=== PATIENT | female | born 1980 | race Caucasian/White ===

== ENCOUNTER 2016-12-12 18:27 | Emergency (ER) | payer OTHER ==
[~2016-12-12] VITALS: Ht 170.2 cm; Wt 88.5 kg
[2016-12-12] MEDS ORDERED: BUSP5TA PO (18:43)
[2016-12-12] MEDS ORDERED: SERT25TA PO (18:43)
[2016-12-12] MEDS ORDERED: CLEO300C2 PO (18:43)
[2016-12-12] MEDS ORDERED: CYPR4TA PO (18:43)
[2016-12-12] MEDS ORDERED: MAGIC MOUTHWASH SUSPENSION BTL SS ONE ×2 (22:45→23:00)
[2016-12-12] MEDS ORDERED: KETOROLAC 30 MG/ML VIAL (J1885) IV ONE (22:45)
[2016-12-12] MEDS ORDERED: diphenhydrAMINE INJ 50MG/ML VIAL (J1200) IV STA (22:49)
[2016-12-12] MEDS ORDERED: FAMOTIDINE INJ 20MG/2ML VIAL (S0028) IVP ONE (23:00)
[2016-12-12] MEDS ORDERED: methylPREDNISolone INJ 125 MG/2 ML VIAL (J2930) IV ONE (23:00)
[2016-12-12 23:08] LABS: BASO # 0.1 K/mm3 (0.0-0.2); BASO % 0.3 % (0.0-1.0); EOS # 0.4 K/mm3 (0.0-0.50); EOS % 1.7 % (0.0-3.0); LARGE UNSTAINED CELL # 0.3 K/mm3 (0.0-0.4); LARGE UNSTAINED CELL % 1.1 % (0.0-4.0); LYMPH # 5.4 K/mm3 (1.5-4.5); LYMPH % 21.3 % (24.0-44.0); MEAN CORPUSCULAR HEMOGLOBIN 31.2 pg (27.0-33.0); MEAN CORPUSCULAR HGB CONC 34.3 g/dl (32.0-36.5); MEAN CORPUSCULAR VOLUME 90.9 fl (80.0-96.0); MONO # 1.2 K/mm3 (0.0-0.8); NEUTROPHILS % 70.6 % (36.0-66.0); PLATELET COUNT, AUTOMATED 395 k/mm3 (150-450); RED CELL DISTRIBUTION WIDTH 12.6 % (11.5-14.5)
[2016-12-12 23:09] LABS: WHITE BLOOD COUNT 24.1 K/mm3 (4.0-10.0)
[2016-12-12 23:29] LABS: ANION GAP 8 MEQ/L (8-16); BLOOD UREA NITROGEN 12 MG/DL (7-18); CALCIUM LEVEL 9.2 MG/DL (8.5-10.1); CARBON DIOXIDE LEVEL 26 MEQ/L (21-32); CHLORIDE LEVEL 103 MEQ/L (98-107); CREATININE FOR GFR 1.06 MG/DL (0.55-1.02); GLOMERULAR FILTRATION RATE > 60.0 (>60); GLUCOSE, FASTING 102 MG/DL (70-105); POTASSIUM SERUM 3.4 MEQ/L (3.5-5.1); SODIUM LEVEL 137 MEQ/L (136-145)
[2016-12-12 23:44] LABS: ERYTHROCYTE SEDIMENTATION RATE 14 mm/hr (0-20)
[2016-12-13] MEDS ORDERED: PIPERACILLIN/TAZOBACTAM SOD 3.375 GM in D5W MINI-BAG PLUS 50 ML IV ONE (00:45)
[2016-12-13] MEDS ORDERED: ISOVUE-370 76% 100ML VIAL (Q9967) As Ordered ONE (00:53)
--- NOTE | 2016-12-13 01:50 | REPUSA ---
CLINICAL HISTORY: Swollen lips. TECHNIQUE: Multiple axial CT images were obtained through the neck with IV contrast material. MPR cor onal and sagittal sequences were obtained. COMMENTS: Diffuse edema and swelling of the lips. Mild tonsillar enlargement. The oropharyngeal soft tissues are otherwise normal and bilaterally symmetric. The piriform sinuses a re normal. There is no supra or infraglottic laryngeal mass. The proximal trachea is normal. There is no paravertebral soft tissue mass. The salivary glands are normal. The paravertebral soft tissue space is normal. Limited images through the posterior fossa demonstrate no evidence for tonsilar herniation. Evaluation of the visualized lung apices reveals no evidence for abnormality. There is no evidence for abnormal enhancement. 1.2 cm nodule in the left upper lobe. Mildly prominent cervical lymph nodes. IMPRESSION: Swollen lips. Mild tonsillar enlargement. Probably an inflammatory pathology. No critical airway narrowing. Mildly prominent cervical lymph nodes. Thank you for your kind referral of this patient.
[2016-12-13] MEDS ORDERED: PRED20TA PO (02:43)
[2016-12-13] MEDS ORDERED: AUGM875T27 PO (02:43)
[2016-12-13 03:05] VITALS: BP 154/96
== END 2016-12-13 03:06 | disposition home or self-care (01) ==
LOC: M ED 20:36
DX: L03.211 Cellulitis of face (principal); F41.9 Anxiety disorder, unspecified; F33.9 Major depressive disorder, recurrent, unspecified; Z79.899 Other long term (current) drug therapy; Z88.3 Allergy status to other anti-infective agents; Z88.8 Allergy status to other drugs, medicaments and biological substances; F17.210 Nicotine dependence, cigarettes, uncomplicated

== ENCOUNTER 2016-12-14 07:54 | Emergency (ER) | payer OTHER ==
[~2016-12-14] VITALS: Ht 170.2 cm; Wt 90.7 kg
[~2016-12-14 07:54] MED LIST: AUGM875T27 PO; BUSP5TA PO; CLEO300C2 PO; CYPR4TA PO; PRED20TA PO; SERT25TA PO
[2016-12-14] MEDS ORDERED: IPRATROPIUM 0.5MG/ALBUTEROL 2.5MG INH SOL UD 3ML (DUONEB)(J7620) NEB ONE (10:30)
[2016-12-14] MEDS ORDERED: LIDOCAINE VISCOUS 2% SOLN 15ML UDC SSP ONE (11:30)
[2016-12-14 15:11] VITALS: BP 105/65
== END 2016-12-14 15:12 | disposition home or self-care (01) ==
LOC: M ED 09:32
DX: R06.02 Shortness of breath (principal); F41.9 Anxiety disorder, unspecified; F32.9 Major depressive disorder, single episode, unspecified; G43.909 Migraine, unspecified, not intractable, without status migrainosus; F17.200 Nicotine dependence, unspecified, uncomplicated; Z88.8 Allergy status to other drugs, medicaments and biological substances

== ENCOUNTER 2018-09-18 17:27 | Emergency (ER) | payer MEDICAID, OTHER, SELFPAY ==
[~2018-09-18] VITALS: Ht 167.6 cm; Wt 88.6 kg
[~2018-09-18 17:27] MED LIST changes: -AUGM875T27 PO; +AUGM875T28 PO; -SERT25TA PO; +SERT25TA85 PO
[2018-09-18] MEDS ORDERED: TIZA2CAP PO (18:53)
[2018-09-18] MEDS ORDERED: MOTR200T44 PO (18:53)
[2018-09-18] MEDS ORDERED: VENL75TA2 PO (18:53)
[2018-09-18 20:33] VITALS: BP 162/100
[2018-09-18] MEDS ORDERED: NS 1,000 ML IV ONE (20:45)
[2018-09-18] MEDS ORDERED: MORPHINE 4 MG/ML 1ML VIAL/SYRINGE (J2270) IV ONE (20:45)
[2018-09-18] MEDS ORDERED: METOCLOPRAMIDE INJ 10MG/2ML VIAL (J2765) IV ONE (20:45)
[2018-09-18 20:57] LABS: BASO # 0.1 10^3/uL (0.0-0.2); BASO % 0.3 % (0.0-1.0); EOS # 0.3 10^3/uL (0.0-0.50); EOS % 1.4 % (0.0-3.0); LYMPH # 3.6 10^3/uL (1.5-4.5); LYMPH % 18.4 % (24.0-44.0); MEAN CORPUSCULAR HEMOGLOBIN 31.5 pg (27.0-33.0); MEAN CORPUSCULAR HGB CONC 33.3 g/dl (32.0-36.5); MEAN CORPUSCULAR VOLUME 94.4 fl (80.0-96.0); MONO # 1.3 10^3/uL (0.0-0.8); MONO % 6.6 % (0.0-5.0); NEUTROPHILS # 14.2 10^3/uL (1.8-7.7); NEUTROPHILS % 72.7 % (36.0-66.0); PLATELET COUNT, AUTOMATED 340 10^3/uL (150-450); RED BLOOD COUNT 4.13 10^6/uL (4.00-5.40); WHITE BLOOD COUNT 19.5 10^3/uL (4.0-10.0)
[2018-09-18 21:14] LABS: BLOOD UREA NITROGEN 6 MG/DL (7-18); C REACTIVE PROTEIN QUANTITATIV 7.55 MG/DL (0.00-0.30); CALCIUM LEVEL 8.4 MG/DL (8.5-10.1); CARBON DIOXIDE LEVEL 21 MEQ/L (21-32); CHLORIDE LEVEL 111 MEQ/L (98-107); CREATININE FOR GFR 0.85 MG/DL (0.55-1.30); GLOMERULAR FILTRATION RATE > 60.0 (>60); GLUCOSE, FASTING 86 MG/DL (70-100); POTASSIUM SERUM 3.8 MEQ/L (3.5-5.1); SODIUM LEVEL 139 MEQ/L (136-145)
[2018-09-18] MEDS ORDERED: CLINDAMYCIN 900 MG in APPROPRIATE DILUENT 1 EA IV ONE (21:15)
[2018-09-18] MEDS ORDERED: ISOVUE-370 76% 100ML VIAL (Q9967) As Ordered ONE (21:28)
[2018-09-18 21:52] LABS: ERYTHROCYTE SEDIMENTATION RATE 38 mm/hr (0-20)
--- NOTE | 2018-09-18 22:22 | REPVR ---
EXAM: CT Neck With Contrast EXAM DATE/TIME: 09/18/2018 9:51 PM CLINICAL HISTORY: 37 years old, female; Pain; Neck pain; Additional info: Left lower jaw pain/swelling, dental injury TECHNIQUE: Axial computed tomography images of the neck with intravenous contrast. All CT scans at this facility use at least one of these dose optimization techniques: automated exposure control; mA and/or kV adjustment per patient size (includes targeted exams where dose is matched to clinical indication); or iterative reconstruction. Coronal and sagittal reformatted images were created and reviewed. Technologist notes: Facility exam id and description: [facility]. [facility] CT neck with contrast COMPARISON: CT Neck with contrast 12/13/2016 12:56 AM FINDINGS: Asymmetric left pre-mandibular facial soft tissue swelling and skin thickening is present. Bony resorption is present at the base of the mandibular left central and lateral incisors and second premolar and also the right mandibular lateral incisor and canine. Nonorganized edema or fluid is present superficial to the left mandibular body. No drainable organized abscess. Parapharyngeal and posterior nasopharynx soft tissue planes are symmetric. No asymmetric enlargement or inflammation of the pharyngeal tonsils. Vascular structures of the neck enhance normally. Prominent bilateral cervical chain and jugulodigastric lymph nodes. Muscles of mastication and strap muscles of the neck appear normal. Parotid and minor salivary glands are unremarkable. Floor of the mouth and tongue base soft tissues appear normal. Laryngeal structures appear normal. Thyroid gland shows no abnormality. Stable calcified granuloma, left lung apex. Bony structures are unremarkable for age. IMPRESSION: Perimandibular left facial cellulitis and phlegmon, apparently secondary to periodontal dental disease. No drainable abscess. No deep soft tissue infection or airway compromise Electronically signed by: Francois Sage On 09/18/2018 22:21:38 PM
[2018-09-18] MEDS ORDERED: CLEO300C2 PO (23:02)
[2018-09-18] MEDS ORDERED: HYDR-3715 PO (23:02)
[2018-09-18] MEDS ORDERED: NORCO 5/325MG TABLET (BULK FOR ED) PO ONE (23:15)
--- NOTE | 2018-09-24 20:50 | ED PDOC ---
Post-Departure Follow-Up jackie peter attisha faxed formal report of ct neck for fu Chantal Loomis MD Sep 24, 2018 20:50
== END 2018-09-18 23:21 | disposition home or self-care (01) ==
LOC: M ED 17:27
DX: L03.211 Cellulitis of face (principal); K05.30 Chronic periodontitis, unspecified; R11.0 Nausea; F41.9 Anxiety disorder, unspecified; F32.9 Major depressive disorder, single episode, unspecified; Z88.1 Allergy status to other antibiotic agents; Z88.8 Allergy status to other drugs, medicaments and biological substances; Z79.899 Other long term (current) drug therapy
CPT/HCPCS: 36415; 70491; 80048; 85025; 85652; 86140; 96374; 96375; 99284; J2270; J2765; Q9967

== ENCOUNTER 2018-12-05 16:13 | Emergency (ER) | payer MEDICAID ==
[~2018-12-05] VITALS: Ht 170.2 cm; Wt 99.1 kg
[~2018-12-05 16:13] MED LIST changes: +HYDR-3715 PO; +MOTR200T44 PO; +TIZA2CAP PO; +VENL75TA2 PO
[2018-12-05 16:57] LABS: HEMATOCRIT 40.8 % (36.0-47.0); HEMOGLOBIN 13.8 g/dl (12.0-15.5); MEAN CORPUSCULAR HEMOGLOBIN 31.7 pg (27.0-33.0); MEAN CORPUSCULAR HGB CONC 33.8 g/dl (32.0-36.5); MEAN CORPUSCULAR VOLUME 93.8 fl (80.0-96.0); PLATELET COUNT, AUTOMATED 372 10^3/uL (150-450); RED BLOOD COUNT 4.35 10^6/uL (4.00-5.40)
[2018-12-05 17:19] LABS: ALBUMIN 3.7 GM/DL (3.2-5.2); ALT/SGPT 44 U/L (12-78); BILIRUBIN,DIRECT < 0.1 MG/DL (0.0-0.2); BILIRUBIN,TOTAL 0.2 MG/DL (0.2-1.0); BLOOD UREA NITROGEN 12 MG/DL (7-18); CALCIUM LEVEL 8.8 MG/DL (8.5-10.1); CARBON DIOXIDE LEVEL 24 MEQ/L (21-32); CHLORIDE LEVEL 113 MEQ/L (98-107); CREATININE FOR GFR 1.22 MG/DL (0.55-1.30); GLOMERULAR FILTRATION RATE 52.5 (>60); GLUCOSE, FASTING 172 MG/DL (70-100); POTASSIUM SERUM 4.3 MEQ/L (3.5-5.1); SODIUM LEVEL 140 MEQ/L (136-145); TOTAL PROTEIN 6.7 GM/DL (6.4-8.2)
[2018-12-05 17:22] LABS: BASOPHILS 1 % (0-4); EOSINOPHILS 2 % (0-5); LYMPHOCYTES 44 % (16-52); MONOCYTES 5 % (0-8); NEUTROPHILS 48 % (35-75); PLATELET ESTIMATE NORMAL (NORMAL)
[2018-12-05] MEDS ORDERED: CLAR10CA3 PO (17:42)
[2018-12-05 17:52] VITALS: BP 134/82
== END 2018-12-05 18:02 | disposition home or self-care (01) ==
LOC: M ED 16:13
DX: R30.0 Dysuria (principal); R79.89 Other specified abnormal findings of blood chemistry; L29.9 Pruritus, unspecified; N18.3 Chronic kidney disease, stage 3 (moderate); Z79.899 Other long term (current) drug therapy; Z88.1 Allergy status to other antibiotic agents; Z88.8 Allergy status to other drugs, medicaments and biological substances

== ENCOUNTER 2018-12-17 15:41 | Emergency (ER) | payer MEDICAID ==
[~2018-12-17] VITALS: Ht 167.6 cm; Wt 100.0 kg
[~2018-12-17 15:41] MED LIST changes: +CLAR10CA3 PO
[2018-12-17] MEDS ORDERED: PRED20TA PO (18:47)
[2018-12-17] MEDS ORDERED: CYCL10TA PO (18:47)
[2018-12-17 18:53] LABS: HEMATOCRIT 41.9 % (36.0-47.0); HEMOGLOBIN 14.1 g/dl (12.0-15.5); MEAN CORPUSCULAR HEMOGLOBIN 31.4 pg (27.0-33.0); MEAN CORPUSCULAR HGB CONC 33.7 g/dl (32.0-36.5); MEAN CORPUSCULAR VOLUME 93.3 fl (80.0-96.0); PLATELET COUNT, AUTOMATED 358 10^3/uL (150-450); RED BLOOD COUNT 4.49 10^6/uL (4.00-5.40); WHITE BLOOD COUNT 26.1 10^3/uL (4.0-10.0)
[2018-12-17 19:08] LABS: HCG, SERUM QUALITATIVE NEGATIVE (NEGATIVE)
[2018-12-17 19:18] LABS: EOSINOPHILS 3 % (0-5); LYMPHOCYTES 37 % (16-52); MONOCYTES 5 % (0-8); NEUTROPHILS 55 % (35-75); PLATELET ESTIMATE NORMAL (NORMAL)
[2018-12-17 19:30] LABS: ALBUMIN 3.5 GM/DL (3.2-5.2); ALT/SGPT 35 U/L (12-78); BILIRUBIN,DIRECT < 0.1 MG/DL (0.0-0.2); BILIRUBIN,TOTAL 0.2 MG/DL (0.2-1.0); BLOOD UREA NITROGEN 15 MG/DL (7-18); CALCIUM LEVEL 9.3 MG/DL (8.5-10.1); CARBON DIOXIDE LEVEL 24 MEQ/L (21-32); CHLORIDE LEVEL 109 MEQ/L (98-107); CK-MB VALUE MASS < 1.0 NG/ML (<3.6); CPK CREATINE PHOSPHOKINASE 35 U/L (26-192); CREATININE FOR GFR 0.97 MG/DL (0.55-1.30); GLOMERULAR FILTRATION RATE > 60.0 (>60); GLUCOSE, FASTING 109 MG/DL (70-100); MB/CK RELATIVE INDEX 2.86 (< OR =4); NT-PRO BNP 69 PG/ML (<125); POTASSIUM SERUM 4.1 MEQ/L (3.5-5.1); SODIUM LEVEL 140 MEQ/L (136-145); TOTAL PROTEIN 6.7 GM/DL (6.4-8.2); TROPONIN I < 0.02 NG/ML (< 0.10)
[2018-12-17] MEDS ORDERED: IPRATROPIUM 0.5MG/ALBUTEROL 2.5MG INH SOL UD 3ML (DUONEB)(J7620) NEB ONE (20:00)
[2018-12-17] MEDS ORDERED: ISOVUE-370 76% 100ML VIAL (Q9967) As Ordered ONE (20:13)
[2018-12-17 23:00] VITALS: BP 128/89
[2018-12-17] MEDS ORDERED: PROAAER10 INH (23:05)
[2018-12-17] MEDS ORDERED: ACETAMINOPHEN TAB 650MG DOSE (2X325MG) PO ONE (23:15)
--- NOTE | 2018-12-18 00:12 | ECGEPIP ---
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
--- NOTE | 2018-12-18 07:09 | REP ---
CHEST, SINGLE VIEW: Single view of the chest performed. There is no acute infiltrate. The heart is not enlarged. The mediastinal silhouette is unremarkable. An old granuloma is seen in the left apex minimally larger than the prior chest radiograph of 06/21/2016. IMPRESSION: No acute pulmonary disease. Electronically Signed by Manny Castillo MD 12/19/2018 09:00 A
--- NOTE | 2018-12-18 13:44 | REP ---
REASON: Dyspnea and tachycardia. COMPARISON EXAMINATION: None. CONTRAST: 100 mL Isovue 370. There is excellent visualization of the pulmonary arterial vasculature. There are no focal filling defects present that would be considered consistent with pulmonary emboli. The thoracic aorta is normal. There are no pleural or pericardial effusions. There is no mediastinal or hilar adenopathy. The imaged upper abdomen shows diffuse low density throughout the hepatic parenchymal. The imaged osseous structures are within normal limits. Evaluation of the lung barlow shows a large calcified nodule in the apical posterior segment of the left upper lobe representing either a large calcified granuloma of benign hamartoma. There is a 3 mm sized nodule in the left lower lobe. There are no significant abnormal nodules, masses, or opacities. IMPRESSION: 1. There is no evidence of a pulmonary embolism. 2. Benign calcified nodule in the left upper lobe as described above. 3. 3 mm sized nodule in the left lower lobe. According to the revised Fleischner's Society criteria, this represents a category 2 lesion for which a 1-year followup is recommended. 4. There is diffuse fatty infiltration of the liver. Electronically Signed by Marito Herron DO 12/18/2018 02:07 P
--- NOTE | 2018-12-18 15:04 | ED PDOC ---
Post-Departure Follow-Up [facility] faxed formal report of cta chest for fu Chantal Loomis MD December 18, 2018 15:04
== END 2018-12-17 23:30 | disposition home or self-care (01) ==
LOC: M ED 15:41
DX: R06.00 Dyspnea, unspecified (principal); N18.9 Chronic kidney disease, unspecified; M54.5 Low back pain; Z72.0 Tobacco use; R91.1 Solitary pulmonary nodule; K76.0 Fatty (change of) liver, not elsewhere classified; Z79.899 Other long term (current) drug therapy; Z88.8 Allergy status to other drugs, medicaments and biological substances
CPT/HCPCS: 71045; 71275; 80048; 80076; 82550; 82553; 83880; 84703; 85025; 93005; 93041; 94640; 94760; 99285; Q9967

== ENCOUNTER 2018-12-31 17:51 | Inpatient (IN) | payer MEDICAID, OTHER ==
[~2018-12-31] VITALS: Ht 170.2 cm; Wt 100.1 kg
[~2018-12-31 17:51] MED LIST changes: +CYCL10TA PO; +PROAAER10 INH
[2018-12-31] MEDS ORDERED: HYDR-4517 PO (18:06)
[2018-12-31 18:16] LABS: BASO % 0.3 % (0.0-1.0); EOS # 0.2 10^3/uL (0.0-0.50); EOS % 1.7 % (0.0-3.0); HEMATOCRIT 40.2 % (36.0-47.0); HEMOGLOBIN 13.8 g/dl (12.0-15.5); LYMPH # 2.6 10^3/uL (1.5-4.5); LYMPH % 21.9 % (24.0-44.0); MEAN CORPUSCULAR HEMOGLOBIN 32.4 pg (27.0-33.0); MEAN CORPUSCULAR HGB CONC 34.3 g/dl (32.0-36.5); MEAN CORPUSCULAR VOLUME 94.4 fl (80.0-96.0); MONO # 0.7 10^3/uL (0.0-0.8); MONO % 5.9 % (0.0-5.0); NEUTROPHILS # 8.4 10^3/uL (1.8-7.7); PLATELET COUNT, AUTOMATED 360 10^3/uL (150-450); RED BLOOD COUNT 4.26 10^6/uL (4.00-5.40); WHITE BLOOD COUNT 12.1 10^3/uL (4.0-10.0)
[2018-12-31] MEDS ORDERED: NS 1,000 ML IV ONE (18:45)
[2018-12-31 18:53] LABS: ACETAMINOPHEN LEVEL 17.8 UG/ML (10.0-30.0); ALBUMIN 3.3 GM/DL (3.2-5.2); ALT/SGPT 37 U/L (12-78); BILIRUBIN,DIRECT 0.1 MG/DL (0.0-0.2); BILIRUBIN,TOTAL 0.5 MG/DL (0.2-1.0); BLOOD UREA NITROGEN 11 MG/DL (7-18); CALCIUM LEVEL 8.2 MG/DL (8.5-10.1); CARBON DIOXIDE LEVEL 23 MEQ/L (21-32); CHLORIDE LEVEL 110 MEQ/L (98-107); CPK CREATINE PHOSPHOKINASE 79 U/L (26-192); CREATININE FOR GFR 0.88 MG/DL (0.55-1.30); ETHYL ALCOHOL (ETHANOL) < 0.003 % (0.000-0.010); GLOMERULAR FILTRATION RATE > 60.0 (>60); GLUCOSE, FASTING 136 MG/DL (70-100); SALICYLATE LEVEL 5.7 MG/DL (5.0-30.0); SODIUM LEVEL 140 MEQ/L (136-145)
[2018-12-31 19:05] LABS: HCG, SERUM QUALITATIVE NEGATIVE (NEGATIVE)
[2018-12-31] MEDS ORDERED: HYDROCORTISONE 1% CREAM 30 GM TOP ONE (20:00)
[2018-12-31 22:21] LABS: AMPHETAMINES LEVEL URINE NEGATIVE (NEGATIVE); BARBITURATES URINE NEGATIVE (NEGATIVE); BENZODIAZEPINES URINE NEGATIVE (NEGATIVE); CANNABINOIDS URINE NEGATIVE (NEGATIVE); COCAINE METABOLITE URINE NEGATIVE (NEGATIVE); METHADONE URINE NEGATIVE (NEGATIVE); OPIATES URINE POSITIVE (NEGATIVE); PHENCYCLIDINE URINE NEGATIVE (NEGATIVE)
[2019-01-01] MEDS ORDERED: LORazepam 2 MG TAB PO ONE (03:30)
[2019-01-01] MEDS ORDERED: VENLAFAXINE **XR** 75MG CAPSULE PO ONE (03:30)
[2019-01-01] MEDS ORDERED: VENLAFAXINE 37.5 MG TAB PO ONE (03:30)
[2019-01-01] MEDS ORDERED: PROAAER10 INH (07:18)
[2019-01-01] MEDS ORDERED: VENL150C43 PO (07:18)
[2019-01-01] MEDS ORDERED: LORA-674 PO (07:18)
--- NOTE | 2019-01-01 08:15 | ECGEPIP ---
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
[2019-01-01 14:15] VITALS: BP 150/95
[2019-01-01] MEDS ORDERED: traZODone 50 MG TAB PO PRN (14:15)
[2019-01-01] MEDS ORDERED: MOM 30ML SUSPENSION UDC PO PRN (14:15)
[2019-01-01] MEDS ORDERED: hydrOXYzine 25 MG TAB PO PRN (14:15)
[2019-01-01] MEDS ORDERED: ALBUTEROL 90 MCG/ACT 8GM HFA INHALER INH PRN (14:15)
[2019-01-01] MEDS ORDERED: MAALOX 30 ML SUSP *UDC PO PRN (14:15)
[2019-01-01] MEDS ORDERED: CYCLOBENZAPRINE 10 MG TAB PO PRN (14:15)
[2019-01-01] MEDS: ACETAMINOPHEN TAB 650MG DOSE (2X325MG) PO PRN (15:57)
[2019-01-01] MEDS: VENLAFAXINE **XR** 75MG CAPSULE PO SCH (21:41)
[2019-01-02 06:50] VITALS: BP 124/71
[2019-01-02] MEDS: LORATADINE 10 MG TAB PO SCH (09:00)
[2019-01-02] MEDS: ACETAMINOPHEN TAB 650MG DOSE (2X325MG) PO PRN (10:35)
--- NOTE | 2019-01-02 12:40 | HPEPDOC ---
General Date of Admission Jan 01, 2019 at 15:40 Date of Service: Jan 02, 2019 Chief Complaint The patient is a 38-year-old female who presented to [facility] after she had consumed 10 pills of hydrocodone History of Present Illness Patient is a 38-year-old female with a past medical history of depression, anxiety, and CKD3 who presented to the emergency room after she had consumed 10 pills of hydrocodone. Patient had reported that she did not try to kill herself and took instead for back pain and body aches. Patient denies any current suicidal or homicidal ideation and she has not attempted this in the past. Currently, this is being managed by psychiatry. Hospitalist service was consulted for medical management. Patient denies any headache, nausea, vomiting, chest pain, shortness of breath, palpitations, cough, abdominal pain, constipation, diarrhea or urinary discomfort. Patient also reports that she has not experienced any fevers or chills in the last 2 weeks. Home Medications Scheduled Loratadine (Loratadine) 10 Mg Tablet, 10 MG PO DAILY, (Reported) Venlafaxine HCl (Venlafaxine HCl ER) 150 Mg Cap.er.24h, 150 MG PO QHS, (Reported) Scheduled PRN Albuterol Sulfate (Proair Hfa) 8.5 Gm Hfa.aer.ad, 2 PUFF INH Q4H PRN for SHORTNESS OF BREATH, (Reported) Cyclobenzaprine HCl (Cyclobenzaprine HCl) 10 Mg Tablet, 10 MG PO TID PRN for MUSCLE SPASMS, (Reported) Allergies Coded Allergies: bacitracin (Verified Allergy, Unknown, rash, 12/05/18) etodolac (Verified Allergy, Unknown, difficulty breathing, 12/05/18) Past Medical History Medical History Depression, anxiety, and CKD3 Surgical History Hysterectomy after failed Laparoscopic resection of an IUD Abscess incision and drainage Appendectomy Family History - Mother and Father with a history of high cholesterol and hypertension Social History - Denies the use of illicit drugs; reports social alcohol use; smoker of 18 years at less than one PPD - Denies recent travel or sick contacts - Lives with family - 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; 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 Review of Systems Other systems 10 point review of systems complete, all negative otherwise stated in HPI Vital Signs - Vitals: BP 124/71, HR 96, RR 18, Sat 97%RA, Temp 97.4F - General: Lying in bed, No acute distress, Speaking in full sentences, AAOx3 - HEENT: NC, AT, PERRLA, EOMI - CVS: +S1S2, no appreciable murmurs - Lungs: Fair air entry bilaterally, Clear to auscultation, No wheezing / rales / rhonchi - Abdomen: Soft, Non-distended, Non-tender - Extremities: No lower extremity edema, No calf tenderness - Neuro: No focal motor or sensory deficit - Skin: No visible rashes Plan / VTE VTE Prophylaxis Ordered?: Yes Plan Plan Possible drug overdose; suspected to be suicidal ideation - Currently patient denies any suicidal, or homicidal ideation - History of depression and anxiety - Patient has reported consumption of 10 pills of hydrocodone - Does not have a history of suicidal or homicidal ideation - Currently being managed by psychiatry Mild leukocytosis - possibly 2/2 reactive etiology; less likely 2/2 infectious etiology - Review of systems is negative - Patient remains afebrile and hemodynamically stable - Will continue to hold off on antibiotics Reported CKD3 - Creatinine is at 0.88 - Reports that she follows with nephrology as an outpatient No significant past medical history DVT prophylaxis - c/w early ambulation Thank you for allowing us to participate in the care of this patient, please re- consult as needed Dairy Tester was present throughout the duration of this history and physical SABRINA OCHOA MD Jan 02, 2019 12:40
--- NOTE | 2019-01-02 13:01 | MHHPEPDOC ---
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 Pt in the ED denied that the overdose was a suicide attempt and stated "I had a rough week and just wanted to go to sleep" and was having a lot of physical pain due to Stage 3 renal disease. Pt did endorsing increasing depression and anxiety in the ED triggered by her chronic pain, of grandmother last week that she was really close with, adult children moving out of her home last week, stage 3 renal disease, breaking dental bridge last week, and close of her current employment causing lose of job at [employer] in 1 month. In the ED per reporte dly tearful, but denied SI and very adamant on being able to go home, minimizing symptoms to be d/c. 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), depression Previous Psychiatric Admissions: denies Suicide Attempts: denies Psychiatric Follow-up: PCP prescribes effexor to her Psychiatric medications: effexor 150mg qhs Past Medical History Medical Problems Stage 3 CKD, chronic pain Head Injury: No Seizures: No Hospitalizations: Yes Surgeries: Yes (appendectomy, hysterectomy, failed IUD removal, laproscopy, drained neck abscess, dental surgery) Family Medical/Psychiatric HX Medical Problems noncontributory Psychiatric Disorders: No Addiction: No Suicide Attemps/Completions: No Addiction History nicotine, opioids (utox postive opiates, prescribed for chronic pain), methamphetamines (sober 2yrs) Social History Childhood: . Abuse/Trauma:. Current Living Situation: Lives alone in [place], adult children moved out l week Education: . 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 Social Support: . Legal: . Marital: , has adult children Mental Status Examination General Appearance: well groomed, appears stated age, hospital scubs/clothing Build: overweight Demeanor: average, other (cried when brought up grandmother's passing as very close with her) Eye Contact: average Activity: average Behavior: cooperative Speech: clear, normal volume, reg/rate,rhythm,volume Mood: depressed, anxious Mood "fine" Affect: full, appropriate, congruent Thought Process: logical/linear, depressed, intact, other (grief) Thought Content (Delusions): none reported, denies SI, HI, AVH Thought Content (Other): none reported, appropriate, other (grief) Thought Content (Aggressive): none reported Perception (Hallucinations): none reported Perception (Other): none reported Cognition (Impairment of): none reported Cognition(Intelligence Est.): average Oriented: Awake, Alert, Oriented times three Insight: fair Judgment: Fair Psychosis: Denies Diagnoses Adjustment d/o with depressed mood Bereavement A-FIB/CHADSVASC A-FIB History Current/History of A-Fib/PAF?: No Current PO Anticoag Therapy: No Age/Risk Factor Scoring CHADSVASC: CHADSVASC Response (Comments) Value Hx of Vascular Disease Yes 1 Total 1 Treatment Treatment ordered: NONE Reason Anticoagulant not given: Not indicated/[id number] Assessment Pt seen and states she here b/c Monday she was in a lot of physical pain from her back and emotional pain so she took "a lot of hydrocodones." States roughly 10. States it wasn't a SA but just wanted to be able to take care of things around the house and eventual get some rest but still wanted to wake up. States she feels "fine" and just wants to go home to stay with her daughter for a few days and see her children and "grandbabies", "get back to life and go back to work." States she does have future plans to move to [place] in with friends there and get a job. States she has no more hydrocodone at home and only has effexor xr. States is effexor xr is beneficial at current dose, denies insomnia, and is tolerating it well. Denies SI/HI, hallucinations, delusions. Initial Treatment Plan 1. Patient was admitted on a 9.39 status. 2. Complete history was obtained. 3. With patients permission, family will be contacted and database will be expanded. 4. Patients medication regimen will be reviewed and changed accordingly. 5. Patient will be provided with protected environment. 6. Patient will be treated with individual, group, and milieu therapies. 7. Patient will receive supportive psych-education. 8. Discharge planning will commence immediately. 9. Outpatient follow-up treatment will be strongly recommended. 10. The initial treatment plan will focus initially on: * Depression. * Risk for suicide. * Substance abuse. 11. effexor xr 150mg qhs ESTIMATED LENGTH OF STAY: 3-5 DAYS. TIME SPENT COUNSELING AND COORDINATING INITIAL CARE: 60 minutes. Vital Signs Vital Signs Date Time Temp Pulse Resp B/P (MAP) Pulse Ox O2 Delivery O2 Flow Rate FiO2 01/02/19 06:50 97.4 96 14 124/71 (88) 01/01/19 15:12 97 01/01/19 11:56 Room Air Medications Scheduled Loratadine (Loratadine) 10 Mg Tablet, 10 MG PO DAILY, (Reported) Venlafaxine HCl (Venlafaxine HCl ER) 150 Mg Cap.er.24h, 150 MG PO QHS, (Reported) Scheduled PRN Albuterol Sulfate (Proair Hfa) 8.5 Gm Hfa.aer.ad, 2 PUFF INH Q4H PRN for SHORTNESS OF BREATH, (Reported) Cyclobenzaprine HCl (Cyclobenzaprine HCl) 10 Mg Tablet, 10 MG PO TID PRN for MUSCLE SPASMS, (Reported) Allergies Coded Allergies: bacitracin (Verified Allergy, Unknown, rash, 12/05/18) etodolac (Verified Allergy, Unknown, difficulty breathing, 12/05/18) AICHA NICOLE DO Jan 02, 2019 13:01
[2019-01-02] MEDS: hydrOXYzine 25 MG TAB PO PRN (17:52)
[2019-01-02 18:00] VITALS: BP 128/61
[2019-01-02] MEDS: VENLAFAXINE **XR** 75MG CAPSULE PO SCH (20:03)
[2019-01-03 06:54] VITALS: BP 130/77
[2019-01-03] MEDS: LORATADINE 10 MG TAB PO SCH (09:24)
[2019-01-03] MEDS: hydrOXYzine 25 MG TAB PO PRN (09:24)
[2019-01-03] MEDS ORDERED: HYDR-3363 PO (09:34)
[2019-01-03] MEDS ORDERED: VENL150C43 PO (09:34)
[2019-01-03] MEDS ORDERED: TRAZ1TAB10 PO (09:35)
--- NOTE | 2019-01-03 09:35 | MHDSPDOC ---
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 Pt in the ED denied that the overdose was a suicide attempt and stated "I had a rough week and just wanted to go to sleep" and was having a lot of physical pain due to Stage 3 renal disease. Pt did endorsing increasing depression and anxiety in the ED triggered by her chronic pain, of grandmother last week that she was really close with, adult children moving out of her home last week, stage 3 renal disease, breaking dental bridge last week, and close of her current employment causing lose of job at [employer] in 1 month. In the ED per reportedly tearful, but denied SI and very adamant on being able to go home, minimizing symptoms to be d/c. She currently takes effexor xr prescribed by her PCP and has no psychiatric follow- up. CONSULTANTS INVOLVED: none TREATMENT AND PROGRESS ON THE UNIT : Pt was admitted to [facility], seen for psychiatric assessment and she was restarted on her outpatient effexor xr 150mg qhs. She was provided vistaril 25mg q6hr prn anxiety and trazodone 50mg qhs prn insomnia. Pt found her medications beneficial and tolerated them well. She attended groups daily during her stay. Her symptoms improved with treatment. On day of discharge she denied depression, anxiety, insomnia, SI/HI, hallucinations, delusions. She was discharged home with follow-up at [facility]. She felt safe for discharge. DISCHARGE ASSESSMENT: Pt seen and states that her mood is good and she looking forward to going home today and seeing children and grandchildren that she misses. States she's being social on the milieu which is beneficial. States she slept well last night. Feels she is tolerating her medications and it's beneficial. She is attending groups and finding them helpful. She denies depression, anxiety, insomnia, SI/HI, hallucinations, delusions. Pt feels safe to be discharged home. MENTAL STATUS EXAMINATION ON DISCHARGE: General Appearance: well groomed, appears stated age, hospital scrubs/clothing Build: overweight Demeanor: average Eye Contact: average Activity: average Behavior: cooperative Speech: clear, normal volume, reg/rate,rhythm,volume Mood: euthymic, full Mood "good" Affect: full, appropriate, congruent Thought Process: logical/linear, intact Thought Content (Delusions): none reported, denies SI, HI, AVH Thought Content (Other): none reported, appropriate Thought Content (Aggressive): none reported Perception (Hallucinations): none reported Perception (Other): none reported Cognition (Impairment of): none reported Cognition(Intelligence Est.): average Oriented: Awake, Alert, Oriented times three Insight: good Judgment: good Psychosis: Denies MEDICATIONS ON DISCHARGE: effexor xr 150mg qhs vistaril 25mg q6hr prn anxiety trazodone 50mg qhs prn insomnia PLAN/FOLLOWUP ARRANGEMENTS: D/c home [facility] follow-up at [facility]. The amount of time spent in the coordination of care for this patient was approximately 30 minutes. Vital Signs/I&Os Vital Signs Date Time Temp Pulse Resp B/P (MAP) Pulse Ox O2 Delivery O2 Flow Rate FiO2 01/03/19 06:54 98.2 87 16 130/77 (94) 01/01/19 15:12 97 01/01/19 11:56 Room Air Medications Scheduled Loratadine (Loratadine) 10 Mg Tablet, 10 MG PO DAILY, (Reported) Venlafaxine HCl (Venlafaxine HCl ER) 150 Mg Cap.er.24h, 150 MG PO QHS, (Reported) Scheduled PRN Albuterol Sulfate (Proair Hfa) 8.5 Gm Hfa.aer.ad, 2 PUFF INH Q4H PRN for SHORTNESS OF BREATH, (Reported) Cyclobenzaprine HCl (Cyclobenzaprine HCl) 10 Mg Tablet, 10 MG PO TID PRN for MUSCLE SPASMS, (Reported) Allergies Coded Allergies: bacitracin (Verified Allergy, Unknown, rash, 12/05/18) etodolac (Verified Allergy, Unknown, difficulty breathing, 12/05/18) AICHA NICOLE DO Jan 03, 2019 9:34 am
== END 2019-01-03 10:00 | disposition home or self-care (01) | DRG 754 ==
LOC: M ED 17:51 → M ED INP 01-01 14:04 → UNDOADMIN 01-01 14:04 → M ED 01-01 15:20 → M PSY 01-01 15:40
PROVIDERS: ADMIT Psychiatry & Neurology Psychiatry; ATTEND Psychiatry & Neurology Psychiatry
DX: F43.21 Adjustment disorder with depressed mood (principal); T40.2X1A Poisoning by other opioids, accidental (unintentional), initial encounter; N18.3 Chronic kidney disease, stage 3 (moderate); F17.200 Nicotine dependence, unspecified, uncomplicated; F15.11 Other stimulant abuse, in remission; Z79.899 Other long term (current) drug therapy; Z88.8 Allergy status to other drugs, medicaments and biological substances; Z88.1 Allergy status to other antibiotic agents

== ENCOUNTER 2019-01-28 03:24 | Emergency (ER) | payer MEDICAID, OTHER ==
[~2019-01-28] VITALS: Ht 167.6 cm; Wt 96.4 kg
[~2019-01-28 03:24] MED LIST changes: +HYDR-3363 PO; +HYDR-4517 PO; +LORA-674 PO; +TRAZ1TAB10 PO; +VENL150C43 PO
[2019-01-28] MEDS ORDERED: chlorproMAZINE 25 MG TAB (Q0161) PO ONE (04:30)
[2019-01-28 04:44] VITALS: BP 125/69
== END 2019-01-28 04:46 | disposition home or self-care (01) ==
LOC: M ED 03:24
DX: F51.02 Adjustment insomnia (principal); F19.10 Other psychoactive substance abuse, uncomplicated; F41.1 Generalized anxiety disorder; F32.9 Major depressive disorder, single episode, unspecified; Z79.51 Long term (current) use of inhaled steroids; Z79.899 Other long term (current) drug therapy; Z88.1 Allergy status to other antibiotic agents; Z88.8 Allergy status to other drugs, medicaments and biological substances
CPT/HCPCS: 99284; Q0161

== ENCOUNTER 2019-02-21 18:59 | Emergency (ER) | payer OTHER ==
[~2019-02-21] VITALS: Ht 167.6 cm; Wt 96.1 kg
[2019-02-21 23:28] VITALS: BP 148/88
--- NOTE | 2019-02-22 07:18 | REP ---
LEFT WRIST, FOUR VIEWS: Four views of the left wrist performed. I see no acute fracture or dislocation. Rounded calcific density adjacent to the ulnar styloid probably represents an old avulsion fracture. IMPRESSION: No acute fracture or dislocation. There appears to be an old avulsion fracture of the ulnar styloid. Electronically Signed by Manny Castillo MD 02/22/2019 08:53 A
== END 2019-02-22 00:07 | disposition home or self-care (01) ==
LOC: M ED 18:59
DX: S63.502A Unspecified sprain of left wrist, initial encounter (principal); Y35.893A Legal intervention involving other specified means, suspect injured, initial encounter; Y92.098 Other place in other non-institutional residence as the place of occurrence of the external cause; N18.3 Chronic kidney disease, stage 3 (moderate); F17.200 Nicotine dependence, unspecified, uncomplicated; Z87.81 Personal history of (healed) traumatic fracture; Z88.3 Allergy status to other anti-infective agents; Z88.6 Allergy status to analgesic agent; Z79.899 Other long term (current) drug therapy

== ENCOUNTER 2019-04-28 12:16 | Emergency (ER) | payer OTHER ==
[~2019-04-28] VITALS: Ht 170.2 cm; Wt 91.6 kg
[2019-04-28] MEDS ORDERED: IBUP-1022 (12:51)
[2019-04-28] MEDS ORDERED: PROP20TA72 PO (12:51)
[2019-04-28] MEDS ORDERED: AMOX875T (12:51)
[2019-04-28 13:13] LABS: HEMATOCRIT 45.5 % (36.0-47.0); HEMOGLOBIN 15.1 g/dl (12.0-15.5); MEAN CORPUSCULAR HEMOGLOBIN 31.4 pg (27.0-33.0); MEAN CORPUSCULAR HGB CONC 33.2 g/dl (32.0-36.5); MEAN CORPUSCULAR VOLUME 94.6 fl (80.0-96.0); PLATELET COUNT, AUTOMATED 301 10^3/uL (150-450); RED BLOOD COUNT 4.81 10^6/uL (4.00-5.40); WHITE BLOOD COUNT 20.5 10^3/uL (4.0-10.0)
[2019-04-28] MEDS ORDERED: NS 1,000 ML IV ONE (13:30)
[2019-04-28] MEDS ORDERED: ACETAMINOPHEN 500 MG TAB PO ONE (13:30)
[2019-04-28 13:31] LABS: BLOOD UREA NITROGEN 12 MG/DL (7-18); C REACTIVE PROTEIN QUANTITATIV 6.43 MG/DL (0.00-0.30); CALCIUM LEVEL 9.3 MG/DL (8.5-10.1); CARBON DIOXIDE LEVEL 24 MEQ/L (21-32); CHLORIDE LEVEL 110 MEQ/L (98-107); CREATININE FOR GFR 1.01 MG/DL (0.55-1.30); GLOMERULAR FILTRATION RATE > 60.0 (>60); GLUCOSE, FASTING 78 MG/DL (70-100); POTASSIUM SERUM 4.5 MEQ/L (3.5-5.1); SODIUM LEVEL 140 MEQ/L (136-145)
[2019-04-28] MEDS ORDERED: ISOVUE-370 76% 100ML VIAL (Q9967) As Ordered ONE (13:35)
[2019-04-28 13:40] LABS: ERYTHROCYTE SEDIMENTATION RATE 43 mm/hr (0-20)
[2019-04-28 13:45] LABS: HCG, SERUM QUALITATIVE NEGATIVE (NEGATIVE)
[2019-04-28] MEDS ORDERED: methylPREDNISolone INJ 125 MG/2 ML VIAL (J2930) IV ONE (13:45)
[2019-04-28] MEDS ORDERED: CLINDAMYCIN 900 MG in IV 1 EA IV ONE (13:45)
[2019-04-28] MEDS ORDERED: AUGM875T28 PO (15:22)
[2019-04-28] MEDS ORDERED: NORC1TAB7 PO (15:24)
[2019-04-28] MEDS ORDERED: MAGICMW SSP (15:25)
[2019-04-28 15:31] VITALS: BP 164/93
--- NOTE | 2019-04-29 07:36 | REP ---
CT MAXILLOFACIAL WITH CONTRAST: 04/28/2019. Clinical history: Maxillary swelling, dental disease. Comparison: CT 09/18/2018. Technique: Bolus 100 mL Isovue 370 scanning through the maxillofacial region with soft tissue and bone window settings for each slice level. Coronal and sagittal reconstructions provided. Findings: Prominent soft tissue swelling of the upper lip and adjacent to the central alveolar ridge of the maxilla. There is erosion of the cortex about the prior location of the lateral central incisor of the left maxilla hypodense fluid centers around the nasal spine of the maxilla for transverse diameter of up to 2 cm and AP thickness of 6 mm. Vertical length up to 11 mm. Dental caries noted with absent left and right central incisors and with both sides showing resection of multiple maxillary teeth more on the right than left. There is prominent soft tissue swelling around the mandibular soft tissues without visible drainable collection and much less swelling inflammatory change than on the previous CT in August. The maxillary alveolar ridge shows multiple erosions or destructive lesions right and left side. Minor mucosal thickening in the floor the maxillary sinuses. Frontal sinuses, ethmoids and sphenoids grossly intact. Zygomatic arches, orbital floors, orbital struts and medial guo all intact. No other findings of the bony skull base. Submandibular and parotid glands symmetric and normal enlarged submandibular node medially adjacent to that submandibular gland 12.6 mm in short axis on the left compared to two nodes on the right there were about 7 and 9 mm in short axis. Nodes in the carotid space anterior cervical chain and posterior cervical chain also noted. Impression: 1. Soft tissue abscess adjacent to the midline maxillary alveolar ridge in subcutaneous tissues of the upper lip with low-density fluid 2 x 0.65 x 1.1 cm with adjacent edema and erosive changes in the alveolar ridge of the maxilla anteriorly. Particularly along the left side at the former site of left lateral incisor. Both lateral incisors are absent and multiple teeth removed from the maxilla more than mandible. 2. There is soft tissue swelling more diffusely about the mandible with less swelling than on the previous study and no abscess. 3. Cervical reactive adenopathy as described. Electronically Signed by Selwyn Krause MD 04/29/2019 08:50 A
== END 2019-04-28 15:37 | disposition home or self-care (01) ==
LOC: M ED 12:16
DX: S02.5XXA Fracture of tooth (traumatic), initial encounter for closed fracture (principal); K02.9 Dental caries, unspecified; K21.9 Gastro-esophageal reflux disease without esophagitis; F17.200 Nicotine dependence, unspecified, uncomplicated; F32.9 Major depressive disorder, single episode, unspecified; F41.9 Anxiety disorder, unspecified; G47.00 Insomnia, unspecified; Z79.2 Long term (current) use of antibiotics; Z79.51 Long term (current) use of inhaled steroids; Z79.891 Long term (current) use of opiate analgesic; Z79.899 Other long term (current) drug therapy; Z88.8 Allergy status to other drugs, medicaments and biological substances
CPT/HCPCS: 70487; 80048; 84703; 85027; 85652; 86140; 87040; 96365; 96366; 96375; 99284; J2930; Q9967

== ENCOUNTER 2019-05-22 10:35 | Day surgery (SDC) | payer OTHER ==
[~2019-05-22] VITALS: Ht 170.2 cm; Wt 90.7 kg
[~2019-05-22 10:35] MED LIST changes: +AMOX875T; +AMPICILLIN SOD/SULBACTAM SOD 3 GM in D5W MINI-BAG PLUS 100 ML IV ONE; +IBUP-1022; +LR 1,000 ML IV ONE; +MAGICMW SSP; +NORC1TAB7 PO; +PROP20TA72 PO; +SUGAMMADEX SODIUM 500 MG/5 ML VIAL (BRIDION) As Ordered ONE; +dexameTHASONE 4 MG/ML 1ML VIAL (J1100) IV ONE
[2019-05-22] MEDS ORDERED: LIDOCAINE 2% INJ 100 MG/5 ML SDV (FOR ANES.) As Ordered ONE (11:40)
[2019-05-22] MEDS ORDERED: ONDANSETRON 4MG/2ML VIAL (J2405) As Ordered ONE (11:40)
[2019-05-22] MEDS ORDERED: ROCURONIUM BROMIDE 50 MG/5 ML VIAL As Ordered ONE (11:40)
[2019-05-22] MEDS ORDERED: PROPOFOL 200 MG/20 ML VIAL As Ordered ONE (11:40)
[2019-05-22] MEDS ORDERED: dexameTHASONE 4 MG/ML 1ML VIAL (J1100) As Ordered ONE (11:40)
[2019-05-22] MEDS ORDERED: MIDAZOLAM INJ 2 MG/2 ML VIAL (J2250) As Ordered ONE ×2 (11:42→12:06)
[2019-05-22] MEDS ORDERED: fentaNYL 100 MCG/2 ML INJECTION (J3010) As Ordered ONE (11:42)
[2019-05-22] MEDS ORDERED: CHLORHEXIDINE GLUCONATE 0.12 % 15ML UDC (PERIDEX ORAL RINSE) As Ordered ONE (11:56)
[2019-05-22] MEDS ORDERED: LIDOCAINE 2% W/ EPINEPHRINE 1.7 ML DENTAL INJ As Ordered ONE ×2 (11:57→12:24)
[2019-05-22] MEDS ORDERED: KETAMINE HCL 200 MG/20 ML VIAL As Ordered ONE (12:19)
[2019-05-22] MEDS: fentaNYL 100 MCG/2 ML INJECTION (J3010) IV PRN ×2 (13:47→13:55)
[2019-05-22] MEDS ORDERED: ONDANSETRON 4MG/2ML VIAL (J2405) IV PRN (14:00)
[2019-05-22] MEDS ORDERED: ALBUTEROL SULFATE 2.5 MG/0.5 ML INH NEB SOLN INH ONE (14:00)
[2019-05-22] MEDS ORDERED: LR 1,000 ML IV SCH (14:00)
[2019-05-22] MEDS ORDERED: METOCLOPRAMIDE INJ 10MG/2ML VIAL (J2765) IV PRN (14:00)
[2019-05-22 14:30] VITALS: BP 143/74
[2019-05-22] MEDS: PERCOCET 5MG/325MG TAB PO PRN ×2 (14:43→15:13)
--- NOTE | 2019-05-22 18:47 | RO ---
DATE OF PROCEDURE: 05/22/2019 PREOPERATIVE DIAGNOSIS: Growth and decay in symptomatic teeth number 5, 6, 8, 9, 11, 12, 13, 14, 20, 21, 22, 23, 24, 25, 26, 27, and 29. POSTOPERATIVE DIAGNOSIS: Status post the above. PROCEDURE PERFORMED: Extraction of all the aforementioned teeth four quadrants of alveoloplasty as well as maxillary labial frenectomy. SURGEON: Dajuan Miller DMD ANESTHESIA: General endotracheal anesthesia via nasal ray. SPECIMEN: Teeth for gross only. INDICATIONS FOR PROCEDURE: Margarita is a pleasant 38-year-old female who was referred my office by the emergency room for evaluation of grossly decayed teeth and gingival swelling. Upon evaluation the patient did not have any facial swelling that she does have failing and terminal dentition with gross caries and inflamed gingiva and every single tooth area. She also has a high frenum and maxillary labial area. She does plan to have complete dentures made in the near future. Therefore we discussed remove all the teeth performing alveoloplasty and frenectomy in preparation for her upper and lower ridges to receive dentures in the near future. She does have a difficult airway therefore I propose local anesthesia and nitrous oxide in the office versus general anesthesia in an operating room setting. She does have severe dental anxiety and elected to have the latter done. A complete history and physical was performed and is in the patient's chart as well as an informed consent which was run over with the patient and is signed. DESCRIPTION OF PROCEDURE: The patient was taken back to the operating room. She was laid supine on the operating room table. Ulnar nerve protectors were placed. Noninvasive cardiac monitors were applied. At that point the patient underwent general anesthesia and was intubated with a nasal ray. She then prepped and draped in the usual sterile fashion. A time-out procedure was performed to identify the patient procedure and any other precautions. Preoperative antibiotics and steroids were administered in the IV. At this point a moist throat pack was inserted in the patient's oropharynx followed by the administration of 2% lidocaine with 1:100,000 epinephrine as local infiltration blocks full-thickness circular flap was released at sites 5, 6, 8, 9, 10, 11, 12, 13, 14 with an anterior and posterior release incisions. The facial cortices of the teeth were exposed. Small amount of buccal bone was removed with a surgiatome areas 5, 6, 8, 9, 11, 12, 13, 14. At this point the teeth were luxated and delivered with ease. All the sockets were copiously irrigated and curetted an abundant amount of necrotic and granulation tissue was removed. Rongeur's were then used to remove any sharp bony. A bone file was used to smooth everything down to a smooth finish. Copious irrigation and the flaps were then closed with 3-0 Chromic sutures. At this point the frenum was given attention where a 15 blade was used to make an to make an elliptical incision around the frenum down to the muscle layer. The frenum was removed in its entirety and cautery was used to establish hemostasis and the wound edges were then closed with 3-0 chromic sutures. Attention was then given to the lower arch where circular incision was made in teeth number 20, 21, 22, 23, 24, 25, 26, 27, and 29. Flap was fully reflected. A small amount of buccal bone was removed from areas number 20, 21, 22, 27, and 29. Teeth were then luxated and delivered teeth number 20, 21, 22, 23, 24, 25, 26, 27, 29 were luxated and delivered with forceps. Alveoloplasty was then performed with rongeurs to remove any sharp bony undercuts and into radicular areas. Copious irrigation and curettage and the flap was then closed 3-0 chromic sutures. At this point, once all the teeth were removed and gauze hemostasis was easily achieved and observed the throat pack was removed and the patient was awakened from general anesthesia and taken back to the PACU. Estimated blood loss 25 mL. Drains were no drains placed. COMPLICATIONS Were no complications mentioned time of surgery.
== END 2019-05-22 15:34 | disposition home or self-care (01) ==
LOC: M SDC 10:35
PROVIDERS: ATTEND Dentist
DX: K02.9 Dental caries, unspecified (principal); N18.3 Chronic kidney disease, stage 3 (moderate); F41.9 Anxiety disorder, unspecified; F32.9 Major depressive disorder, single episode, unspecified; Z79.899 Other long term (current) drug therapy; Z88.8 Allergy status to other drugs, medicaments and biological substances; F17.218 Nicotine dependence, cigarettes, with other nicotine-induced disorders
CPT/HCPCS: 88300; D7140; D7210; D7310; D7960; D9223; J1100; J2250; J2405; J3010

== ENCOUNTER 2019-07-06 14:10 | Emergency (ER) | payer OTHER ==
[~2019-07-06] VITALS: Ht 167.6 cm; Wt 86.4 kg
[~2019-07-06 14:10] MED LIST changes: -AMPICILLIN SOD/SULBACTAM SOD 3 GM in D5W MINI-BAG PLUS 100 ML IV ONE; -LR 1,000 ML IV ONE; -SUGAMMADEX SODIUM 500 MG/5 ML VIAL (BRIDION) As Ordered ONE; -dexameTHASONE 4 MG/ML 1ML VIAL (J1100) IV ONE
[2019-07-06 14:11] VITALS: BP 130/94
[2019-07-06] MEDS ORDERED: DOXY100C37 PO (14:35)
[2019-07-06] MEDS ORDERED: PRED20TA PO (14:35)
[2019-07-06] MEDS ORDERED: BENA25CA4 PO (14:37)
== END 2019-07-06 14:47 | disposition home or self-care (01) ==
LOC: M ED 14:10
DX: L03.90 Cellulitis, unspecified (principal); G43.909 Migraine, unspecified, not intractable, without status migrainosus; Z79.899 Other long term (current) drug therapy; Z88.8 Allergy status to other drugs, medicaments and biological substances

== ENCOUNTER 2019-08-01 19:56 | Emergency (ER) | payer OTHER ==
[~2019-08-01] VITALS: Ht 170.2 cm; Wt 86.4 kg
[~2019-08-01 19:56] MED LIST changes: +BENA25CA4 PO; +DOXY100C37 PO
[2019-08-01 19:57] VITALS: BP 144/96
[2019-08-01] MEDS ORDERED: IBUP200C25 PO (22:12)
--- NOTE | 2019-08-02 06:42 | REP ---
Clinical: Trauma. Pain. Technique: AP, lateral, bilateral oblique views right wrist . Findings: The carpal bones, surrounding osseous structures, soft tissues, and joint spaces are normal. There is no evidence for acute fracture or dislocation. No subcutaneous emphysema or radiodense foreign body. Impression: Normal right wrist series. No acute fracture or dislocation Electronically Signed by Shyam Baptiste MD 08/02/2019 06:33 A
== END 2019-08-01 23:20 | disposition home or self-care (01) ==
LOC: M ED 19:56
DX: S60.221A Contusion of right hand, initial encounter (principal); W22.8XXA Striking against or struck by other objects, initial encounter; Y92.89 Other specified places as the place of occurrence of the external cause; N18.3 Chronic kidney disease, stage 3 (moderate); K21.9 Gastro-esophageal reflux disease without esophagitis; F33.9 Major depressive disorder, recurrent, unspecified; F41.9 Anxiety disorder, unspecified; Z79.899 Other long term (current) drug therapy; Z88.1 Allergy status to other antibiotic agents; F17.210 Nicotine dependence, cigarettes, uncomplicated

== ENCOUNTER → 2019-08-21 | Outpatient (REF) | payer OTHER ==
[~2019-08-21] MED LIST changes: +IBUP200C25 PO
[2019-08-21 17:50] LABS: BLOOD UREA NITROGEN 11 MG/DL (7-18); CREATININE FOR GFR 0.84 MG/DL (0.55-1.30); GLOMERULAR FILTRATION RATE > 60.0 (>60)
== END ==
LOC: M LABDRAW1 16:59
PROVIDERS: ATTEND Physician Assistant
DX: M47.817 Spondylosis without myelopathy or radiculopathy, lumbosacral region (principal)

== ENCOUNTER 2019-09-30 21:37 | Emergency (ER) | payer OTHER ==
[~2019-09-30] VITALS: Ht 170.2 cm; Wt 93.7 kg
[2019-09-30] MEDS ORDERED: GABA-843 (23:02)
[2019-09-30] MEDS ORDERED: methylPREDNISolone INJ 125 MG/2 ML VIAL (J2930) IM ONE (23:30)
[2019-09-30] MEDS ORDERED: LIDOCAINE 5% (LIDODERM) PATCH TD ONE (23:30)
[2019-09-30] MEDS ORDERED: CYCLOBENZAPRINE 10 MG TAB PO ONE (23:30)
[2019-10-01] MEDS ORDERED: LIDO5DIS41 TOP (00:07)
[2019-10-01] MEDS ORDERED: CYCL10TA PO (00:07)
--- NOTE | 2019-10-01 00:08 | REPVR ---
PROCEDURE INFORMATION: Exam: CT Lumbar Spine Without Contrast Exam date and time: 09/30/2019 11:24 PM Age: 38 years old Clinical indication: Injury or trauma; Fall; Initial encounter; Blunt trauma (contusions or hematomas); Additional info: Fall with pain to lower back TECHNIQUE: Imaging protocol: Computed tomography images of the lumbar spine without contrast. Radiation optimization: All CT scans at this facility use at least one of these dose optimization techniques: automated exposure control; mA and/or kV adjustment per patient size (includes targeted exams where dose is matched to clinical indication); or iterative reconstruction. COMPARISON: No relevant prior studies available. FINDINGS: Vertebrae: There are no anterior wedging deformities. No acute lucent fracture lines are visualized. Discs/Spinal canal/Neural foramina: There is loss of disc height at the L2-L3 level, with associated degenerative endplate hypertrophy. No severe central canal or neural foraminal stenosis is demonstrated by CT. Central canal stenosis is moderate at the L4-L5 level. IMPRESSION: No acute lumbar spinal injury demonstrated by CT. Electronically signed by: Ariella Richard On 10/01/2019 00:08:31 AM
[2019-10-01 00:12] VITALS: BP 138/79
[2019-10-01] MEDS ORDERED: **NOTE PATIENT COMMENT** MISC XX SCH (21:00)
== END 2019-10-01 00:15 | disposition home or self-care (01) ==
LOC: M ED 21:37
DX: M54.5 Low back pain (principal); N18.3 Chronic kidney disease, stage 3 (moderate); Z79.899 Other long term (current) drug therapy; Z88.1 Allergy status to other antibiotic agents; Z88.8 Allergy status to other drugs, medicaments and biological substances; F17.210 Nicotine dependence, cigarettes, uncomplicated
CPT/HCPCS: 72131; 96372; 99283; J2930

== ENCOUNTER 2020-01-01 16:09 | Emergency (ER) | payer OTHER ==
[~2020-01-01] VITALS: Ht 170.2 cm; Wt 81.8 kg
[~2020-01-01 16:09] MED LIST changes: +CYCL-707 PO; -CYCL10TA PO; +GABA-843 PO; +LIDO5DIS41 TOP
[2020-01-01] MEDS ORDERED: NS 1,000 ML IV ONE (16:30)
[2020-01-01] MEDS ORDERED: ONDANSETRON 4MG/2ML VIAL IV ONE (16:30)
[2020-01-01 17:12] LABS: HEMATOCRIT 40.3 % (36.0-47.0); HEMOGLOBIN 13.4 g/dl (12.0-15.5); MEAN CORPUSCULAR HEMOGLOBIN 30.5 pg (27.0-33.0); MEAN CORPUSCULAR HGB CONC 33.3 g/dl (32.0-36.5); MEAN CORPUSCULAR VOLUME 91.6 fl (80.0-96.0); PLATELET COUNT, AUTOMATED 337 10^3/uL (150-450); WHITE BLOOD COUNT 15.1 10^3/uL (4.0-10.0)
[2020-01-01 17:31] LABS: AMPHETAMINES LEVEL URINE NEGATIVE (NEGATIVE); BARBITURATES URINE NEGATIVE (NEGATIVE); BENZODIAZEPINES URINE NEGATIVE (NEGATIVE); CANNABINOIDS URINE POSITIVE (NEGATIVE); COCAINE METABOLITE URINE NEGATIVE (NEGATIVE); METHADONE URINE NEGATIVE (NEGATIVE); OPIATES URINE NEGATIVE (NEGATIVE); PHENCYCLIDINE URINE NEGATIVE (NEGATIVE)
[2020-01-01 17:45] LABS: BLOOD UREA NITROGEN 10 MG/DL (7-18); CALCIUM LEVEL 8.5 MG/DL (8.5-10.1); CARBON DIOXIDE LEVEL 26 MEQ/L (21-32); CHLORIDE LEVEL 105 MEQ/L (98-107); CREATININE FOR GFR 0.91 MG/DL (0.55-1.30); GLOMERULAR FILTRATION RATE > 60.0 (>60); GLUCOSE, FASTING 134 MG/DL (70-100); SODIUM LEVEL 140 MEQ/L (136-145)
[2020-01-01 18:30] VITALS: BP 127/80
== END 2020-01-01 18:39 | disposition home or self-care (01) ==
LOC: M ED 16:09 → EDBD 16:09 → M ED 18:39
DX: T40.7X1A Poisoning by cannabis (derivatives), accidental (unintentional), initial encounter (principal); X58.XXXA Exposure to other specified factors, initial encounter; Y92.89 Other specified places as the place of occurrence of the external cause; J45.909 Unspecified asthma, uncomplicated; G89.29 Other chronic pain; Z79.899 Other long term (current) drug therapy; Z88.1 Allergy status to other antibiotic agents; Z88.8 Allergy status to other drugs, medicaments and biological substances; F17.210 Nicotine dependence, cigarettes, uncomplicated
CPT/HCPCS: 36415; 80048; 80307; 85027; 96361; 96374; 99284; J2405

== ENCOUNTER → 2020-06-11 | Outpatient (CLI) | payer OTHER ==
[2020-06-11 17:21] LABS: BLOOD UREA NITROGEN 10 MG/DL (7-18); CREATININE FOR GFR 0.95 MG/DL (0.55-1.30); GLOMERULAR FILTRATION RATE > 60.0 (>60)
== END ==
LOC: M PLALAB 14:26
PROVIDERS: ATTEND Physician Assistant
DX: M47.817 Spondylosis without myelopathy or radiculopathy, lumbosacral region (principal)

== ENCOUNTER → 2020-07-02 | Outpatient (CLI) | payer OTHER ==
[2020-07-02 17:53] LABS: HEMATOCRIT 43.4 % (36.0-47.0); HEMOGLOBIN 14.4 g/dl (12.0-15.5); MEAN CORPUSCULAR HEMOGLOBIN 31.2 pg (27.0-33.0); MEAN CORPUSCULAR HGB CONC 33.2 g/dl (32.0-36.5); MEAN CORPUSCULAR VOLUME 93.9 fl (80.0-96.0); PLATELET COUNT, AUTOMATED 319 10^3/uL (150-450); RED BLOOD COUNT 4.62 10^6/uL (4.00-5.40); WHITE BLOOD COUNT 11.1 10^3/uL (4.0-10.0)
[2020-07-02 18:44] LABS: ATYPICAL LYMPH 1 % (0-5); EOSINOPHILS 2 % (0-3); LYMPHOCYTES 32 % (16-44); MONOCYTES 9 % (0-5); NEUTROPHILS 56 % (28-66)
[2020-07-02 18:46] LABS: PLATELET ESTIMATE NORMAL (NORMAL)
[2020-07-02 20:13] LABS: ERYTHROCYTE SEDIMENTATION RATE 11 mm/hr (0-20)
== END ==
LOC: M PLALAB 15:43
PROVIDERS: ATTEND Physician Assistant
DX: M47.817 Spondylosis without myelopathy or radiculopathy, lumbosacral region (principal)

== ENCOUNTER 2020-07-21 01:50 | Emergency (ER) | payer OTHER ==
[~2020-07-21] VITALS: Ht 170.2 cm; Wt 90.4 kg
[2020-07-21] MEDS ORDERED: DULO1CAP4 (01:58)
[2020-07-21] MEDS ORDERED: GABA600T4 (01:58)
[2020-07-21 03:06] LABS: HEMATOCRIT 41.6 % (36.0-47.0); HEMOGLOBIN 13.4 g/dl (12.0-15.5); MEAN CORPUSCULAR HGB CONC 32.2 g/dl (32.0-36.5); MEAN CORPUSCULAR VOLUME 93.3 fl (80.0-96.0); PLATELET COUNT, AUTOMATED 362 10^3/uL (150-450); RED BLOOD COUNT 4.46 10^6/uL (4.00-5.40)
[2020-07-21 03:13] LABS: WHITE BLOOD COUNT 16.9 10^3/uL (4.0-10.0)
[2020-07-21 03:35] LABS: ATYPICAL LYMPH 13 % (0-5); EOSINOPHILS 3 % (0-3); LYMPHOCYTES 18 % (16-44); MONOCYTES 3 % (0-5); NEUTROPHILS 63 % (28-66)
[2020-07-21 03:36] LABS: PLATELET ESTIMATE INCREASED (NORMAL)
[2020-07-21 03:39] LABS: ALBUMIN 3.4 GM/DL (3.2-5.2); ALT/SGPT 26 U/L (12-78); BILIRUBIN,DIRECT < 0.1 MG/DL (0.0-0.2); BILIRUBIN,TOTAL 0.2 MG/DL (0.2-1.0); BLOOD UREA NITROGEN 11 MG/DL (7-18); CALCIUM LEVEL 8.2 MG/DL (8.5-10.1); CARBON DIOXIDE LEVEL 27 MEQ/L (21-32); CHLORIDE LEVEL 107 MEQ/L (98-107); CREATININE FOR GFR 1.02 MG/DL (0.55-1.30); GLOMERULAR FILTRATION RATE > 60.0 (>60); GLUCOSE, FASTING 111 MG/DL (70-100); LIPASE 391 U/L (73-393); POTASSIUM SERUM 4.2 MEQ/L (3.5-5.1); SODIUM LEVEL 141 MEQ/L (136-145); TOTAL PROTEIN 6.7 GM/DL (6.4-8.2)
--- NOTE | 2020-07-21 04:56 | REPVR ---
PROCEDURE INFORMATION: Exam: US Abdomen, Limited; Right Upper Quadrant Exam date and time: 07/21/2020 4:26 AM Age: 39 years old Clinical indication: Abdominal pain; Epigastric; Additional info: Ruq pain, leukocytosis TECHNIQUE: Imaging protocol: US abdomen. Real time ultrasound with image documentation. Limited exam focused on the right upper quadrant. COMPARISON: No relevant prior studies available. FINDINGS: Liver: Coarse echogenic attenuating liver parenchyma. Gallbladder: Normal. No gallstones. There is no gallbladder wall thickening. Common bile duct: Normal. No stones. No dilation. Pancreas: Visualized pancreas is unremarkable. Right kidney: Normal. No mass. No hydronephrosis. IMPRESSION: Steatosis. No acute findings. Electronically signed by: Socrates Trujillo On 07/21/2020 04:55:58 AM
[2020-07-21] MEDS ORDERED: ISOVUE-370 76% 100ML VIAL As Ordered ONE (05:12)
--- NOTE | 2020-07-21 05:43 | REPVR ---
PROCEDURE INFORMATION: Exam: CT Abdomen And Pelvis With Contrast Exam date and time: 07/21/2020 5:04 AM Age: 39 years old Clinical indication: Abdominal pain; Localized; Right; Additional info: Right abd pain, leukocytosis TECHNIQUE: Imaging protocol: Computed tomography of the abdomen and pelvis with intravenous contrast. Radiation optimization: All CT scans at this facility use at least one of these dose optimization techniques: automated exposure control; mA and/or kV adjustment per patient size (includes targeted exams where dose is matched to clinical indication); or iterative reconstruction. Contrast material: ISO; Contrast volume: 100 ml; Contrast route: INTRAVENOUS (IV); COMPARISON: GALLBLADDER US 07/21/2020 4:11 AM FINDINGS: Lungs: Several 3-4 mm left lower lobe pulmonary nodules. Linear atelectasis or scarring in the right middle lobe. Liver: Hepatomegaly and steatosis. Gallbladder and bile ducts: Normal. No calcified stones. No ductal dilation. Pancreas: Normal. No ductal dilation. Spleen: Normal. No splenomegaly. Adrenal glands: Normal. No mass. Kidneys and ureters: Normal. No hydronephrosis. Stomach and bowel: Unremarkable. No obstruction. No mucosal thickening. Appendix: Status post appendectomy. Intraperitoneal space: Unremarkable. No free air. No significant fluid collection. Vasculature: Unremarkable. No abdominal aortic aneurysm. Lymph nodes: Unremarkable. No enlarged lymph nodes. Urinary bladder: Mildly distended urinary bladder. Reproductive: Status post hysterectomy. Bones/joints: Multilevel degenerative disease of the lumbar spine most pronounced at L2-L3. Soft tissues: Unremarkable. IMPRESSION: Several 3-4 mm left lower lobe pulmonary nodules. For patients at low risk (minimal or absent history of smoking and of other known risk factors), no routine follow-up is indicated. For patients at high risk (history of smoking or of other known risk factors), consider optional CT Chest at 12 months. (Reference: Grace) References: Francehodillon H, et al. Guidelines for Management of Incidental Pulmonary Nodules Detected on CT Images: From the Fleischner Society 2017. Radiology. 2017;284(1):228-243. Hepatomegaly and steatosis. No bowel obstruction. Status post appendectomy. Electronically signed by: Socrates Trujillo On 07/21/2020 05:43:17 AM
[2020-07-21 06:18] VITALS: BP 134/91
== END 2020-07-21 06:19 | disposition home or self-care (01) ==
LOC: M ED 01:50
DX: R10.9 Unspecified abdominal pain (principal); R91.8 Other nonspecific abnormal finding of lung field; K76.0 Fatty (change of) liver, not elsewhere classified; R16.0 Hepatomegaly, not elsewhere classified; F32.9 Major depressive disorder, single episode, unspecified; F41.9 Anxiety disorder, unspecified; N18.30 Chronic kidney disease, stage 3 unspecified; Z91.5 Personal history of self-harm; Z79.899 Other long term (current) drug therapy; Z88.1 Allergy status to other antibiotic agents; Z88.8 Allergy status to other drugs, medicaments and biological substances
CPT/HCPCS: 74177; 76705; 80048; 80076; 81001; 83690; 85025; 99284; Q9967

== ENCOUNTER 2020-09-03 15:44 | Emergency (ER) | payer OTHER ==
[~2020-09-03] VITALS: Ht 167.6 cm; Wt 90.1 kg
[~2020-09-03 15:44] MED LIST changes: +DULO1CAP4; +GABA-282 PO; -GABA-843 PO; +GABA600T4
--- OUTSIDE RECORDS SUMMARY | 2020-09-03 16:42 | CCD | Continuity of Care Document ---
Author Author Allyson GUTIERREZ PA Organization Unknown Address [address] [place] [id number] Phone [phone] Care Team Providers Care Tip Tester Name Role Phone Chyna Barry MD [facility] [phone] Problems Description No Information Available Social History Type Date Description Comments Sex Unknown ETOH Use Rarely consumes alcohol Tobacco Use Start: Unknown Patient is a current smoker, smo kes every day smokes half a pack a day Smoking Status Reviewed: 08/21/19 Patient is a current smoker, smokes every day smokes half a pack a day Allergies, Adverse Reactions, Alerts Active Allergies Reaction Severity Comments Date Bacitracin 08/21/2019 Etodolac 08/21/2019 Fentanyl hypoxia 08/21/2019 Medications Active Medications SIG Qnty Indications Ordering Provide r Date Methocarbamol 500mg Tablets 1-2 by mouth three times a day as needed for spasm 180tabs Lázaro Lomeli MD 05/12/2020 Tizanidine HCL 2mg Tablets 1/2 to 1 tab by mouth three times a day as needed for spasm 90tabs Rosa Lomeli MD 11/25/2019 Gabapentin 600mg Tablets replace 300mg three times a day with 1 tab by mouth every night at bedtime x1 week, then 1 tab by mouth twice a day x1 week, then 1 tab by m 90tabs Jae Lomeli MD 10/28/2019 Hydroxyzine HCL 50mg Tablets Take 1 Tablet By Mouth Every 6 Hours as Needed For 30 Days Unk nown Loratadine 10mg Tablets Take 1 Tablet By Mouth Once Daily For 30 Days Unknown Montelukast Sodium 10mg Tablets Take 1 Tablet By Mouth Once Daily For 30 Days Unknown Trazodone HCL 50mg Tablets Take 1 Tablet By Mouth Once Daily AT Bedtime as Needed Unknown Venlafaxine HCL ER 75mg Caps ER 24 HR Take 3 Capsules By Mouth Once Daily With Food Unknown Diphenhydramine HCL 25mg Capsules Take 1 Capsule By Mouth Every 6 Hours Unknown 0 Proair HFA 108(90Base) mcg/Act Aer osol Inhale 2 Puffs By Mouth Every 4 To 6 Hours as Needed For Shortness Of Breath Unknown Immunizations Description No Information Available Vital Signs Date Vital Result Comment 08/21/2019 2:09pm Body Temperature 97.5 F Height 67 inches 5'7" Weight 202.00 lb BMI (Body Mass Index) 31.6 kg/m2 Results Test Acquired Date Facility Test Result H/L Range Note CBC With Differential 07/02/2020 [facility] [address] [place] [address] (315)- - White Blood Count 11.1 10 High 4.0-10.0 Red Blood Count 4.62 10 Normal 4.00-5.40 Hemoglobin 14.4 g/dL Normal 12.0-15.5 Hematocrit 43.4 % Normal 36.0-47.0 Mean Corpuscular Volume 93.9 fl Normal 80.0-96.0 Mean Corpuscular Hemoglobin 31.2 pg Normal 27.0-33.0 Mean Corpuscular HGB Conc 33.2 g/dL Normal 32.0-36.5 Red Cell Distribution Width 12.0 % Normal 11.5-14.5 Platelet Count, Automated 319 10 Normal 150-450 Nucleated Red Blood Cell % 0.0 % Normal 0-0 Laboratory test finding 07/02/2020 [facility] [address] [place] [address] (315)- - C Reactive Protein Quantitativ 0.88 mg/dL High 0.00- 0.30 Erythrocyte Sedimentation Rate 11 mm/hr Normal 0-20 Differential 07/02/2020 [facility] [address] [place] [address] (315)- - Neutrophils 56 % Normal 28-66 Lymphocytes 32 % Normal 16-44 Monocytes 9 % High 0-5 Eosinophils 2 % Normal 0-3 Atypical Lymph 1 % Normal 0-5 Laboratory test finding 07/02/2020 [facility] [address] [place] [address] (315)- - Platelet Estimate NORMAL Normal Normal Creatinine With GFR 06/11/2020 [facility] [address] [place] [address] (315)- - Creatinine For GFR 0.95 mg/dL Normal 0.55-1.30 Glomerular Filtration Rate > 60.0 Normal >60 1 Laboratory test finding 06[facility]11[facility] [address] [place] [address] (315)- - Blood Urea Nitrogen 10 mg/dL Normal 7-18 1 Units are mL/min/1.73 m2 Chronic Kidney Disease Staging per NKF: Stage I & II GFR >=60 Normal to Mildly Decreased Stage III GFR 30-59 Moderately Decreased Stage IV GFR 15-29 Severely Decreased Stage V GFR <15 Very Little GFR Left ESRD GFR <15 on [employer] Procedures Date Code Description Status 07/16/2020 75429 Manual Therapy Each 15 Minutes C ompleted 07/16/2020 19718 Therapeutic Procedure, Each 15 M inutes Completed 07/16/2020 57127 Hot Or Cold Packs Completed 07/14/2020 16905 Manual Therapy Each 15 Minutes C ompleted 07/14/2020 41452 Therapeutic Procedure, Each 15 M inutes Completed 07/10/2020 76406 Manual Therapy Each 15 Minutes C ompleted 07/10/2020 07428 Therapeutic Procedure, Each 15 M inutes Completed 06/19/2020 89099 Manual Therapy Each 15 Minutes C ompleted 06/19/2020 89511 Therapeutic Procedure, Each 15 M inutes Completed 06/16/2020 25377 Manual Therapy Each 15 Minutes C ompleted 06/16/2020 57720 Therapeutic Procedure, Each 15 M inutes Completed 06/12/2020 67960 Therapeutic Procedure, Each 15 M inutes Completed 06/12/2020 59128 Manual Therapy Each 15 Minutes C ompleted 06/10/2020 20654 Manual Therapy Each 15 Minutes C ompleted 06/10/2020 86165 Therapeutic Procedure, Each 15 M inutes Completed 06/05/2020 51446 Manual Therapy Each 15 Minutes C ompleted 06/05/2020 06970 Therapeutic Procedure, Each 15 M inutes Completed 06/05/2020 59231 Hot Or Cold Packs Completed 06/02/2020 92979 Manual Therapy Each 15 Minutes C ompleted 06/02/2020 65667 Therapeutic Procedure, Each 15 M inutes Completed 05/29/2020 25248 Manual Therapy Each 15 Minutes C ompleted 05/29/2020 13514 Therapeutic Procedure, Each 15 M inutes Completed 05/29/2020 72276 Hot Or Cold Packs Completed 05/27/2020 66833 Physical Therapy Eval - Mod Comp lexity Completed Medical Devices Description No Information Available Encounters Type Date Location Provider Dx Diagnosis [place] M47.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, lumbosacr region M51.27 Other intervertebral disc di splacement, lumbosacral region M51.37 Other intervertebral disc de generation, lumbosacral region M48.061 Spinal stenosis, lumbar junior on without neurogenic carol Office Visit 07/01/2020 3:30p ARABELLA Messina M47.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, lumbosacr region M51.27 Other intervertebral disc di splacement, lumbosacral region M79.18 Myalgia, other site M51.37 Other intervertebral disc de generation, lumbosacral region M48.061 Spinal stenosis, lumbar junior on without neurogenic carol Office Visit 05/12/2020 10:00a ARABELLA Messina M47.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, lumbosacr region M51.37 Other intervertebral disc de generation, lumbosacral region M51.27 Other intervertebral disc di splacement, lumbosacral region M48.061 Spinal stenosis, lumbar junior on without neurogenic carol M79.18 Myalgia, other site Assessments Date Code Description Provider 08/12/2020 M47.817 Spondylosis without myelopathy or radiculopathy, lumbosacral region ARABELLA Garza 08/12/2020 M51.27 Other intervertebral disc displa cement, lumbosacral region ARABELLA Garza 08/12/2020 M51.37 Other intervertebral disc degene ration, lumbosacral region ARABELLA Garza 08/12/2020 M48.061 Spinal stenosis, lum bar region without neurogenic claudication Calvin Gutierrez PA 07/16/2020 M47.817 Spondylosis without myelopathy or radiculopathy, lumbosacral region Nancy Simms, SLOTS MANAGER 07/16/2020 M51.27 Other intervertebral disc displa cement, lumbosacral region Nancy Simms, SLOTS MANAGER 07/16/2020 M51.37 Other intervertebral disc degene ration, lumbosacral region Nancy Simms, SLOTS MANAGER 07/16/2020 M48.061 Spinal stenosis, lum bar region without neurogenic claudication Nancy Simms, SLOTS MANAGER 07/14/2020 M47.817 Spondylosis without myelopathy or radiculopathy, lumbosacral region Nancy Simms, SLOTS MANAGER 07/14/2020 M51.27 Other intervertebral disc displa cement, lumbosacral region Nancy Simms, SLOTS MANAGER 07/14/2020 M51.37 Other intervertebral disc degene ration, lumbosacral region Nancy Simms, SLOTS MANAGER 07/14/2020 M48.061 Spinal stenosis, lum bar region without neurogenic claudication Nancy Simms, SLOTS MANAGER 07/10/2020 M47.817 Spondylosis without myelopathy or radiculopathy, lumbosacral region Danamarie Ortolano, SLOTS MANAGER 07/10/2020 M51.27 Other intervertebral disc displa cement, lumbosacral region Danamarie Ortolano, SLOTS MANAGER 07/10/2020 M51.37 Other intervertebral disc degene ration, lumbosacral region Danamarie Ortolano, SLOTS MANAGER 07/10/2020 M48.061 Spinal stenosis, lum bar region without neurogenic claudication Danamarie Ortolano, SLOTS MANAGER 07/01/2020 M47.817 Spondylosis without myelopathy or radiculopathy, lumbosacral region Calvin Gordon Brenda, PA 07/01/2020 M51.27 Other intervertebral disc displa cement, lumbosacral region Calvin M Brenda, PA 07/01/2020 M79.18 Myalgia, other site Calvin M Tommie mccarty, PA 07/01/2020 M51.37 Other intervertebral disc degene ration, lumbosacral region Calvin M Brenda, PA 07/01/2020 M48.061 Spinal stenosis, lum bar region without neurogenic claudication CalvinARABELLA New 06/19/2020 M48.061 Spinal stenosis, lum bar region without neurogenic claudication Laura Cohen, MSPT 06/19/2020 M51.37 Other intervertebral disc degene ration, lumbosacral region Laura Cohen, MSPT 06/16/2020 M48.061 Spinal stenosis, lum bar region without neurogenic claudication Danamarie Ortolano, SLOTS MANAGER 06/16/2020 M51.37 Other intervertebral disc degene ration, lumbosacral region Danamarie Ortolano, SLOTS MANAGER 06/12/2020 M48.061 Spinal stenosis, lum bar region without neurogenic claudication Danamarie Ortolano, SLOTS MANAGER 06/12/2020 M51.37 Other intervertebral disc degene ration, lumbosacral region Danamarie Ortolano, SLOTS MANAGER 06/10/2020 M48.061 Spinal stenosis, lum bar region without neurogenic claudication Danamarie Ortolano, SLOTS MANAGER 06/10/2020 M51.37 Other intervertebral disc degene ration, lumbosacral region Danamarie Ortolano, SLOTS MANAGER 06/05/2020 M48.061 Spinal stenosis, lum bar region without neurogenic claudication Orquidea Scee P[employer] 06/05/2020 M51.37 Other intervertebral disc degene ration, lumbosacral region Orquidea Scee P[employer]A[facility] 06/02/2020 M48.061 Spinal stenosis, lum bar region without neurogenic claudication Danamarie Ortolano, SLOTS MANAGER 06/02/2020 M51.37 Other intervertebral disc degene ration, lumbosacral region Danamarie Ortolano, SLOTS MANAGER 05/29/2020 M48.061 Spinal stenosis, lum bar region without neurogenic claudication Danamarie Ortolano, SLOTS MANAGER 05/29/2020 M51.37 Other intervertebral disc degene ration, lumbosacral region Danamarie Ortolano, SLOTS MANAGER 05/27/2020 M48.061 Spinal stenosis, lum bar region without neurogenic claudication Laura Cohen, MSPT 05/27/2020 M51.37 Other intervertebral disc degene ration, lumbosacral region Laura Cohen, MSPT 05/12/2020 M47.817 Spondylosis without myelopathy or radiculopathy, lumbosacral region ARABELLA Garza 05/12/2020 M51.37 Other intervertebral disc degene ration, lumbosacral region ARABELLA Garza 05/12/2020 M51.27 Other intervertebral disc displa cement, lumbosacral region ARABELLA Garza 05/12/2020 M48.061 Spinal stenosis, lum bar region without neurogenic claudication ARABELLA Garza 05/12/2020 M79.18 Myalgia, other site ARABELLA Madden Plan of Treatment Future Appointment(s):* 09/16/2020 1:45 pm - AR[place] Garza at [place] 08/12/2020 - ARABELLA Garza* M47.817 Spondylosis without myelopathy or radiculopathy, lumbosacral region* Follow up:* 6 weeks back recheck w/[facility] * M51.27 Other intervertebral disc displacement, lumbosacral region * M51.37 Other intervertebral disc degeneration, lumbosacral region * M48.061 Spinal stenosis, lumbar region without neurogenic claudication Functional Status Description No Information Available Mental Status Description No Information Available Referrals Refer to Dr Reason for Referral Status Appt Date Calvin Gutierrez PA authorization for physical t herapy evaluation [phone] [id number] Lumbar, patient coming here. Passed to PT Dept. AC Created [facility] [place] [address] [phone] Calvin Gutierrez PA authorization for physical t herapy Lumbar Spine. Patient coming here. AC Created [facility] [place] [address] [phone]
--- OUTSIDE RECORDS SUMMARY | 2020-09-03 16:42 | CCD | Continuity of Care Document ---
Author Author Allyson SIMMS [facility] Organization Unknown Address [address] [place] [address] Phone [phone] Care Team Providers Care Advisory Application Developer Name Role Phone Chyna Barry MD AUT [phone] Problems Description No Information Available Social History [...] H/L Range Note CBC With Differential 07/02/2020 [facility] [address] [place] [address] (315)- - White Blood Count 11.1 10 [...] % Normal 0-0 Laboratory test finding 07/02/2020 [facility] [address] [place] [address] (315)- - C Reactive Protein Quantitativ 0.88 mg/dL High 0.00- 0.30 Erythrocyte Sedimentation Rate 11 mm/hr Normal 0-20 Differential 07/02/2020 [facility] [address] [place] [address] (315)- - Neutrophils 56 % Normal 28-66 Lymphocytes 32 % Normal 16-44 Monocytes 9 % High 0-5 Eosinophils 2 % Normal 0-3 Atypical Lymph 1 % Normal 0-5 Laboratory test finding 07/02/2020 [facility] [address] [place] [address] (315)- - Platelet Estimate NORMAL Normal Normal Creatinine With GFR 06/11/2020 [facility] [address] [place] [address] (315)- - Creatinine For GFR 0.95 mg/dL Normal 0.55-1.30 Glomerular Filtration Rate > 60.0 Normal >60 1 Laboratory test finding 06/11/2020 [facility] [address] [place] [address] (315)- - Blood Urea Nitrogen 10 mg/dL Normal 7-18 1 Units are mL/min/1.73 m2 Chronic Kidney Disease Staging per NKF: Stage I & II GFR >=60 Normal to Mildly Decreased Stage III GFR 30-59 Moderately Decreased Stage IV GFR 15-29 Severely Decreased Stage V GFR <15 Very Little GFR Left ESRD GFR <15 on PRINTER REPAIR TECHNICIAN Procedures Date Code Description Status 07/16/2020 39767 Manual Therapy Each 15 Minutes C ompleted 07/16/2020 57098 Therapeutic Procedure, Each 15 M inutes Completed 07/16/2020 91573 Hot Or Cold Packs Completed 07/14/2020 01453 Manual Therapy Each 15 Minutes C ompleted 07/14/2020 53322 Therapeutic Procedure, Each 15 M inutes Completed 07/10/2020 10587 Manual Therapy Each 15 Minutes C ompleted 07/10/2020 97675 Therapeutic Procedure, Each 15 M inutes Completed 06/19/2020 04083 Manual Therapy Each 15 Minutes C ompleted 06/19/2020 00106 Therapeutic Procedure, Each 15 M inutes Completed 06/16/2020 72992 Manual Therapy Each 15 Minutes C ompleted 06/16/2020 63472 Therapeutic Procedure, Each 15 M inutes Completed 06/12/2020 47624 Therapeutic Procedure, Each 15 M inutes Completed 06/12/2020 33436 Manual Therapy Each 15 Minutes C ompleted 06/10/2020 38111 Manual Therapy Each 15 Minutes C ompleted 06/10/2020 17108 Therapeutic Procedure, Each 15 M inutes Completed 06/05/2020 65879 Manual Therapy Each 15 Minutes C ompleted 06/05/2020 51384 Therapeutic Procedure, Each 15 M inutes Completed 06/05/2020 04389 Hot Or Cold Packs Completed 06/02/2020 18300 Manual Therapy Each 15 Minutes C ompleted 06/02/2020 19950 Therapeutic Procedure, Each 15 M inutes Completed 05/29/2020 78471 Manual Therapy Each 15 Minutes C ompleted 05/29/2020 76788 Therapeutic Procedure, Each 15 M inutes Completed 05/29/2020 47784 Hot Or Cold Packs Completed 05/27/2020 38776 Physical Therapy Eval - Mod Comp lexity Completed Medical Devices Description No Information Available Encounters Type Date Location Provider Dx Diagnosis Office Visit 07[place] M47.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, lumbosacr region M51.27 Other intervertebral disc di splacement, lumbosacral region M79.18 Myalgia, other site M51.37 Other intervertebral disc de generation, lumbosacral region M48.061 Spinal stenosis, lumbar junior on without neurogenic carol Office Visit 05/12/2020 10[place] M47.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, lumbosacr region M51.37 Other intervertebral disc de generation, lumbosacral region M51.27 Other intervertebral disc di splacement, lumbosacral region M48.061 Spinal stenosis, lumbar junior on without neurogenic carol M79.18 Myalgia, other site Assessments Date Code Description Provider 07/16/2020 M47.817 Spondylosis without myelopathy or radiculopathy, lumbosacral region Nancy Simms, INSURANCE UNDERWRITING ASSISTANT 07/16/2020 M51.27 Other intervertebral disc displa cement, lumbosacral region Nancy Simms, INSURANCE UNDERWRITING ASSISTANT 07/16/2020 M51.37 Other intervertebral disc degene ration, lumbosacral region Nancy Simms, INSURANCE UNDERWRITING ASSISTANT 07/16/2020 M48.061 Spinal stenosis, lum bar region without neurogenic claudication Nancy Simms, INSURANCE UNDERWRITING ASSISTANT 07/14/2020 M47.817 Spondylosis without myelopathy or radiculopathy, lumbosacral region Nancy Simms, INSURANCE UNDERWRITING ASSISTANT 07/14/2020 M51.27 Other intervertebral disc displa cement, lumbosacral region Nancy Simms, INSURANCE UNDERWRITING ASSISTANT 07/14/2020 M51.37 Other intervertebral disc degene ration, lumbosacral region Nancy Simms, INSURANCE UNDERWRITING ASSISTANT 07/14/2020 M48.061 Spinal stenosis, lum bar region without neurogenic claudication Nancy Simms, INSURANCE UNDERWRITING ASSISTANT 07/10/2020 M47.817 Spondylosis without myelopathy or radiculopathy, lumbosacral region Danamarie Ortolano, INSURANCE UNDERWRITING ASSISTANT 07/10/2020 M51.27 Other intervertebral disc displa cement, lumbosacral region Danamarie Ortolano, INSURANCE UNDERWRITING ASSISTANT 07/10/2020 M51.37 Other intervertebral disc degene ration, lumbosacral region Danamarie Ortolano, INSURANCE UNDERWRITING ASSISTANT 07/10/2020 M48.061 Spinal stenosis, lum bar region without neurogenic claudication Danamarie Ortolano, INSURANCE UNDERWRITING ASSISTANT 07/01/2020 M47.817 Spondylosis without myelopathy or radiculopathy, lumbosacral region Calvin M Brenda, PA 07/01/2020 M51.27 Other intervertebral disc displa cement, lumbosacral region Calvin M Brenda, PA 07/01/2020 M79.18 Myalgia, other site Calvin M Tommie mccarty, PA 07/01/2020 M51.37 Other intervertebral disc degene ration, lumbosacral region Calvin M Brenda, PA 07/01/2020 M48.061 Spinal stenosis, lum bar region without neurogenic claudication Calvin M Brenda, PA 06/19/2020 M48.061 Spinal stenosis, lum bar region without neurogenic claudication Laura EvanIvy Cohen, MSPT 06/19/2020 M51.37 Other intervertebral disc degene ration, lumbosacral region Laura EvanIvy Cohen, MSPT 06/16/2020 M48.061 Spinal stenosis, lum bar region without neurogenic claudication Danamarie Ortolano, INSURANCE UNDERWRITING ASSISTANT 06/16/2020 M51.37 Other intervertebral disc degene ration, lumbosacral region Danamarie Ortolano, INSURANCE UNDERWRITING ASSISTANT 06/12/2020 M48.061 Spinal stenosis, lum bar region without neurogenic claudication Danamarie Ortolano, INSURANCE UNDERWRITING ASSISTANT 06/12/2020 M51.37 Other intervertebral disc degene ration, lumbosacral region Danamarie Ortolano, INSURANCE UNDERWRITING ASSISTANT 06/10/2020 M48.061 Spinal stenosis, lum bar region without neurogenic claudication Danamarie Ortolano, INSURANCE UNDERWRITING ASSISTANT 06/10/2020 M51.37 Other intervertebral disc degene ration, lumbosacral region Danamarie Ortolano, INSURANCE UNDERWRITING ASSISTANT 06/05/2020 M48.061 Spinal stenosis, lum bar region without neurogenic claudication [facility] 06/05/2020 M51.37 Other intervertebral disc degene ration, lumbosacral region [facility] 06/02/2020 M48.061 Spinal stenosis, lum bar region without neurogenic claudication Danamarie Ortolano, INSURANCE UNDERWRITING ASSISTANT 06/02/2020 M51.37 Other intervertebral disc degene ration, lumbosacral region Danamarie Ortolano, INSURANCE UNDERWRITING ASSISTANT 05/29/2020 M48.061 Spinal stenosis, lum bar region without neurogenic claudication Danamarie Ortolano, INSURANCE UNDERWRITING ASSISTANT 05/29/2020 M51.37 Other intervertebral disc degene ration, lumbosacral region Danamarie Ortolano, INSURANCE UNDERWRITING ASSISTANT 05/27/2020 M48.061 Spinal stenosis, lum bar region [...] ARABELLA Madden Plan of Treatment Future Appointment(s):* 07/21/2020 1:00 pm - [facility] at Physical Therapy * 08/12/2020 1:30 pm - ARABELLA Garza at [place] Functional Status Description No Information Available Mental Status Description No Information Available Referrals Refer to Reason for Referral Status Appt Date Calvin Gutierrez PA authorization for physical t herapy evaluation [phone] [phone] [id number] Lumbar, patient coming here. Passed to PT Dept. Created [facility] [place] [phone] Calvin Gutierrez PA authorization for physical t herapy Lumbar Spine. Patient coming here. Created [address] [place] [address] [phone]
--- OUTSIDE RECORDS SUMMARY | 2020-09-03 16:42 | CCD | Continuity of Care Document ---
Author Author Allyson SIMMS [facility] Organization Unknown Address [address] [place] [id number] Phone [phone] Care Team Providers Care Director Of Search Engine Optimization Name Role Phone Chyna Barry MD AUT [phone] Problems Description No Information Available Social History [...] H/L Range Note CBC With Differential 07/02/2020 [facility] [address] [place] [address] (315)- - White Blood Count 11.1 10 [...] % Normal 0-0 Laboratory test finding 07/02/2020 [facility] [address] [place] [address] (315)- - C Reactive Protein Quantitativ 0.88 mg/dL High 0.00- 0.30 Erythrocyte Sedimentation Rate 11 mm/hr Normal 0-20 Differential 07/02/2020 [facility] [address] [place] [address] (315)- - Neutrophils 56 % Normal 28-66 Lymphocytes 32 % Normal 16-44 Monocytes 9 % High 0-5 Eosinophils 2 % Normal 0-3 Atypical Lymph 1 % Normal 0-5 Laboratory test finding 07/02/2020 [facility] [address] [place] [address] (315)- - Platelet Estimate NORMAL Normal Normal Creatinine With GFR 06/11/2020 [facility] [address] [place] [address] (315)- - Creatinine For GFR 0.95 mg/dL Normal 0.55-1.30 Glomerular Filtration Rate > 60.0 Normal >60 1 Laboratory test finding 06/11/2020 [facility] [address] [place] [address] (315)- - Blood Urea Nitrogen 10 mg/dL Normal 7-18 1 Units are mL/min/1.73 m2 Chronic Kidney Disease Staging per NKF: Stage I & II GFR >=60 Normal to Mildly Decreased Stage III GFR 30-59 Moderately Decreased Stage IV GFR 15-29 Severely Decreased Stage V GFR <15 Very Little GFR Left ESRD GFR <15 on FAMILY RESOURCE COORDINATOR Procedures Date Code Description Status 07/16/2020 17582 Manual Therapy Each 15 Minutes C ompleted 07/16/2020 76601 Therapeutic Procedure, Each 15 M inutes Completed 07/16/2020 84392 Hot Or Cold Packs Completed 07/14/2020 84564 Manual Therapy Each 15 Minutes C ompleted 07/14/2020 81469 Therapeutic Procedure, Each 15 M inutes Completed 07/10/2020 98879 Manual Therapy Each 15 Minutes C ompleted 07/10/2020 13023 Therapeutic Procedure, Each 15 M inutes Completed 06/19/2020 43051 Manual Therapy Each 15 Minutes C ompleted 06/19/2020 34627 Therapeutic Procedure, Each 15 M inutes Completed 06/16/2020 66203 Manual Therapy Each 15 Minutes C ompleted 06/16/2020 92447 Therapeutic Procedure, Each 15 M inutes Completed 06/12/2020 27093 Therapeutic Procedure, Each 15 M inutes Completed 06/12/2020 36065 Manual Therapy Each 15 Minutes C ompleted 06/10/2020 59864 Manual Therapy Each 15 Minutes C ompleted 06/10/2020 05618 Therapeutic Procedure, Each 15 M inutes Completed 06/05/2020 23409 Manual Therapy Each 15 Minutes C ompleted 06/05/2020 80827 Therapeutic Procedure, Each 15 M inutes Completed 06/05/2020 55329 Hot Or Cold Packs Completed 06/02/2020 38486 Manual Therapy Each 15 Minutes C ompleted 06/02/2020 57301 Therapeutic Procedure, Each 15 M inutes Completed 05/29/2020 59451 Manual Therapy Each 15 Minutes C ompleted 05/29/2020 90041 Therapeutic Procedure, Each 15 M inutes Completed 05/29/2020 33231 Hot Or Cold Packs Completed 05/27/2020 22456 Physical Therapy Eval - Mod Comp lexity Completed Medical Devices Description No Information Available Encounters Type Date Location Provider Dx Diagnosis Office Visit 07/01/2020 3:[place] M47.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, lumbosacr region M51.27 Other intervertebral disc di splacement, lumbosacral region M79.18 Myalgia, other site M51.37 Other intervertebral disc de generation, lumbosacral region M48.061 Spinal stenosis, lumbar junior on without neurogenic carol Office Visit 05/12/2020 10:00a [place] M47.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, lumbosacr region M51.37 Other intervertebral disc de generation, lumbosacral region M51.27 Other intervertebral disc di splacement, lumbosacral region M48.061 Spinal stenosis, lumbar junior on without neurogenic carol M79.18 Myalgia, other site Assessments Date Code Description Provider 07/16/2020 M47.817 Spondylosis without myelopathy or radiculopathy, lumbosacral region Nancy Simms, BENEFITS ADVISOR 07/16/2020 M51.27 Other intervertebral disc displa cement, lumbosacral region Nancy Simms, BENEFITS ADVISOR 07/16/2020 M51.37 Other intervertebral disc degene ration, lumbosacral region Nancy Simms, BENEFITS ADVISOR 07/16/2020 M48.061 Spinal stenosis, lum bar region without neurogenic claudication Nancy Simms, BENEFITS ADVISOR 07/14/2020 M47.817 Spondylosis without myelopathy or radiculopathy, lumbosacral region Nancy Simms, BENEFITS ADVISOR 07/14/2020 M51.27 Other intervertebral disc displa cement, lumbosacral region Nancy Simms, BENEFITS ADVISOR 07/14/2020 M51.37 Other intervertebral disc degene ration, lumbosacral region Nancy Simms, BENEFITS ADVISOR 07/14/2020 M48.061 Spinal stenosis, lum bar region without neurogenic claudication Nancy Simms, BENEFITS ADVISOR 07/10/2020 M47.817 Spondylosis without myelopathy or radiculopathy, lumbosacral region Danamarie Ortolano, BENEFITS ADVISOR 07/10/2020 M51.27 Other intervertebral disc displa cement, lumbosacral region Danamarie Ortolano, BENEFITS ADVISOR 07/10/2020 M51.37 Other intervertebral disc degene ration, lumbosacral region Danamarie Ortolano, BENEFITS ADVISOR 07/10/2020 M48.061 Spinal stenosis, lum bar region without neurogenic claudication Danamarie Ortolano, BENEFITS ADVISOR 07/01/2020 M47.817 Spondylosis without myelopathy or radiculopathy, [...] bar region without neurogenic claudication Danamarie Ortolano, BENEFITS ADVISOR 06/16/2020 M51.37 Other intervertebral disc degene ration, lumbosacral region Danamarie Ortolano, BENEFITS ADVISOR 06/12/2020 M48.061 Spinal stenosis, lum bar region without neurogenic claudication Danamarie Ortolano, BENEFITS ADVISOR 06/12/2020 M51.37 Other intervertebral disc degene ration, lumbosacral region Danamarie Ortolano, BENEFITS ADVISOR 06/10/2020 M48.061 Spinal stenosis, lum bar region without neurogenic claudication Danamarie Ortolano, BENEFITS ADVISOR 06/10/2020 M51.37 Other intervertebral disc degene ration, lumbosacral region Danamarie Ortolano, BENEFITS ADVISOR 06/05/2020 M48.061 Spinal stenosis, lum bar region without neurogenic claudication [facility] 06/05/2020 M51.37 Other intervertebral disc degene ration, lumbosacral region [facility] 06/02/2020 M48.061 Spinal stenosis, lum bar region without neurogenic claudication Danamarie Ortolano, BENEFITS ADVISOR 06/02/2020 M51.37 Other intervertebral disc degene ration, lumbosacral region Danamarie Ortolano, BENEFITS ADVISOR 05/29/2020 M48.061 Spinal stenosis, lum bar region without neurogenic claudication Danamarie Ortolano, BENEFITS ADVISOR 05/29/2020 M51.37 Other intervertebral disc degene ration, lumbosacral region Danamarie Ortolano, BENEFITS ADVISOR 05/27/2020 M48.061 Spinal stenosis, lum bar region [...] 08/12/2020 1:30 pm - ARABELLA Garza at [place] Functional Status Description No Information Available Mental Status Description No Information Available Referrals Refer to Reason for Referral Status Appt Date Calvin Gutierrez PA authorization for physical t herapy evaluation [phone] [id number] [id number] Lumbar, patient coming here. Passed to PT Dept. Created [facility] [place] [phone] Calvin Gutierrez PA authorization for physical t herapy Lumbar Spine. Patient coming here. Created [address] [place] [address] [phone]
--- OUTSIDE RECORDS SUMMARY | 2020-09-03 16:42 | CCD | Continuity of Care Document ---
Author Author Allyson ODOM [facility] Organization Unknown Address [address] [place] [address] Phone [phone] Care Team Providers Care Web Analytics Specialist Name Role Phone Chyna Barry MD AUT [phone] Problems Description No Information Available Social History [...] H/L Range Note CBC With Differential 07/02/2020 [facility] [address] [place] [address] (315)- - White Blood Count 11.1 10 [...] % Normal 0-0 Laboratory test finding 07/02/2020 [facility] [address] [place] [address] (315)- - C Reactive Protein Quantitativ 0.88 mg/dL High 0.00- 0.30 Erythrocyte Sedimentation Rate 11 mm/hr Normal 0-20 Differential 07/02/2020 [facility] n[facility] [address] [place] [address] (315)- - Neutrophils 56 % Normal 28-66 Lymphocytes 32 % Normal 16-44 Monocytes 9 % High 0-5 Eosinophils 2 % Normal 0-3 Atypical Lymph 1 % Normal 0-5 Laboratory test finding 07/02/2020 [facility] [address] [place] [address] (315)- - Platelet Estimate NORMAL Normal Normal Creatinine With GFR 06/11/2020 [facility] [address] [place] [address] (315)- - Creatinine For GFR 0.95 mg/dL Normal 0.55-1.30 Glomerular Filtration Rate > 60.0 Normal >60 1 Laboratory test finding 06/11/2020 [facility] [address] [place] [address] (315)- - Blood Urea Nitrogen 10 mg/dL Normal 7-18 1 Units are mL/min/1.73 m2 Chronic Kidney Disease Staging per NKF: Stage I & II GFR >=60 Normal to Mildly Decreased Stage III GFR 30-59 Moderately Decreased Stage IV GFR 15-29 Severely Decreased Stage V GFR <15 Very Little GFR Left ESRD GFR <15 on SPECIAL EDUCATION SUPERVISOR Procedures Date Code Description Status 07/16/2020 94023 Manual Therapy Each 15 Minutes C ompleted 07/16/2020 78004 Therapeutic Procedure, Each 15 M inutes Completed 07/16/2020 51598 Hot Or Cold Packs Completed 07/14/2020 46162 Manual Therapy Each 15 Minutes C ompleted 07/14/2020 66007 Therapeutic Procedure, Each 15 M inutes Completed 07/10/2020 45162 Manual Therapy Each 15 Minutes C ompleted 07/10/2020 45138 Therapeutic Procedure, Each 15 M inutes Completed 06/19/2020 64572 Manual Therapy Each 15 Minutes C ompleted 06/19/2020 28538 Therapeutic Procedure, Each 15 M inutes Completed 06/16/2020 47923 Manual Therapy Each 15 Minutes C ompleted 06/16/2020 00627 Therapeutic Procedure, Each 15 M inutes Completed 06/12/2020 21140 Therapeutic Procedure, Each 15 M inutes Completed 06/12/2020 78940 Manual Therapy Each 15 Minutes C ompleted 06/10/2020 94897 Manual Therapy Each 15 Minutes C ompleted 06/10/2020 01318 Therapeutic Procedure, Each 15 M inutes Completed 06/05/2020 93672 Manual Therapy Each 15 Minutes C ompleted 06/05/2020 03713 Therapeutic Procedure, Each 15 M inutes Completed 06/05/2020 83329 Hot Or Cold Packs Completed 06/02/2020 19442 Manual Therapy Each 15 Minutes C ompleted 06/02/2020 39723 Therapeutic Procedure, Each 15 M inutes Completed 05/29/2020 74354 Manual Therapy Each 15 Minutes C ompleted 05/29/2020 04664 Therapeutic Procedure, Each 15 M inutes Completed 05/29/2020 26685 Hot Or Cold Packs Completed 05/27/2020 84563 Physical Therapy Eval - Mod Comp lexity Completed Medical Devices Description No Information Available Encounters Type Date Location Provider Dx Diagnosis Office Visit 07/01/2020 3[place] M47.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, lumbosacr region M51.27 Other intervertebral disc di splacement, lumbosacral region M79.18 Myalgia, other site M51.37 Other intervertebral disc de generation, lumbosacral region M48.061 Spinal stenosis, lumbar junior on without neurogenic carol Office Visit 05/12/2020 10:[place]a [place] M47.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, lumbosacr region M51.37 Other intervertebral disc de generation, lumbosacral region M51.27 Other intervertebral disc di splacement, lumbosacral region M48.061 Spinal stenosis, lumbar junior on without neurogenic carol M79.18 Myalgia, other site Assessments Date Code Description Provider 07/16/2020 M47.817 Spondylosis without myelopathy or radiculopathy, lumbosacral region Nancy Simms, SALES SERVICE SUPERVISOR 07/16/2020 M51.27 Other intervertebral disc displa cement, lumbosacral region Nancy Simms, SALES SERVICE SUPERVISOR 07/16/2020 M51.37 Other intervertebral disc degene ration, lumbosacral region Nancy Simms, SALES SERVICE SUPERVISOR 07/16/2020 M48.061 Spinal stenosis, lum bar region without neurogenic claudication Nancy Simms, SALES SERVICE SUPERVISOR 07/14/2020 M47.817 Spondylosis without myelopathy or radiculopathy, lumbosacral region Nancy Simms, SALES SERVICE SUPERVISOR 07/14/2020 M51.27 Other intervertebral disc displa cement, lumbosacral region Nancy Simms, SALES SERVICE SUPERVISOR 07/14/2020 M51.37 Other intervertebral disc degene ration, lumbosacral region Nancy Simms, SALES SERVICE SUPERVISOR 07/14/2020 M48.061 Spinal stenosis, lum bar region without neurogenic claudication Nancy Simms, SALES SERVICE SUPERVISOR 07/10/2020 M47.817 Spondylosis without myelopathy or radiculopathy, lumbosacral region Danamarie Ortolano, SALES SERVICE SUPERVISOR 07/10/2020 M51.27 Other intervertebral disc displa cement, lumbosacral region Danamarie Ortolano, SALES SERVICE SUPERVISOR 07/10/2020 M51.37 Other intervertebral disc degene ration, lumbosacral region Danamarie Ortolano, SALES SERVICE SUPERVISOR 07/10/2020 M48.061 Spinal stenosis, lum bar region without neurogenic claudication Danamarie Ortolano, SALES SERVICE SUPERVISOR 07/01/2020 M47.817 Spondylosis without myelopathy or radiculopathy, [...] Other intervertebral disc degene ration, lumbosacral region Luara EvanIvy Cohen, MSPT 06/16/2020 M48.061 Spinal stenosis, lum bar region without neurogenic claudication Danamarie Ortolano, SALES SERVICE SUPERVISOR 06/16/2020 M51.37 Other intervertebral disc degene ration, lumbosacral region Danamarie Ortolano, SALES SERVICE SUPERVISOR 06/12/2020 M48.061 Spinal stenosis, lum bar region without neurogenic claudication Danamarie Ortolano, SALES SERVICE SUPERVISOR 06/12/2020 M51.37 Other intervertebral disc degene ration, lumbosacral region Danamarie Ortolano, SALES SERVICE SUPERVISOR 06/10/2020 M48.061 Spinal stenosis, lum bar region without neurogenic claudication Danamarie Ortolano, SALES SERVICE SUPERVISOR 06/10/2020 M51.37 Other intervertebral disc degene ration, lumbosacral region Danamarie Ortolano, SALES SERVICE SUPERVISOR 06/05/2020 M48.061 Spinal stenosis, lum bar region without neurogenic claudication [facility] 06/05/2020 M51.37 Other intervertebral disc degene ration, lumbosacral region Orquidea Scee P.T.A. 06/02/2020 M48.061 Spinal stenosis, lum bar region without neurogenic claudication Danamarie Ortolano, SALES SERVICE SUPERVISOR 06/02/2020 M51.37 Other intervertebral disc degene ration, lumbosacral region Danamarie Ortolano, SALES SERVICE SUPERVISOR 05/29/2020 M48.061 Spinal stenosis, lum bar region without neurogenic claudication Danamarie Ortolano, SALES SERVICE SUPERVISOR 05/29/2020 M51.37 Other intervertebral disc degene ration, lumbosacral region Danamarie Ortolano, SALES SERVICE SUPERVISOR 05/27/2020 M48.061 Spinal stenosis, lum bar region [...] Appointment(s):* 07/21/2020 1:00 pm - Orquidea Patel P.T.AI[facility] at Physical Therapy * 08/12/2020 1:30 pm - ARABELLA Garza at [place] Functional Status Description No Information Available Mental Status Description No Information Available Referrals Refer to Dr Reason for Referral Status Appt Date Calvin Gutierrez PA authorization for physical t herapy evaluation [id number] Lumbar, patient coming here. Passed to PT Dept. Created [facility] [place] [id number] [phone] Calvin Gutierrez PA authorization for physical t herapy Lumbar Spine. Patient coming here. Created [facility] [address] [address] [phone]
--- OUTSIDE RECORDS SUMMARY | 2020-09-03 16:42 | CCD | Continuity of Care Document ---
Author Author Allyson GUTIERREZ PA Organization Unknown Address [address] [place] [address] Phone [phone] Care Team Providers Care Translator/Interpreter Name Role Phone Chyna Barry MD AUTM [phone] Problems Description No Information Available Social History [...] H/L Range Note CBC With Differential 07/02/2020 [facility] [address] [place] [address] (315)- - White Blood Count 11.1 10 [...] % Normal 0-0 Laboratory test finding 07/02/2020 [facility] [address] [place] [address] (315)- - C Reactive Protein Quantitativ 0.88 mg/dL High 0.00- 0.30 Erythrocyte Sedimentation Rate 11 mm/hr Normal 0-20 Differential 07/02/2020 [facility] ntr [address] [place] [address] (315)- - Neutrophils 56 % Normal 28-66 Lymphocytes 32 % Normal 16-44 Monocytes 9 % High 0-5 Eosinophils 2 % Normal 0-3 Atypical Lymph 1 % Normal 0-5 Laboratory test finding 07/02/2020 [facility] [address] [place] [address] (315)- - Platelet Estimate NORMAL Normal Normal Creatinine With GFR 06/11/2020 [facility] [address] [place] [address] (315)- - Creatinine For GFR 0.95 mg/dL Normal 0.55-1.30 Glomerular Filtration Rate > 60.0 Normal >60 1 Laboratory test finding 06/11/2020 [facility] [address] [place] [address] (315)- - Blood Urea Nitrogen 10 mg/dL Normal 7-18 1 Units are mL/min/1.73 m2 Chronic Kidney Disease Staging per NKF: Stage I & II GFR >=60 Normal to Mildly Decreased Stage III GFR 30-59 Moderately Decreased Stage IV GFR 15-29 Severely Decreased Stage V GFR <15 Very Little GFR Left ESRD GFR <15 on LAP RUNNER Procedures Date Code Description Status 06/19/2020 00320 Manual Therapy Each 15 Minutes C ompleted 06/19/2020 41839 Therapeutic Procedure, Each 15 M inutes Completed 06/16/2020 46119 Manual Therapy Each 15 Minutes C ompleted 06/16/2020 61912 Therapeutic Procedure, Each 15 M inutes Completed 06/12/2020 93404 Manual Therapy Each 15 Minutes C ompleted 06/12/2020 08347 Therapeutic Procedure, Each 15 M inutes Completed 06/10/2020 82476 Manual Therapy Each 15 Minutes C ompleted 06/10/2020 65763 Therapeutic Procedure, Each 15 M inutes Completed 06/05/2020 19239 Hot Or Cold Packs Completed 06/05/2020 48163 Therapeutic Procedure, Each 15 M inutes Completed 06/05/2020 45985 Manual Therapy Each 15 Minutes C ompleted 06/02/2020 85528 Manual Therapy Each 15 Minutes C ompleted 06/02/2020 91006 Therapeutic Procedure, Each 15 M inutes Completed 05/29/2020 32240 Manual Therapy Each 15 Minutes C ompleted 05/29/2020 84468 Therapeutic Procedure, Each 15 M inutes Completed 05/29/2020 52261 Hot Or Cold Packs Completed 05/27/2020 63126 Physical Therapy Eval - Mod Comp lexity Completed Medical Devices Description No Information Available Encounters Type Date Location Provider Dx Diagnosis Office Visit 07/01/2020 3:30p [place] M47.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, lumbosacr region M51.27 Other intervertebral disc di splacement, lumbosacral region M79.18 Myalgia, other site M51.37 Other intervertebral disc de generation, lumbosacral region M48.061 Spinal stenosis, lumbar junior on without neurogenic carol Office Visit 05/12/2020 10:00a [place] ARABELLA Garza M47.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, lumbosacr region M51.37 Other intervertebral disc de generation, lumbosacral region M51.27 Other intervertebral disc di splacement, lumbosacral region M48.061 Spinal stenosis, lumbar junior on without neurogenic carol M79.18 Myalgia, other site Assessments Date Code Description Provider 07/01/2020 M47.817 Spondylosis without myelopathy or radiculopathy, lumbosacral region ARABELLA Garza 07/01/2020 M51.27 Other intervertebral disc displa cement, lumbosacral region ARABELLA Garza 07/01/2020 M79.18 Myalgia, other site ARABELLA Madden 07/01/2020 M51.37 Other intervertebral disc degene ration, lumbosacral region ARABELLA Garza 07/01/2020 M48.061 Spinal stenosis, lum bar region without neurogenic claudication ARABELLA Garza 06/19/2020 M48.061 Spinal stenosis, lum bar region without neurogenic claudication Laura oChen, MSPT 06/19/2020 M51.37 Other intervertebral disc degene ration, lumbosacral region Laura Cohen, MSPT 06/16/2020 M48.061 Spinal stenosis, lum bar region without neurogenic claudication Danamarie Ortolano, GRINDER OPERATOR 06/16/2020 M51.37 Other intervertebral disc degene ration, lumbosacral region Danamarie Ortolano, GRINDER OPERATOR 06/12/2020 M48.061 Spinal stenosis, lum bar region without neurogenic claudication Danamarie Ortolano, GRINDER OPERATOR 06/12/2020 M51.37 Other intervertebral disc degene ration, lumbosacral region Danamarie Ortolano, GRINDER OPERATOR 06/10/2020 M48.061 Spinal stenosis, lum bar region without neurogenic claudication Danamarie Ortolano, GRINDER OPERATOR 06/10/2020 M51.37 Other intervertebral disc degene ration, lumbosacral region Danamarie Ortolano, GRINDER OPERATOR 06/05/2020 M48.061 Spinal stenosis, lum bar region without neurogenic claudication Orquidea Scee P.T.A[facility] 06/05/2020 M51.37 Other intervertebral disc degene ration, lumbosacral region Orquidae Scee P.T.A[facility] 06/02/2020 M48.061 Spinal stenosis, lum bar region without neurogenic claudication Danamarie Ortolano, GRINDER OPERATOR 06/02/2020 M51.37 Other intervertebral disc degene ration, lumbosacral region Danamarie Ortolano, GRINDER OPERATOR 05/29/2020 M48.061 Spinal stenosis, lum bar region without neurogenic claudication Danamarie Ortolano, GRINDER OPERATOR 05/29/2020 M51.37 Other intervertebral disc degene ration, lumbosacral region Danamarie Ortolano, GRINDER OPERATOR 05/27/2020 M48.061 Spinal stenosis, lum bar region [...] ARABELLA Madden Plan of Treatment Future Appointment(s):* 08/12/2020 1:30 pm - ARABELLA Garza at [place] 07/01/2020 - ARABELLA Garza* M47.817 Spondylosis without myelopathy or radiculopathy, lumbosacral region* Follow up:* 6 weeks back recheck with [facility] (subject to change) * M51.27 Other intervertebral disc displacement, lumbosacral region * M79.18 Myalgia, other site * M51.37 Other intervertebral disc degeneration, lumbosacral region * M48.061 Spinal stenosis, lumbar region without neurogenic claudication Functional Status Description No Information Available Mental Status Description No Information Available Referrals Refer to Dr Reason for Referral Status Appt Date Calvin Gutierrez PA authorization for physical t herapy evaluation [id number] [phone] [id number] Lumbar, patient coming here. Passed to PT Dept. Created [facility] [place] [id number] [phone] Calvin Gutierrez PA authorization for physical t herapy Lumbar Spine. Patient coming here. Created [facility] [place] [id number] [phone]
--- OUTSIDE RECORDS SUMMARY | 2020-09-03 16:42 | CCD | Continuity of Care Document ---
Author Author Allyson GUTIERREZ PA Organization Unknown Address [address] [place] [address] Phone [phone] Care Team Providers Care Rn Supplemental Name Role Phone Chyna Barry MD AUTM [phone] Problems Description No Information Available Social History [...] H/L Range Note CBC With Differential 07/02/2020 [facility] [address] [place] [address] (315)- - White Blood Count 11.1 10 [...] % Normal 0-0 Laboratory test finding 07/02/2020 [facility] [address] [place] [address] (315)- - C Reactive Protein Quantitativ 0.88 mg/dL High 0.00- 0.30 Erythrocyte Sedimentation Rate 11 mm/hr Normal 0-20 Differential 07/02/2020 [facility] n[facility] [address] [place] [address] (315)- - Neutrophils 56 % Normal 28-66 Lymphocytes 32 % Normal 16-44 Monocytes 9 % High 0-5 Eosinophils 2 % Normal 0-3 Atypical Lymph 1 % Normal 0-5 Laboratory test finding 07/02/2020 [facility] [address] [place] [address] (315)- - Platelet Estimate NORMAL Normal Normal Creatinine With GFR 06/11/2020 [facility] [address] [place] [address] (315)- - Creatinine For GFR 0.95 mg/dL Normal 0.55-1.30 Glomerular Filtration Rate > 60.0 Normal >60 1 Laboratory test finding 06/11/2020 [facility] [address] [place] [address] (315)- - Blood Urea Nitrogen 10 mg/dL Normal 7-18 1 Units are mL/min/1.73 m2 Chronic Kidney Disease Staging per NKF: Stage I & II GFR >=60 Normal to Mildly Decreased Stage III GFR 30-59 Moderately Decreased Stage IV GFR 15-29 Severely Decreased Stage V GFR <15 Very Little GFR Left ESRD GFR <15 on MAINTENANCE GROUNDSKEEPER Procedures Date Code Description Status 06/19/2020 42879 Manual Therapy Each 15 Minutes C ompleted 06/19/2020 02589 Therapeutic Procedure, Each 15 M inutes Completed 06/16/2020 25479 Manual Therapy Each 15 Minutes C ompleted 06/16/2020 21882 Therapeutic Procedure, Each 15 M inutes Completed 06/12/2020 09410 Manual Therapy Each 15 Minutes C ompleted 06/12/2020 74268 Therapeutic Procedure, Each 15 M inutes Completed 06/10/2020 32002 Manual Therapy Each 15 Minutes C ompleted 06/10/2020 40940 Therapeutic Procedure, Each 15 M inutes Completed 06/05/2020 55357 Hot Or Cold Packs Completed 06/05/2020 41259 Therapeutic Procedure, Each 15 M inutes Completed 06/05/2020 17058 Manual Therapy Each 15 Minutes C ompleted 06/02/2020 77233 Manual Therapy Each 15 Minutes C ompleted 06/02/2020 98121 Therapeutic Procedure, Each 15 M inutes Completed 05/29/2020 16563 Manual Therapy Each 15 Minutes C ompleted 05/29/2020 13336 Therapeutic Procedure, Each 15 M inutes Completed 05/29/2020 86623 Hot Or Cold Packs Completed 05/27/2020 75676 Physical Therapy Eval - Mod Comp lexity Completed Medical Devices Description No Information Available Encounters Type Date Location Provider Dx Diagnosis Office Visit 07/01/2020 3:30p [place] M47.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, lumbosacr region M51.27 Other intervertebral disc di splacement, lumbosacral region M79.18 Myalgia, other site M51.37 Other intervertebral disc de generation, lumbosacral region M48.061 Spinal stenosis, lumbar junior on without neurogenic carol Office Visit 05/12/2020 10:00a [place] ARABELLA Garza M47.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 w/o myelopathy or [...] bar region without neurogenic claudication Danamarie Ortolano, DURALUMIN METALWORKER 06/16/2020 M51.37 Other intervertebral disc degene ration, lumbosacral region Danamarie Ortolano, DURALUMIN METALWORKER 06/12/2020 M48.061 Spinal stenosis, lum bar region without neurogenic claudication Danamarie Ortolano, DURALUMIN METALWORKER 06/12/2020 M51.37 Other intervertebral disc degene ration, lumbosacral region Danamarie Ortolano, DURALUMIN METALWORKER 06/10/2020 M48.061 Spinal stenosis, lum bar region without neurogenic claudication Danamarie Ortolano, DURALUMIN METALWORKER 06/10/2020 M51.37 Other intervertebral disc degene ration, lumbosacral region Danamarie Ortolano, DURALUMIN METALWORKER 06/05/2020 M48.061 Spinal stenosis, lum bar region without neurogenic claudication Orquidea Scee P.T.A[facility] 06/05/2020 M51.37 Other intervertebral disc degene ration, lumbosacral region Orquidea Scee P.T.A. 06/02/2020 M48.061 Spinal stenosis, lum bar region without neurogenic claudication Danamarie Ortolano, DURALUMIN METALWORKER 06/02/2020 M51.37 Other intervertebral disc degene ration, lumbosacral region Danamarie Ortolano, DURALUMIN METALWORKER 05/29/2020 M48.061 Spinal stenosis, lum bar region without neurogenic claudication Danamarie Ortolano, DURALUMIN METALWORKER 05/29/2020 M51.37 Other intervertebral disc degene ration, lumbosacral region Danamarie Ortolano, DURALUMIN METALWORKER 05/27/2020 M48.061 Spinal stenosis, lum bar region [...] ARABELLA Garza 05/12/2020 M79.18 Myalgia, other site Calvin mccarty PA Plan of Treatment Future Appointment(s):* 08/12/2020 1:30 pm - ARABELLA Garza at [place] * 07/06/2020 10:00 am - Jaci Maciel PTA at Physical Therapy 07/01/2020 - ARABELLA Garza* M47.817 Spondylosis without myelopathy or radiculopathy, lumbosacral region* Follow up:* 6 weeks back recheck with [facility] (subject to change) * M51.27 Other [...] PA authorization for physical t herapy evaluation [id number] Lumbar, patient coming here. Passed to PT Dept. AC Created [facility] [place] [address] [phone] Calvin Gutierrez PA authorization for physical t herapy Lumbar Spine. Patient coming here. AC Created [address] [place] [address] [phone]
--- OUTSIDE RECORDS SUMMARY | 2020-09-03 16:42 | CCD | Continuity of Care Document ---
Author Author Allyson GUTIERREZ PA Organization Unknown Address [address] [place] [address] Phone [phone] Care Team Providers Care Physical Therapy Professor Name Role Phone Chyna Barry MD [facility] [phone] Problems Description No Information Available Social History [...] H/L Range Note CBC With Differential 07/02/2020 [facility] [address] [place] [address] (315)- - White Blood Count 11.1 10 [...] % Normal 0-0 Laboratory test finding 07/02/2020 [facility] [address] [place] [address] (315)- - C Reactive Protein Quantitativ 0.88 mg/dL High 0.00- 0.30 Erythrocyte Sedimentation Rate 11 mm/hr Normal 0-20 Differential 07/02/2020 [facility] ntr [address] [place] [address] (315)- - Neutrophils 56 % Normal 28-66 Lymphocytes 32 % Normal 16-44 Monocytes 9 % High 0-5 Eosinophils 2 % Normal 0-3 Atypical Lymph 1 % Normal 0-5 Laboratory test finding 07/02/2020 [facility] [address] [place] [address] (315)- - Platelet Estimate NORMAL Normal Normal Creatinine With GFR 06/11/2020 [facility] [address] [place] [address] (315)- - Creatinine For GFR 0.95 mg/dL Normal 0.55-1.30 Glomerular Filtration Rate > 60.0 Normal >60 1 Laboratory test finding 06/11/2020 [facility] [address] [place] [address] (315)- - Blood Urea Nitrogen 10 mg/dL Normal 7-18 1 Units are mL/min/1.73 m2 Chronic Kidney Disease Staging per NKF: Stage I & II GFR >=60 Normal to Mildly Decreased Stage III GFR 30-59 Moderately Decreased Stage IV GFR 15-29 Severely Decreased Stage V GFR <15 Very Little GFR Left ESRD GFR <15 on CHEMICAL OPERATIONS AND TRAINING Procedures Date Code Description Status 07/16/2020 28791 Manual Therapy Each 15 Minutes C ompleted 07/16/2020 09259 Therapeutic Procedure, Each 15 M inutes Completed 07/16/2020 33536 Hot Or Cold Packs Completed 07/14/2020 08663 Manual Therapy Each 15 Minutes C ompleted 07/14/2020 71923 Therapeutic Procedure, Each 15 M inutes Completed 07/10/2020 77717 Manual Therapy Each 15 Minutes C ompleted 07/10/2020 73561 Therapeutic Procedure, Each 15 M inutes Completed 06/19/2020 01371 Manual Therapy Each 15 Minutes C ompleted 06/19/2020 70683 Therapeutic Procedure, Each 15 M inutes Completed 06/16/2020 13099 Manual Therapy Each 15 Minutes C ompleted 06/16/2020 34156 Therapeutic Procedure, Each 15 M inutes Completed 06/12/2020 78993 Therapeutic Procedure, Each 15 M inutes Completed 06/12/2020 28615 Manual Therapy Each 15 Minutes C ompleted 06/10/2020 68301 Manual Therapy Each 15 Minutes C ompleted 06/10/2020 68865 Therapeutic Procedure, Each 15 M inutes Completed 06/05/2020 45527 Manual Therapy Each 15 Minutes C ompleted 06/05/2020 12905 Therapeutic Procedure, Each 15 M inutes Completed 06/05/2020 78560 Hot Or Cold Packs Completed 06/02/2020 95653 Manual Therapy Each 15 Minutes C ompleted 06/02/2020 82572 Therapeutic Procedure, Each 15 M inutes Completed 05/29/2020 41686 Manual Therapy Each 15 Minutes C ompleted 05/29/2020 06976 Therapeutic Procedure, Each 15 M inutes Completed 05/29/2020 44872 Hot Or Cold Packs Completed 05/27/2020 11449 Physical Therapy Eval - Mod Comp lexity Completed Medical Devices Description No Information Available Encounters Type Date Location Provider Dx Diagnosis Office Visit 08/12/2020 1:30p [place] M47.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, [...] myelopathy or radiculopathy, lumbosacral region Nancy Simms, [employer]PER[employer]OR [employer] 07/16/2020 M51.27 Other intervertebral disc displa cement, lumbosacral region Nancy Simms, SUPERVISOR [employer] 07/16/2020 M51.37 Other intervertebral disc degene ration, lumbosacral region Nancy Simms, SUPERVISOR [employer] 07/16/2020 M48.061 Spinal stenosis, lum bar region without neurogenic claudication Nancy Simms, SUPERVISOR [employer] 07/14/2020 M47.817 Spondylosis without myelopathy or radiculopathy, lumbosacral region Nancy Simms, SUPERVISOR [employer] 07/14/2020 M51.27 Other intervertebral disc displa cement, lumbosacral region Nancy Simms, SUPERVISOR [employer] 07/14/2020 M51.37 Other intervertebral disc degene ration, lumbosacral region Nancy Simms, SUPERVISOR [employer] 07/14/2020 M48.061 Spinal stenosis, lum bar region without neurogenic claudication Nancy Simms, SUPERVISOR [employer] 07/10/2020 M47.817 Spondylosis without myelopathy or radiculopathy, lumbosacral region Danamarie Ortolano, SUPERVISOR [employer] 07/10/2020 M51.27 Other intervertebral disc displa cement, lumbosacral region Danamarie Ortolano, SUPERVISOR [employer] 07/10/2020 M51.37 Other intervertebral disc degene ration, lumbosacral region Danamarie Ortolano, SUPERVISOR [employer] 07/10/2020 M48.061 Spinal stenosis, lum bar region without neurogenic claudication Danamarie Ortolano, SUPERVISOR [employer] 07/01/2020 M47.817 Spondylosis without myelopathy or radiculopathy, [...] bar region without neurogenic claudication Danamarie Ortolano, SUPERVISOR [employer] 06/16/2020 M51.37 Other intervertebral disc degene ration, lumbosacral region Danamarie Ortolano, SUPERVISOR [employer] 06/12/2020 M48.061 Spinal stenosis, lum bar region without neurogenic claudication Danamarie Ortolano, SUPERVISOR [employer] 06/12/2020 M51.37 Other intervertebral disc degene ration, lumbosacral region Danamarie Ortolano, SUPERVISOR [employer]ILE 06/10/2020 M48.061 Spinal stenosis, lum bar region without neurogenic claudication Danamarie Ortolano, SUPERVISOR [employer]ILE 06/10/2020 M51.37 Other intervertebral disc degene ration, lumbosacral region Danamarie Ortolano, SUPERVISOR [employer]ILE 06/05/2020 M48.061 Spinal stenosis, lum bar region without neurogenic claudication Orquidea Scee P.T.A. 06/05/2020 M51.37 Other intervertebral disc degene ration, lumbosacral region Orquidea Scee P.T.A. 06/02/2020 M48.061 Spinal stenosis, lum bar region without neurogenic claudication Danamarie Ortolano, SUPERVISOR [employer] 06/02/2020 M51.37 Other intervertebral disc degene ration, lumbosacral region Danamarie Ortolano, SUPERVISOR [employer]ILE 05/29/2020 M48.061 Spinal stenosis, lum bar region without neurogenic claudication Danamarie Ortolano, SUPERVISOR [employer]ILE 05/29/2020 M51.37 Other intervertebral disc degene ration, lumbosacral region Danamarie Ortolano, SUPERVISOR [employer] 05/27/2020 M48.061 Spinal stenosis, lum bar region [...] other site ARABELLA Madden Plan of Treatment No Information Available Functional Status Description No Information Available Mental Status Description No Information Available Referrals Refer to Dr Reason for Referral Status Appt Date Calvin Gutierrez PA authorization for physical t herapy evaluation [phone] Lumbar, patient coming here. Passed to PT Dept. [place] [address] [phone] Calvin Gutierrez PA authorization for physical t herapy Lumbar Spine. Patient coming here. AC [place] [address] [phone]
--- OUTSIDE RECORDS SUMMARY | 2020-09-03 16:43 | CCD | Continuity of Care Document ---
Author Author Allyson PATEL P.T.Marixa Organization Unknown Address [address] [place] [address] Phone [phone] Care Team Providers Care Breaking Machine Operator Name Role Phone Chyna Barry MD [facility] [phone] Problems Description No Information Available Social History [...] BMI (Body Mass Index) 31.6 kg/m2 Results Description No Information Available Procedures Date Code Description Status 06/05/2020 13466 Manual Therapy Each 15 Minutes C ompleted 06/05/2020 88679 Therapeutic Procedure, Each 15 M inutes Completed 06/05/2020 06142 Hot Or Cold Packs Completed 06/02/2020 46964 Manual Therapy Each 15 Minutes C ompleted 06/02/2020 98367 Therapeutic Procedure, Each 15 M inutes Completed 05/29/2020 55380 Manual Therapy Each 15 Minutes C ompleted 05/29/2020 15750 Therapeutic Procedure, Each 15 M inutes Completed 05/29/2020 60559 Hot Or Cold Packs Completed 05/27/2020 78389 Physical Therapy Eval - Mod Comp lexity Completed Medical Devices Description No Information Available Encounters Type Date Location Provider Dx Diagnosis Office Visit 05/12/2020 10:[place]a [place] M47.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, lumbosacr region M51.37 Other intervertebral disc de generation, lumbosacral region M51.27 Other intervertebral disc di splacement, lumbosacral region M48.061 Spinal stenosis, lumbar junior on without neurogenic carol M79.18 Myalgia, other site Assessments Date Code Description Provider 06/05/2020 M48.061 Spinal stenosis, lum bar region without neurogenic claudication Orquidea Patel P.T.A. 06/05/2020 M51.37 Other intervertebral disc degene ration, lumbosacral region Orquidea Scee P.T.A. 06/02/2020 M48.061 Spinal stenosis, lum bar region without neurogenic claudication Danamarie Ortolano, AREA DEVELOPMENT MANAGER 06/02/2020 M51.37 Other intervertebral disc degene ration, lumbosacral region Danamarie Ortolano, AREA DEVELOPMENT MANAGER 05/29/2020 M48.061 Spinal stenosis, lum bar region without neurogenic claudication Danamarie Ortolano, AREA DEVELOPMENT MANAGER 05/29/2020 M51.37 Other intervertebral disc degene ration, lumbosacral region Danamarie Ortolano, AREA DEVELOPMENT MANAGER 05/27/2020 M48.061 Spinal stenosis, lum bar region without neurogenic claudication Laura Cohen, [facility] 05/27/2020 M51.37 Other intervertebral disc degene ration, lumbosacral region Laura Cohen, [facility] 05/12/2020 M47.817 Spondylosis without myelopathy or radiculopathy, lumbosacral region ARABELLA Garza 05/12/2020 M51.37 Other intervertebral disc degene ration, lumbosacral region ARABELLA Garza 05/12/2020 M51.27 Other intervertebral disc displa cement, lumbosacral region ARABELLA Garza 05/12/2020 M48.061 Spinal stenosis, lum bar region without neurogenic claudication ARABELLA Garza 05/12/2020 M79.18 Myalgia, other site ARABELLA Madden Plan of Treatment Future Appointment(s):* 07/01/2020 3:30 pm - ARABELLA Garza at [place] * 06/12/2020 3:30 pm - Jaci Renotolano, AREA DEVELOPMENT MANAGER at Physical Therapy * 06/10/2020 3:30 pm - Danamarie Ortolano, AREA DEVELOPMENT MANAGER at Physical Therapy Functional Status Description No Information Available Mental Status Description No Information Available Referrals Refer to Dr Reason for Referral Status Appt Date Calvin Gutierrez PA authorization for physical t herapy evaluation [id number] Lumbar, patient coming here. Passed to PT Dept. AC Created [address] [place] [address] [address] [place] [address] [phone] Calvin Gutierrez PA authorization for physical t herapy Lumbar Spine. Patient coming here. AC Created [address] [facility] [address] [place] [address] [phone]
--- OUTSIDE RECORDS SUMMARY | 2020-09-03 16:43 | CCD | Continuity of Care Document ---
Author Author Allyson ODOM PT A Organization Unknown Address [address] [address] Phone [phone] Care Team Providers Care Corrugated Sheet Material Sheeter Name Role Phone Chyna Barry MD [facility] [phone] Problems Description No Information Available Social History [...] Date Facility Test Result H/L Range Note Creatinine With GFR 06/11/2020 [facility] ntr [address] [place] [address] (315)- - Creatinine For GFR 0.95 mg/dL Normal 0.55-1.30 Glomerular Filtration Rate > 60.0 Normal >60 1 Laboratory test finding 06/11/2020 [facility] Centr [address] [place] [address] (315)- - Blood Urea Nitrogen 10 mg/dL Normal 7-18 1 Units are mL/min/1.73 m2 Chronic Kidney Disease Staging per NKF: Stage I & II GFR >=60 Normal to Mildly Decreased Stage III GFR 30-59 Moderately Decreased Stage IV GFR 15-29 Severely Decreased Stage V GFR <15 Very Little GFR Left ESRD GFR <15 on REEL ASSEMBLER Procedures Date Code Description Status 06/16/2020 69801 Manual Therapy Each 15 Minutes C ompleted 06/16/2020 20937 Therapeutic Procedure, Each 15 M inutes Completed 06/12/2020 44820 Manual Therapy Each 15 Minutes C ompleted 06/12/2020 52267 Therapeutic Procedure, Each 15 M inutes Completed 06/10/2020 83594 Manual Therapy Each 15 Minutes C ompleted 06/10/2020 48335 Therapeutic Procedure, Each 15 M inutes Completed 06/05/2020 64275 Manual Therapy Each 15 Minutes C ompleted 06/05/2020 83980 Therapeutic Procedure, Each 15 M inutes Completed 06/05/2020 27521 Hot Or Cold Packs Completed 06/02/2020 24024 Manual Therapy Each 15 Minutes C ompleted 06/02/2020 96326 Therapeutic Procedure, Each 15 M inutes Completed 05/29/2020 51025 Manual Therapy Each 15 Minutes C ompleted 05/29/2020 52767 Therapeutic Procedure, Each 15 M inutes Completed 05/29/2020 77568 Hot Or Cold Packs Completed 05/27/2020 50456 Physical Therapy Eval - Mod Comp lexity Completed Medical Devices Description No Information Available Encounters Type Date Location Provider Dx Diagnosis Office Visit 05/12/2020 10:00a ARABELLA Messina M47.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, lumbosacr region M51.37 Other intervertebral disc de generation, lumbosacral region M51.27 Other intervertebral disc di splacement, lumbosacral region M48.061 Spinal stenosis, lumbar junior on without neurogenic carol M79.18 Myalgia, other site Assessments Date Code Description Provider 06/16/2020 M48.061 Spinal stenosis, lum bar region without neurogenic claudication Danamarie Ortolano, PRACTICE OFFICE ASSOCIATE 06/16/2020 M51.37 Other intervertebral disc degene ration, lumbosacral region Danamarie Ortolano, PRACTICE OFFICE ASSOCIATE 06/12/2020 M48.061 Spinal stenosis, lum bar region without neurogenic claudication Danamarie Ortolano, PRACTICE OFFICE ASSOCIATE 06/12/2020 M51.37 Other intervertebral disc degene ration, lumbosacral region Danamarie Ortolano, PRACTICE OFFICE ASSOCIATE 06/10/2020 M48.061 Spinal stenosis, lum bar region without neurogenic claudication Danamarie Ortolano, PRACTICE OFFICE ASSOCIATE 06/10/2020 M51.37 Other intervertebral disc degene ration, lumbosacral region Danamarie Ortolano, PRACTICE OFFICE ASSOCIATE 06/05/2020 M48.061 Spinal stenosis, lum bar region without neurogenic claudication Orquidea Scee P.T.A. 06/05/2020 M51.37 Other intervertebral disc degene ration, lumbosacral region Orquidea Scee P.T.A. 06/02/2020 M48.061 Spinal stenosis, lum bar region without neurogenic claudication Danamarie Ortolano, PRACTICE OFFICE ASSOCIATE 06/02/2020 M51.37 Other intervertebral disc degene ration, lumbosacral region Danamarie Ortolano, PRACTICE OFFICE ASSOCIATE 05/29/2020 M48.061 Spinal stenosis, lum bar region without neurogenic claudication Scarramirorenard Ortolano, PRACTICE OFFICE ASSOCIATE 05/29/2020 M51.37 Other intervertebral disc degene ration, lumbosacral region Vashtirirenard Ortolano, PRACTICE OFFICE ASSOCIATE 05/27/2020 M48.061 Spinal stenosis, lum bar region [...] ARABELLA Madden Plan of Treatment Future Appointment(s):* 06/24/2020 2:30 pm - Jaci Odom PTA at Physical Therapy * 06/19/2020 2:30 pm - MERE [place] at Physical Therapy * 07/01/2020 3:30 pm - ARABELLA Garza at [place] Functional Status Description No Information Available Mental Status Description No Information Available Referrals Refer to Dr Reason for Referral Status Appt Date Calvin Gutierrez PA authorization for physical t herapy evaluation [phone] [phone] [id number] Lumbar, patient coming here. Passed to PT Dept. AC [place] [address] [phone] Calvin Gutierrez PA authorization for physical t herapy Lumbar Spine. Patient coming here. AC Created [place] [address] [phone]
--- OUTSIDE RECORDS SUMMARY | 2020-09-03 16:43 | CCD | Continuity of Care Document ---
Author Author Allyson ODOM PT A Organization Unknown Address [address] [address] Phone [phone] Care Team Providers Care Family Physician Name Role Phone Chyna Barry MD [facility] [phone] Problems Description No Information Available Social History [...] Available Procedures Date Code Description Status 06/05/2020 91200 Manual Therapy Each 15 Minutes C ompleted 06/05/2020 49536 Therapeutic Procedure, Each 15 M inutes Completed 06/05/2020 51580 Hot Or Cold Packs Completed 06/02/2020 13791 Manual Therapy Each 15 Minutes C ompleted 06/02/2020 66765 Therapeutic Procedure, Each 15 M inutes Completed 05/29/2020 85503 Manual Therapy Each 15 Minutes C ompleted 05/29/2020 60103 Therapeutic Procedure, Each 15 M inutes Completed 05/29/2020 11145 Hot Or Cold Packs Completed 05/27/2020 81704 Physical Therapy Eval - Mod Comp lexity Completed Medical Devices Description No Information Available Encounters Type Date Location Provider Dx Diagnosis Office Visit 05/12/2020 10:00[place] M47.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, [...] bar region without neurogenic claudication Danamarie Ortolano, FINANCIAL AID DIRECTOR 06/02/2020 M51.37 Other intervertebral disc degene ration, lumbosacral region Danamarie Ortolano, FINANCIAL AID DIRECTOR 05/29/2020 M48.061 Spinal stenosis, lum bar region without neurogenic claudication Danamarie Ortolano, FINANCIAL AID DIRECTOR 05/29/2020 M51.37 Other intervertebral disc degene ration, lumbosacral region Danamarie Ortolano, FINANCIAL AID DIRECTOR 05/27/2020 M48.061 Spinal stenosis, lum bar region without neurogenic claudication Laura Cohen, [facility] 05/27/2020 M51.37 Other intervertebral disc degene ration, lumbosacral region Laura Cohen, [facility] 05/12/2020 M47.817 Spondylosis without myelopathy or radiculopathy, [...] 07/01/2020 3:30 pm - ARABELLA Garza at [place] * 06/12/2020 3:30 pm - Jaci Renotolano, FINANCIAL AID DIRECTOR at Physical Therapy * 06/10/2020 3:30 pm - Danamarie Ortolano, FINANCIAL AID DIRECTOR at Physical Therapy Functional Status Description No Information Available Mental Status Description No Information Available Referrals Refer to Dr Reason for Referral Status Appt Date Calvin Gutierrez PA authorization for physical t herapy evaluation [phone] [id number] [id number] Lumbar, patient coming here. Passed to PT Dept. AC Created [address] [place] [address] [address] [place] [address] [phone] Calvin Gutierrez PA authorization for physical t herapy Lumbar Spine. Patient coming here. AC Created [address] [facility] [address] [place] [address] [phone]
--- OUTSIDE RECORDS SUMMARY | 2020-09-03 16:43 | CCD | Continuity of Care Document ---
Author Author Allyson CO[facility]EN [facility] Organization Unknown Address [address] [place] [address] Phone [phone] Care Team Providers Care Sap Analyst Name Role Phone Chyna Barry MD [facility] [phone] Problems Description No Information Available Social History [...] H/L Range Note Creatinine With GFR 06/11/2020 [facility] ntr [address] [place] [address] (315)- - Creatinine For GFR 0.95 mg/dL Normal 0.55-1.30 Glomerular Filtration Rate > 60.0 Normal >60 1 Laboratory test finding 06/11/2020 [facility] l Centr [address] [place] [address] (315)- - Blood Urea Nitrogen 10 mg/dL Normal 7-18 1 Units are mL/min/1.73 m2 Chronic Kidney Disease Staging per NKF: Stage I & II GFR >=60 Normal to Mildly Decreased Stage III GFR 30-59 Moderately Decreased Stage IV GFR 15-29 Severely Decreased Stage V GFR <15 Very Little GFR Left ESRD GFR <15 on 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 Procedures Date Code Description Status 06/16/2020 14696 Manual Therapy Each 15 Minutes C ompleted 06/16/2020 19154 Therapeutic Procedure, Each 15 M inutes Completed 06/12/2020 58175 Manual Therapy Each 15 Minutes C ompleted 06/12/2020 75005 Therapeutic Procedure, Each 15 M inutes Completed 06/10/2020 05881 Manual Therapy Each 15 Minutes C ompleted 06/10/2020 15268 Therapeutic Procedure, Each 15 M inutes Completed 06/05/2020 94171 Manual Therapy Each 15 Minutes C ompleted 06/05/2020 75867 Therapeutic Procedure, Each 15 M inutes Completed 06/05/2020 85002 Hot Or Cold Packs Completed 06/02/2020 03768 Manual Therapy Each 15 Minutes C ompleted 06/02/2020 61444 Therapeutic Procedure, Each 15 M inutes Completed 05/29/2020 67702 Manual Therapy Each 15 Minutes C ompleted 05/29/2020 67402 Therapeutic Procedure, Each 15 M inutes Completed 05/29/2020 66936 Hot Or Cold Packs Completed 05/27/2020 43944 Physical Therapy Eval - Mod Comp lexity [...] bar region without neurogenic claudication Danamarie Ortolano, COMPONENT ASSEMBLER 06/16/2020 M51.37 Other intervertebral disc degene ration, lumbosacral region Danamarie Ortolano, COMPONENT ASSEMBLER 06/12/2020 M48.061 Spinal stenosis, lum bar region without neurogenic claudication Danamarie Ortolano, COMPONENT ASSEMBLER 06/12/2020 M51.37 Other intervertebral disc degene ration, lumbosacral region Danamarie Ortolano, COMPONENT ASSEMBLER 06/10/2020 M48.061 Spinal stenosis, lum bar region without neurogenic claudication Danamarie Ortolano, COMPONENT ASSEMBLER 06/10/2020 M51.37 Other intervertebral disc degene ration, lumbosacral region Danamarie Ortolano, COMPONENT ASSEMBLER 06/05/2020 M48.061 Spinal stenosis, lum bar region without neurogenic claudication Orquidea Scee P.T.A. 06/05/2020 M51.37 Other intervertebral disc degene ration, lumbosacral region Orquidea Scee P.T.A. 06/02/2020 M48.061 Spinal stenosis, lum bar region without neurogenic claudication Danamarie Ortolano, COMPONENT ASSEMBLER 06/02/2020 M51.37 Other intervertebral disc degene ration, lumbosacral region Danamarie Ortolano, COMPONENT ASSEMBLER 05/29/2020 M48.061 Spinal stenosis, lum bar region without neurogenic claudication Jaci Ortolano, COMPONENT ASSEMBLER 05/29/2020 M51.37 Other intervertebral disc degene ration, lumbosacral region Vashtirirenard Ortolano, COMPONENT ASSEMBLER 05/27/2020 M48.061 Spinal stenosis, lum bar region without neurogenic claudication Laura EvanIvy Cohen, MSPT 05/27/2020 M51.37 Other intervertebral disc degene ration, lumbosacral region Laura EvanIvy Cohen, MSPT 05/12/2020 M47.817 Spondylosis without myelopathy [...] Future Appointment(s):* 06/24/2020 2:30 pm - Jaci Maciel PTA at Physical Therapy * 07/01/2020 3:30 pm - ARABELLA Garza at [place] Functional Status Description No Information Available Mental Status Description No Information Available Referrals Refer to Dr Reason for Referral Status Appt Date Calvin Gutierrez PA authorization for physical t herapy evaluation [phone] [phone] [id number] Lumbar, patient coming here. Passed to PT Dept. AC Created [address] [place] [address] [phone] Calvin Gutierrez PA authorization for physical t herapy Lumbar Spine. Patient coming here. AC Created [facility] [place] [address] [phone]
--- OUTSIDE RECORDS SUMMARY | 2020-09-03 16:43 | CCD | Continuity of Care Document ---
Author Author Allyson ODOM PT A Organization Unknown Address [address] [address] Phone [phone] Care Team Providers Care Electric Melt Operator Name Role Phone Chyna Barry MD AUT [phone] Problems Description No Information Available Social History [...] Available Procedures Date Code Description Status 06/05/2020 16477 Manual Therapy Each 15 Minutes C ompleted 06/05/2020 45060 Therapeutic Procedure, Each 15 M inutes Completed 06/05/2020 39996 Hot Or Cold Packs Completed 06/02/2020 35580 Manual Therapy Each 15 Minutes C ompleted 06/02/2020 01350 Therapeutic Procedure, Each 15 M inutes Completed 05/29/2020 99637 Manual Therapy Each 15 Minutes C ompleted 05/29/2020 95312 Therapeutic Procedure, Each 15 M inutes Completed 05/29/2020 22444 Hot Or Cold Packs Completed 05/27/2020 70328 Physical Therapy Eval - Mod Comp lexity Completed Medical Devices Description No Information Available Encounters Type Date Location Provider Dx Diagnosis Office Visit 05/12/2020 10:00[place] M47.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, [...] bar region without neurogenic claudication Danamarie Ortolano, CVICU NURSE 06/02/2020 M51.37 Other intervertebral disc degene ration, lumbosacral region Danamarie Ortolano, CVICU NURSE 05/29/2020 M48.061 Spinal stenosis, lum bar region without neurogenic claudication Danamarie Ortolano, CVICU NURSE 05/29/2020 M51.37 Other intervertebral disc degene ration, lumbosacral region Danamarie Ortolano, CVICU NURSE 05/27/2020 M48.061 Spinal stenosis, lum bar region without neurogenic claudication Laura Cohen, [facility] 05/27/2020 M51.37 Other intervertebral disc degene ration, lumbosacral region Laura Cohen, [facility] 05/12/2020 M47.817 Spondylosis without myelopathy or [...] 07/01/2020 3:30 pm - ARABELLA Garza at [place] * 06/12/2020 3:30 pm - Jaci Renotolano, CVICU NURSE at Physical Therapy * 06/10/2020 3:30 pm - Danamarie Ortolano, CVICU NURSE at Physical Therapy Functional Status Description No Information Available Mental Status Description No Information Available Referrals Refer to Dr Reason for Referral Status Appt Date Calvin Gutierrez PA authorization for physical t herapy evaluation [id number] Lumbar, patient coming here. Passed to PT Dept. AC Created [address] [place] [address] [address] [place] [address] [phone] Calvin Gutierrez PA authorization for physical t herapy Lumbar Spine. Patient coming here. AC Created [address] [facility] [address] [place] [address] [phone]
--- OUTSIDE RECORDS SUMMARY | 2020-09-03 16:43 | CCD | Continuity of Care Document ---
Author Author Allyson ODOM PT A Organization Unknown Address [address] [address] Phone [phone] Care Team Providers Care Group Leader Semiconductor Testing Name Role Phone Chyna Barry MD AUT [phone] Problems Description No Information Available Social History [...] H/L Range Note Creatinine With GFR 06/11/2020 [facility] ntr [address] [place] [address] (315)- - Creatinine For GFR 0.95 mg/dL Normal 0.55-1.30 Glomerular Filtration Rate > 60.0 Normal >60 1 Laboratory test finding 06/11/2020 [facility] l Cent[facility] [address] [place] [address] (315)- - Blood Urea Nitrogen 10 mg/dL Normal 7-18 1 Units are mL/min/1.73 m2 Chronic Kidney Disease Staging per NKF: Stage I & II GFR >=60 Normal to Mildly Decreased Stage III GFR 30-59 Moderately Decreased Stage IV GFR 15-29 Severely Decreased Stage V GFR <15 Very Little GFR Left ESRD GFR <15 on PRODUCTION SUPPORT CONSULTANT Procedures Date Code Description Status 06/16/2020 96403 Manual Therapy Each 15 Minutes C ompleted 06/16/2020 05934 Therapeutic Procedure, Each 15 M inutes Completed 06/12/2020 93132 Manual Therapy Each 15 Minutes C ompleted 06/12/2020 29435 Therapeutic Procedure, Each 15 M inutes Completed 06/10/2020 95641 Manual Therapy Each 15 Minutes C ompleted 06/10/2020 03087 Therapeutic Procedure, Each 15 M inutes Completed 06/05/2020 10877 Manual Therapy Each 15 Minutes C ompleted 06/05/2020 17310 Therapeutic Procedure, Each 15 M inutes Completed 06/05/2020 33816 Hot Or Cold Packs Completed 06/02/2020 27344 Manual Therapy Each 15 Minutes C ompleted 06/02/2020 66746 Therapeutic Procedure, Each 15 M inutes Completed 05/29/2020 86459 Manual Therapy Each 15 Minutes C ompleted 05/29/2020 21628 Therapeutic Procedure, Each 15 M inutes Completed 05/29/2020 24089 Hot Or Cold Packs Completed 05/27/2020 88418 Physical Therapy Eval - Mod Comp lexity [...] bar region without neurogenic claudication Danamarie Ortolano, EDITOR PUBLICATIONS 06/16/2020 M51.37 Other intervertebral disc degene ration, lumbosacral region Danamarie Ortolano, EDITOR PUBLICATIONS 06/12/2020 M48.061 Spinal stenosis, lum bar region without neurogenic claudication Danamarie Ortolano, EDITOR PUBLICATIONS 06/12/2020 M51.37 Other intervertebral disc degene ration, lumbosacral region Danamarie Ortolano, EDITOR PUBLICATIONS 06/10/2020 M48.061 Spinal stenosis, lum bar region without neurogenic claudication Danamarie Ortolano, EDITOR PUBLICATIONS 06/10/2020 M51.37 Other intervertebral disc degene ration, lumbosacral region Danamarie Ortolano, EDITOR PUBLICATIONS 06/05/2020 M48.061 Spinal stenosis, lum bar region without neurogenic claudication [employer] 06/05/2020 M51.37 Other intervertebral disc degene ration, lumbosacral region [employer] [facility] 06/02/2020 M48.061 Spinal stenosis, lum bar region without neurogenic claudication Danamarie Ortolano, EDITOR PUBLICATIONS 06/02/2020 M51.37 Other intervertebral disc degene ration, lumbosacral region Danamarie Ortolano, EDITOR PUBLICATIONS 05/29/2020 M48.061 Spinal stenosis, lum bar region without neurogenic claudication Scarramirorenard Ortolano, EDITOR PUBLICATIONS 05/29/2020 M51.37 Other intervertebral disc degene ration, lumbosacral region Vashtirirenard Ortolano, EDITOR PUBLICATIONS 05/27/2020 M48.061 Spinal stenosis, lum bar region [...] 07/01/2020 3:30 pm - ARABELLA Garza at [place] Functional Status Description No Information Available Mental Status Description No Information Available Referrals Refer to Dr Reason for Referral Status Appt Date Calvin Gutierrez PA authorization for physical t herapy evaluation [id number] Lumbar, patient coming here. Passed to PT Dept. AC Created [facility] [place] [address] [phone] Calvin Gutierrez PA authorization for physical t herapy Lumbar Spine. Patient coming here. AC Created [facility] [place] [address] [phone]
--- OUTSIDE RECORDS SUMMARY | 2020-09-03 16:43 | CCD | Continuity of Care Document ---
Author Author Allyson ODOM PT A Organization Unknown Address [address] [address] Phone [phone] Care Team Providers Care Monkey Keeper Name Role Phone Chyna Barry MD AUT [phone] Problems Description No Information Available Social History [...] H/L Range Note Creatinine With GFR 06/11/2020 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 Procedures Date Code Description Status 06/16/2020 04547 Manual Therapy Each 15 Minutes C ompleted 06/16/2020 73078 Therapeutic Procedure, Each 15 M inutes Completed 06/12/2020 99595 Manual Therapy Each 15 Minutes C ompleted 06/12/2020 94303 Therapeutic Procedure, Each 15 M inutes Completed 06/10/2020 44568 Manual Therapy Each 15 Minutes C ompleted 06/10/2020 27519 Therapeutic Procedure, Each 15 M inutes Completed 06/05/2020 28353 Manual Therapy Each 15 Minutes C ompleted 06/05/2020 28787 Therapeutic Procedure, Each 15 M inutes Completed 06/05/2020 79182 Hot Or Cold Packs Completed 06/02/2020 77148 Manual Therapy Each 15 Minutes C ompleted 06/02/2020 41857 Therapeutic Procedure, Each 15 M inutes Completed 05/29/2020 12429 Manual Therapy Each 15 Minutes C ompleted 05/29/2020 85159 Therapeutic Procedure, Each 15 M inutes Completed 05/29/2020 11469 Hot Or Cold Packs Completed 05/27/2020 52821 Physical Therapy Eval - Mod Comp lexity [...] bar region without neurogenic claudication Danamarie Ortolano, CAN CARRIER 06/16/2020 M51.37 Other intervertebral disc degene ration, lumbosacral region Danamarie Ortolano, CAN CARRIER 06/12/2020 M48.061 Spinal stenosis, lum bar region without neurogenic claudication Danamarie Ortolano, CAN CARRIER 06/12/2020 M51.37 Other intervertebral disc degene ration, lumbosacral region Danamarie Ortolano, CAN CARRIER 06/10/2020 M48.061 Spinal stenosis, lum bar region without neurogenic claudication Danamarie Ortolano, CAN CARRIER 06/10/2020 M51.37 Other intervertebral disc degene ration, lumbosacral region Danamarie Ortolano, CAN CARRIER 06/05/2020 M48.061 Spinal stenosis, lum bar region without neurogenic claudication [employer] 06/05/2020 M51.37 Other intervertebral disc degene ration, lumbosacral region [employer] 06/02/2020 M48.061 Spinal stenosis, lum bar region without neurogenic claudication Danamarie Ortolano, CAN CARRIER 06/02/2020 M51.37 Other intervertebral disc degene ration, lumbosacral region Danamarie Ortolano, CAN CARRIER 05/29/2020 M48.061 Spinal stenosis, lum bar region without neurogenic claudication Scarramirorenard Ortolano, CAN CARRIER 05/29/2020 M51.37 Other intervertebral disc degene ration, lumbosacral region Vashtirirenard Ortolano, CAN CARRIER 05/27/2020 M48.061 Spinal stenosis, lum bar region [...] 07/01/2020 3:30 pm - ARABELLA Garza at [place] Functional Status Description No Information Available Mental Status Description No Information Available Referrals Refer to Dr Reason for Referral Status Appt Date Calvin Gutierrez PA authorization for physical t herapy evaluation [phone] [phone] [id number] Lumbar, patient coming here. Passed to PT Dept. AC Created [facility] [place] [address] [phone] Calvin Gutierrez PA authorization for physical t herapy Lumbar Spine. Patient coming here. AC Created [facility] [place] [address] [phone]
--- OUTSIDE RECORDS SUMMARY | 2020-09-03 16:43 | CCD | Continuity of Care Document ---
Author Author Allyson GUTIERREZ PA Organization Unknown Address [address] [place] [address] Phone [phone] Care Team Providers Care Boston Cutter Name Role Phone Chyna Barry MD AUTM [phone] Problems Description No Information Available Social History [...] H/L Range Note Creatinine With GFR 06/11/2020 [facility] ntr [address] [place] [address] (315)- - Creatinine For GFR 0.95 mg/dL Normal 0.55-1.30 Glomerular Filtration Rate > 60.0 Normal >60 1 Laboratory test finding 06/11/2020 [facility] l Cent[facility] [address] [place] [address] (315)- - Blood Urea Nitrogen 10 mg/dL Normal 7-18 1 Units are mL/min/1.73 m2 Chronic Kidney Disease Staging per NKF: Stage I & II GFR >=60 Normal to Mildly Decreased Stage III GFR 30-59 Moderately Decreased Stage IV GFR 15-29 Severely Decreased Stage V GFR <15 Very Little GFR Left ESRD GFR <15 on 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 Procedures Date Code Description Status 06/19/2020 96242 Manual Therapy Each 15 Minutes C ompleted 06/19/2020 85737 Therapeutic Procedure, Each 15 M inutes Completed 06/16/2020 05570 Manual Therapy Each 15 Minutes C ompleted 06/16/2020 52354 Therapeutic Procedure, Each 15 M inutes Completed 06/12/2020 71320 Manual Therapy Each 15 Minutes C ompleted 06/12/2020 18498 Therapeutic Procedure, Each 15 M inutes Completed 06/10/2020 75884 Manual Therapy Each 15 Minutes C ompleted 06/10/2020 31855 Therapeutic Procedure, Each 15 M inutes Completed 06/05/2020 32845 Hot Or Cold Packs Completed 06/05/2020 98860 Therapeutic Procedure, Each 15 M inutes Completed 06/05/2020 72006 Manual Therapy Each 15 Minutes C ompleted 06/02/2020 48154 Manual Therapy Each 15 Minutes C ompleted 06/02/2020 09722 Therapeutic Procedure, Each 15 M inutes Completed 05/29/2020 75306 Manual Therapy Each 15 Minutes C ompleted 05/29/2020 02800 Therapeutic Procedure, Each 15 M inutes Completed 05/29/2020 32102 Hot Or Cold Packs Completed 05/27/2020 41975 Physical Therapy Eval - Mod Comp lexity Completed Medical Devices Description No Information Available Encounters Type Date Location Provider Dx Diagnosis Office Visit 07/01/2020 3:30p ARABELLA [place] M47.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, lumbosacr region M51.27 Other intervertebral disc di splacement, lumbosacral region M79.18 Myalgia, other site M51.37 Other intervertebral disc de generation, lumbosacral region M48.061 Spinal stenosis, lumbar junior on without neurogenic carol Office Visit 05/12/2020 10[place] M47.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, [...] intervertebral disc degene ration, lumbosacral region Laura Smallwood Vicki, MSPT 06/16/2020 M48.061 Spinal stenosis, lum bar region without neurogenic claudication Danamarie Ortolano, WHARF LABORER 06/16/2020 M51.37 Other intervertebral disc degene ration, lumbosacral region Danamarie Ortolano, WHARF LABORER 06/12/2020 M48.061 Spinal stenosis, lum bar region without neurogenic claudication Danamarie Ortolano, WHARF LABORER 06/12/2020 M51.37 Other intervertebral disc degene ration, lumbosacral region Danamarie Ortolano, WHARF LABORER 06/10/2020 M48.061 Spinal stenosis, lum bar region without neurogenic claudication Danamarie Ortolano, WHARF LABORER 06/10/2020 M51.37 Other intervertebral disc degene ration, lumbosacral region Danamarie Ortolano, WHARF LABORER 06/05/2020 M48.061 Spinal stenosis, lum bar region without neurogenic claudication Or[employer] Sce[employer] P[employer]T.A[employer] 06/05/2020 M51.37 Other intervertebral disc degene ration, lumbosacral region Or[employer] S[employer] P[employer]T.A[employer] 06/02/2020 M48.061 Spinal stenosis, lum bar region without neurogenic claudication Danamarie Ortolano, WHARF LABORER 06/02/2020 M51.37 Other intervertebral disc degene ration, lumbosacral region Danamarie Ortolano, WHARF LABORER 05/29/2020 M48.061 Spinal stenosis, lum bar region without neurogenic claudication Danamarie Ortolano, WHARF LABORER 05/29/2020 M51.37 Other intervertebral disc degene ration, lumbosacral region Danamarie Ortolano, WHARF LABORER 05/27/2020 M48.061 Spinal stenosis, lum bar region [...] ARABELLA Madden Plan of Treatment Future Appointment(s):* 07/06/2020 10:00 am - Jaci Maciel, WHARF LABORER at Physical Therapy 07/01/2020 - ARABELLA Garza* M47.817 Spondylosis without myelopathy or radiculopathy, lumbosacral region* New Labs:* CBC With Differential, Ordered: 07/01/20 * High Sensitivity C-Reactive Protein, Ordered: 07/01/20 * Erythrocyte Sedimentation Rate, Ordered: 07/01/20 * M51.27 Other intervertebral disc displacement, lumbosacral region * M79.18 Myalgia, other site * M51.37 Other intervertebral disc degeneration, lumbosacral region * M48.061 Spinal stenosis, lumbar region without neurogenic claudication Functional Status Description No Information Available Mental Status Description No Information Available Referrals Refer to Dr Reason for Referral Status Appt Date Calvin Gutierrez PA authorization for physical t herapy evaluation [id number] Lumbar, patient coming here. Passed to PT Dept. AC Created [facility] [place] [address] [phone] Calvin Gutierrez PA authorization for physical t herapy Lumbar Spine. Patient coming here. AC Created [facility] [place] [address] [phone]
--- OUTSIDE RECORDS SUMMARY | 2020-09-03 16:43 | CCD | Continuity of Care Document ---
Author Author Allyson ODOM PT A Organization Unknown Address [address] [address] Phone [phone] Care Team Providers Care Ornament Stapler Name Role Phone Chyna Barry MD AUT [phone] Problems Description No Information Available Social History [...] 06/11/2020 [facility] ntr [address] [place] [address] (315)- - Creatinine For GFR 0.95 mg/dL Normal 0.55-1.30 Glomerular Filtration Rate > 60.0 Normal >60 1 Laboratory test finding 06/11/2020 [facility] l Cent[facility] [address] [place] [address] (315)- - Blood Urea Nitrogen 10 mg/dL Normal 7-18 1 Units are mL/min/1.73 m2 Chronic Kidney Disease Staging per NKF: Stage I & II GFR >=60 Normal to Mildly Decreased Stage III GFR 30-59 Moderately Decreased Stage IV GFR 15-29 Severely Decreased Stage V GFR <15 Very Little GFR Left ESRD GFR <15 on 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 Procedures Date Code Description Status 06/12/2020 00488 Manual Therapy Each 15 Minutes C ompleted 06/12/2020 20940 Therapeutic Procedure, Each 15 M inutes Completed 06/10/2020 50005 Manual Therapy Each 15 Minutes C ompleted 06/10/2020 77517 Therapeutic Procedure, Each 15 M inutes Completed 06/05/2020 82615 Manual Therapy Each 15 Minutes C ompleted 06/05/2020 04581 Therapeutic Procedure, Each 15 M inutes Completed 06/05/2020 14977 Hot Or Cold Packs Completed 06/02/2020 91848 Manual Therapy Each 15 Minutes C ompleted 06/02/2020 40350 Therapeutic Procedure, Each 15 M inutes Completed 05/29/2020 45717 Manual Therapy Each 15 Minutes C ompleted 05/29/2020 89371 Therapeutic Procedure, Each 15 M inutes Completed 05/29/2020 52977 Hot Or Cold Packs Completed 05/27/2020 62567 Physical Therapy Eval - Mod Comp lexity Completed Medical Devices Description No Information Available Encounters Type Date Location Provider Dx Diagnosis Office Visit 05/12/2020 10:00a [place] ARABELLA Garza M47.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, lumbosacr region M51.37 Other intervertebral disc de generation, lumbosacral region M51.27 Other intervertebral disc di splacement, lumbosacral region M48.061 Spinal stenosis, lumbar junior on without neurogenic carol M79.18 Myalgia, other site Assessments Date Code Description Provider 06/10/2020 M48.061 Spinal stenosis, lum bar region without neurogenic claudication Danamarie Ortolano, SALESFORCE ADMINISTRATOR 06/10/2020 M51.37 Other intervertebral disc degene ration, lumbosacral region Danamarie Ortolano, SALESFORCE ADMINISTRATOR 06/05/2020 M48.061 Spinal stenosis, lum bar region without neurogenic claudication Or[employer] S[employer]e P.T.A[employer] 06/05/2020 M51.37 Other intervertebral disc degene ration, lumbosacral region Or[employer] S[employer] P[employer]T.A[employer] 06/02/2020 M48.061 Spinal stenosis, lum bar region without neurogenic claudication Danamarie Ortolano, SALESFORCE ADMINISTRATOR 06/02/2020 M51.37 Other intervertebral disc degene ration, lumbosacral region Danamarie Ortolano, SALESFORCE ADMINISTRATOR 05/29/2020 M48.061 Spinal stenosis, lum bar region without neurogenic claudication Danamarie Ortolano, SALESFORCE ADMINISTRATOR 05/29/2020 M51.37 Other intervertebral disc degene ration, lumbosacral region Danamarie Ortolano, SALESFORCE ADMINISTRATOR 05/27/2020 M48.061 Spinal stenosis, lum bar region [...] - [place] at Physical Therapy * 06/16/2020 2:00 pm - Jaci Odom PTA at Physical Therapy * 07/01/2020 3:30 pm - ARABELLA Garza at [place] Functional Status Description No Information Available Mental Status Description No Information Available Referrals Refer to Dr Reason for Referral Status Appt Date Calvin Gutierrez PA authorization for physical t herapy evaluation [id number] Lumbar, patient coming here. Passed to PT Dept. Created [place] [address] [phone] Calvin Gutierrez PA authorization for physical t herapy Lumbar Spine. Patient coming here. [place] [address] [phone]
--- OUTSIDE RECORDS SUMMARY | 2020-09-03 16:44 | CCD ---
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 07/14/2020 12:58:00 AM EST [facility] Name Value Range Interpretation Code Description Data Yessica rce(s) Supporting Document(s) White Blood Count 4.8-10.8 Above high normal [facility] Red Blood Count 3.68-5.22 Normal (applies to non-numeric results) [facility] Hemoglobin 11.2-15.7 Normal (applies to non-numeric resul ts) [facility] Hematocrit 34.1-44.9 Normal (applies to non-numeric resul ts) [facility] Mean Corpuscular Volume 81-99 Normal (applies to non- numeric results) [facility] Mean Corpuscular Hemoglobin 27.0-33.0 Normal (appli es to non-numeric results) [facility] Mean Corpuscular HGB Conc 32.0-36.0 Normal (applies to no n-numeric results) [facility] Red Cell Distribution Width 11.5-14.5 Normal (appli es to non-numeric results) [facility] Platelet Count 367 X10 3/uL 130-450 Normal (applies to non-numeric results) [facility] Mean Platelet Volume 9.5-12.7 Below low normal [facility] Imm Grans% (AUTO) 0 % 0-2 Normal (applies to non-numeri c results) [facility] Neutrophils % (AUTO) 53 % 40-75 Normal (applies to non-num reva results) [facility] Lymphocytes % (AUTO) 38 % 21-46 Normal (applies to non-num reva results) [facility] Monocytes % (AUTO) 7 % 5-12 Normal (applies to non-numer ic results) [facility] Eosinophils % (AUTO) 1 % 1-5 Normal (applies to non-num reva results) [facility] Basophils % (AUTO) 1 % 0-1 Normal (applies to non-numer ic results) [facility] Imm Grans# (AUTO) 0.0-0.5 Normal (applies to non-numeri c results) [facility] Neutrophils # (AUTO) 1.5-8.1 Normal (applies to non-num reva results) [facility] Lymphocytes # (AUTO) 1.0-3.1 Above high normal [facility] Monocytes # (AUTO) 0.2-1.3 Normal (applies to non-numer ic results) [facility] Eosinophils# (AUTO) 0.0-0.5 Normal (applies to non-nume rosalind results) [facility] Basophils # (AUTO) 0.0-0.1 Normal (applies to non-numer ic results) [facility] ID Date Data Source [id number] 07/14/2020 12:58:00 AM EST [facility] Name Value Range Interpretation Code Description Data Yessica rce(s) Supporting Document(s) Color,Urine Yellow Normal (applies to non-numeric resu lts) [facility] Clarity,Urine Clear Normal (applies to non-numeric re sults) [facility] Specific [place],Urine 1.001-1.030 Normal (applies to non- numeric results) [facility] PH,Urine 5.0-8.0 Normal (applies to non-numeric resul ts) [facility] Protein,Urine Negative Normal (applies to non-numeric re sults) [facility] Glucose,Urine (UA) Negative Normal (applies to non-numer ic results) [facility] Ketones,Urine Negative Normal (applies to non-numeric re sults) [facility] Blood,Urine Negative Normal (applies to non-numeric resu lts) [facility] Bilirubin,Urine Negative Normal (applies to non-numeric results) [facility] Urobilinogen,Urine Norm 0.2-1 Normal (applies to non-numer ic results) [facility] Leukocyte Esterase,Urine Negative Normal (applies to non -numeric results) [facility] Nitrite,Urine Negative Normal (applies to non-numeric re sults) [facility] RBC,Auto Urine 0-2 Normal (applies to non-numeric r esults) [facility] WBC Urine Auto 0-10 Normal (applies to non-numeric r esults) [facility] Casts,Hyaline,Urine Auto 0-2 Normal (applies to non -numeric results) [facility] Bacteria Urine Auto None Seen Normal (applies to non-nume rosalind results) [facility] Epithelial Cell Ur Auto None-Few Normal (applies to non- numeric results) [facility] ID Date Data Source [id number] 07/14/2020 12:58:00 AM EST [facility] Name Value Range Interpretation Code Description Data Yessica rce(s) Supporting Document(s) Urine Culture [facility] ID Date Data Source [id number] 06/16/2020 12:00:00 AM EST [facility] Patient Name: MARCO A BEARD[address] [facility] Date of : 1980 2 Date of Exam: 06/16/2020NOMAN Alonzo [id number]#: Fax: [phone] EXAM: MRI LUMBAR SPINE WITHOUT&WITH CONTRASTPROCEDURE INFORMATION:Exam: MR Lumbar Spine Without and With Contrast.Exam date and time: 06/16/2020 9:00 AM Age: 39 years oldClinical indication: Low back painTECHNIQUE: Imaging protocol: Multiplanar magnetic resonance images of thelumbar spine without and with intravenous contrast. Contrast material:PROHANCE; Contrast volume: 18 ml; Contrast route: INTRAVENOUS (IV);COMPARISON: MRI LUMBAR SPINE WITHOUT CONTRAST 12/30/2015 1:07 PMFINDINGS:Spinal cord: Normal signal. No cord compression.L1-L2: No significant disc disease. No significant spinal canal stenosis.No neural foraminal stenosis. L2-L3: There is disc space narrowing anddesiccation. There are moderate degenerative end plate changes at thislevel, primarily anteriorly. This is new since prior study. There isquestion of prevertebral edema and/or hypertrophic bony changes. This couldrepresent a large anterior disc herniation. Underlying infection cannot beexcluded based on this exam. This is not fully characterized on this exam.Follow-up CT scan of the lumbar spine is recommended. There is a smallcentral disc protrusion. There is moderate bilateral neural foraminalnarrowing.L3-L4: No significant disc disease. No significant spinal canal stenosis.No neural foraminal stenosis. L4-L5: There is a moderate disc bulge with alarge superimposed broad-based central/left paracentral disc herniationextending into the left neural foramen, new compared to prior study. Thereis moderate left-sided neuroforaminal narrowing. There is mild right-sidedneuroforaminal narrowing. There is exuberant bilateral facet arthropathyand ligamentum flavum hypertrophy. There is moderate spinal canal stenosis.L5-S1: There is disc desiccation. There is a moderate disc bulge with asmall superimposed central disc herniation, larger than prior study. Discbulging extends into both neural foramen causing mild bilateral neuralforaminal narrowing.Soft tissues: Unremarkable.IMPRESSION:Multilevel degenerative changes causing variable degrees of spinal [place] neuroforaminal narrowing as described above. Changes are most severe atL2/3. Differential diagnosis includes aggressive degenerative changes,large anterior disc herniation, trauma, infection. Follow-up CT scan of thelumbar spine is recommended.Thank you for allowing us to participate in the care of your patient.Dictated and Authenticated by: Catarino Atkins MD 06/16/2020 10:41 AM [facility] [facility] [place])Sidra/Jae you for referring MARCO A BEARD to our office.Electronically Signed - [facility] 06/16/20 10:48 Name Value Range Interpretation Code Description Data Yessica rce(s) Supporting Document(s) ID Date Data Source [id number] 06/11/2020 02:42:00 PM EST [facility] ([facility]) Name Value Range Interpretation Code Description Data Yessica rce(s) Supporting Document(s) Urea nitrogen [Mass/volume] in Serum or Plasma 10 mg/dL 7-18 [facility] ([facility]) ID Date Data Source [id number] 06/11/2020 02:42:00 PM EST [facility] ([facility]) Name Value Range Interpretation Code Description Data Yessica rce(s) Supporting Document(s) Creatinine For GFR 0.95 mg/dL 0.55-1.30 [facility] ([facility]) Glomerular Filtration Rate [facility] <content>Units are mL/min/1.73 m2</content>
<content></content>
<content>Chronic Kidney Disease Staging per NKF:</content>
<content></content>
<content>Stage I & II GFR >=60 Normal to Mildly Decreased</content>
<content>Stage III GFR 30- 59 Moderately Decreased</content>
<content>Stage IV GFR 15-29 Severely Decreased</content>
<content>Stage V GFR <15 Very Little GFR Left</content>
<content>ESRD GFR <15 on [facility]NER</content>
<content></content> ID Date Data Source [id number] 09/09/2019 12:00:00 AM EST [facility] Patient Name: MARCO A BEARD[address] [facility] Date of : 1980e 2 Date of Exam: 09/09/2019NOMAN Alonzo [id number]#: Fax: [phone] EXAM: MRI CERVICAL SPINE WITHOUT&WITH CONTRASTPROCEDURE INFORMATION:Exam: MR Cervical Spine Without and With ContrastExam date and time: 09/09/2019 1:08 PM Age: 38 years oldClinical indication: Neck painTECHNIQUE: Imaging protocol: Multiplanar magnetic resonance images of thecervical spine without and with intravenous contrast. Contrast material:PROHANCE; Contrast volume: 18 ml; Contrast route: RAC;COMPARISON: No relevant prior studies available.FINDINGS:Vertebrae: Straightening of the upper cervical lordosis may be positionalor due to muscle spasm. No acute fracture seen.Spinal cord: Normal signal. No cord compression. No abnormal enhancement.There is disc desiccation from C2-C3 through C6-C7. No significant discheight loss. Prevertebral spondylosis is mild at C5-C6, minimal at C6-C7.C2-C3: Mild facet arthropathy. No stenoses.C3-C4: No significant disc disease. No significant spinal stenosis.C4- C5: Minimal uncovertebral and facet arthropathy without contribution toforaminal stenoses. C5-C6: Slight disc bulge does not contribute centralspinal canal stenosis. Mild uncovertebral and facet arthropathy causingmild bilateral neural foraminal stenoses.C6-C7: Mild disc bulge does not contribute to stenoses.C7-T1: Mild disc bulge does not contribute to central spinal canalstenosis. Minimal uncovertebral arthropathy as well as mild facetarthropathy without contribution to foraminal stenoses.Marrow: No enhancing lesions identified in the bone marrow.Vertebral arteries: Expected flow voids in the vertebral arteries.Soft tissues: Unremarkable.IMPRESSION:1. Minimal to mild degenerative changes.2. Mild bilateral neural foraminal stenoses at C5-C6. The central spinalcanal is patent at all levels. No evidence of cord myelopathy.Thank you for allowing us to participate in the care of your patient.Dictated and Authenticated by: Dionne Kulkarni MD 09/10/2019 11:33 AMEastern Time ([place] & [place])VradV/Jae you for referring MARCO A BEARD to our office.Electronically Signed - [facility] 09/10/19 12:32 Name Value Range Interpretation Code Description Data Yessica rce(s) Supporting Document(s) ID Date Data Source [id number] 09/09/2019 12:00:00 AM EST [facility] Patient Name: MARCO A [id number] [facility] Date of : 1980 2 Date [facility]: [facility] [id number] Fax: [phone] EXAM: MRI LUMBAR SPINE WITHOUT&WITH CONTRASTPROCEDURE INFORMATION:Exam: MR Lumbar Spine Without and With Contrast.Exam date and time: 09/09/2019 1:41 PM Age: 38 years oldClinical indication: Low back painTECHNIQUE: Imaging protocol: Multiplanar magnetic resonance images of thelumbar spine without and with intravenous contrast. Contrast material:PROHANCE; Contrast volume: 18 ml; Contrast route: RAC;COMPARISON: MRI LUMBAR SPINE WITHOUT CONTRAST 12/30/2015 1:07 PMFINDINGS:Vertebrae: There is an L3 hemangioma. No enhancing lesions identified inthe marrow. Slight ventral endplate edema and enhancement at L2-L3, likelydiscogenic. 4-5 mm of degenerative retrolisthesis of L5 on S1, as before.No acute fracture seen. The AP spinal canal diameter is mildly diminishedon a developmental basis due to shortened pedicles.Spinal cord: The conus medullaris ends normally. There is disc desiccationat L2-L3, L4-L5 and L5- S1. Mild disc height loss with mild to moderateprevertebral spondylosis at L2- L3. Minimal endplate degenerative changeselsewhere without significant disc height loss. The disc degeneration atL4-L5 is new compared to the prior study. Progressive disc degeneration,disc height loss and prevertebral spondylosis at L2-L3.L1-L2: No significant disc disease. No significant spinal canal stenosis.No neural foraminal stenosis. L2-L3: Progressive, moderate diffuse discbulge causing new, mild central spinal canal stenosis. No significantforaminal stenoses.L3-L4: No significant interval change. Mild facet arthropathy. Nosignificant stenoses.L4-L5: Mild disc bulge as well as mild to moderate right and mild leftfacet arthropathy with right greater than left ligamentum flavum buckling,similar to prior. There is a new left lateral canal disc protrusion withhigh-intensity zone measuring approximately 3 mm in AP dimension whicheffaces the left lateral recess near the left L5 nerve root. Central spinalcanal stenosis is mild. Mild left neural foraminal stenosis. No significantright neural foraminal narrowing.L5-S1: No significant interval change. Mild diffuse disc bulge and facetarthropathy. A central disc protrusion may contact the S1 nerve rootswithout contribution to nerve root compression or displacement. Nosignificant central spinal canal or foraminal stenoses.Soft tissues: Unremarkable.IMPRESSION:1. Mild progression of disc degeneration since 2015.2. A new left lateral canal disc protrusion with high-intensity zone atL4- L5 may be cause of left L5 distribution radiculopathy.3. A central disc protrusion is again demonstrated at L5-S1 which maycontact the S1 nerve roots.4. New, mild central spinal canal stenosis at L2-L3 due to diffuse discbulge.Thank you for allowing us to participate in the care of your patient.Dictated and Authenticated by: Dionne Kulkarni MD 09/10/2019 11:21 AMEastern Time ([place])YungV/Jae you for referring MARCO A BEARD to our office.Electronically Signed - [facility] 09/10/19 12:29 Name Value Range Interpretation Code Description Data Yessica rce(s) Supporting Document(s) ID Date Data Source [id number] 08/21/2019 03:03:00 PM EST [facility] ([facility]) Name Value Range Interpretation Code Description Data Yessica rce(s) Supporting Document(s) Glomerular Filtration Rate [facility] <content>Units are mL/min/1.73 m2</content>
<content></content>
<content>Chronic Kidney Disease Staging per NKF:</content>
<content></content>
<content>Stage I & II GFR >=60 Normal to Mildly Decreased</content>
<content>Stage III GFR 30- 59 Moderately Decreased</content>
<content>Stage IV GFR 15-29 Severely Decreased</content>
<content>Stage V GFR <15 Very Little GFR Left</content>
<content>ESRD GFR <15 on [facility]NER</content>
<content></content> Creatinine For GFR 0.84 mg/dL 0.55-1.30 [facility] ([facility]) ID Date Data Source [id number] 08/21/2019 03:03:00 PM EST [facility] ([facility]) Name Value Range Interpretation Code Description Data Yessica rce(s) Supporting Document(s) Urea nitrogen [Mass/volume] in Serum or Plasma 11 mg/dL 7-18 [facility] Procedure Vital Signs ID Date Data Source UNK Name Value Range Interpretation Code Description Data Source(s) Body mass index (BMI) [Ratio] 31.6 kg/m2 31.6 k g/m2 [facility] ([facility]) Body weight 202.00 [lb_av] 202.00 [lb_av] [facility] T ([facility]) Body height 67 [in_i] 67 [in_i] [facility] ([facility]) 5'7" Body temperature 97.5 [degF] 97.5 [degF] [facility] ([facility]) ID Date Data Source [id number] 08/26/2020 12:19:00 AM [facility] Name Value Range Interpretation Code Description Data Source(s) Weight (Calculated Kilograms) 90.26 90.26 [facility] Height (Calculated Centimeters) 170.18 170. 18 [facility] Body Mass Index (BMI) 31.1 31.1 [facility] ID Date Data Source [id number] 08/12/2020 12:28:00 AM [facility] Name Value Range Interpretation Code Description Data Source(s) Weight (Calculated Kilograms) 90.26 90.26 [facility] Height (Calculated Centimeters) 170.18 170. 18 [facility] Body Mass Index (BMI) 31.1 31.1 [facility] ID Date Data Source [id number] 07/14/2020 12:58:00 AM [facility] Name Value Range Interpretation Code Description Data Source(s) Weight (Calculated Kilograms) 90.26 90.26 [facility] Height (Calculated Centimeters) 170.18 170. 18 [facility] Body Mass Index (BMI) 31.1 31.1 [facility] ID Date Data Source [id number] 08/09/2019 12:58:00 AM [facility] Name Value Range Interpretation Code Description Data Source(s) Weight (Calculated Kilograms) 90.26 90.26 [facility] Height (Calculated Centimeters) 170.18 170. 18 [facility] Body Mass Index (BMI) 31.1 31.1 [facility]
[2020-09-03 17:11] LABS: BASO # 0.1 10^3/uL (0.0-0.2); BASO % 0.6 % (0.0-1.0); EOS # 0.4 10^3/uL (0.0-0.5); EOS % 2.6 % (0.0-3.0); HEMATOCRIT 41.7 % (36.0-47.0); HEMOGLOBIN 14.2 g/dl (12.0-15.5); LYMPH % 35.6 % (24.0-44.0); MEAN CORPUSCULAR HEMOGLOBIN 31.6 pg (27.0-33.0); MEAN CORPUSCULAR HGB CONC 34.1 g/dl (32.0-36.5); MEAN CORPUSCULAR VOLUME 92.7 fl (80.0-96.0); MONO # 0.9 10^3/uL (0.0-0.8); MONO % 6.3 % (0.0-5.0); NEUTROPHILS # 7.7 10^3/uL (1.5-8.5); NEUTROPHILS % 54.6 % (36.0-66.0); PLATELET COUNT, AUTOMATED 305 10^3/uL (150-450)
[2020-09-03 17:13] LABS: WHITE BLOOD COUNT 14.1 10^3/uL (4.0-10.0)
[2020-09-03 17:33] LABS: ALBUMIN 3.9 GM/DL (3.2-5.2); ALT/SGPT 24 U/L (12-78); BILIRUBIN,DIRECT 0.2 MG/DL (0.0-0.2); BILIRUBIN,TOTAL 0.9 MG/DL (0.2-1.0); BLOOD UREA NITROGEN 12 MG/DL (7-18); CALCIUM LEVEL 9.6 MG/DL (8.5-10.1); CARBON DIOXIDE LEVEL 25 MEQ/L (21-32); CHLORIDE LEVEL 107 MEQ/L (98-107); GLOMERULAR FILTRATION RATE > 60.0 (>60); GLUCOSE, FASTING 99 MG/DL (70-100); LIPASE 104 U/L (73-393); POTASSIUM SERUM 3.9 MEQ/L (3.5-5.1); SODIUM LEVEL 140 MEQ/L (136-145)
[2020-09-03] MEDS ORDERED: ISOVUE-370 76% 100ML VIAL As Ordered ONE (17:54)
--- NOTE | 2020-09-03 18:25 | REPVR ---
PROCEDURE INFORMATION: Exam: CT Abdomen And Pelvis Without Contrast Exam date and time: 09/03/2020 5:57 PM Age: 39 years old Clinical indication: Abdominal pain; Additional info: R flank pain, rlq pain, PT S/P appendectomy TECHNIQUE: Imaging protocol: Computed tomography of the abdomen and pelvis without contrast. Axial, coronal and sagittal reformatted images were created and reviewed. Radiation optimization: All CT scans at this facility use at least one of these dose optimization techniques: automated exposure control; mA and/or kV adjustment per patient size (includes targeted exams where dose is matched to clinical indication); or iterative reconstruction. COMPARISON: CT ABD/PEL W/IV CONTRAST ONLY 07/21/2020 5:11 AM FINDINGS: Lungs: Subtle, patchy areas of rounded ground-glass infiltration at the left greater than right lung bases. Left lower lobe nodular densities, measuring up to 4 mm (series 201, image 14). Liver: Diffuse hepatic steatosis. Gallbladder and bile ducts: No radiodense gallstones. No biliary ductal dilatation. Pancreas: Unremarkable. Spleen: Unremarkable. Adrenal glands: Normal. No mass. Kidneys and ureters: No mass. No radiodense calculi. No hydronephrosis. Stomach and bowel: No bowel wall thickening. No obstruction. No pneumatosis. Appendix: Status post appendectomy by history. Intraperitoneal space: No free fluid. No organized fluid collection. No free air. Vasculature: Unremarkable. No aneurysm. Lymph nodes: No pathologically enlarged lymph nodes. Urinary bladder: Unremarkable as visualized. Reproductive: Status post hysterectomy. Bones/joints: No acute osseous abnormality. Mild degenerative changes. Soft tissues: Unremarkable. IMPRESSION: 1. Limited noncontrast examination without CT evidence of acute intra-abdominal or pelvic pathology. 2. Subtle, patchy areas of rounded ground-glass infiltration at the left greater than right lung bases. Imaging features can be seen with COVID-19 pneumonia, though are nonspecific and can occur with a variety of infectious and noninfectious processes. (Reference: Judah) 3. Left lower lobe nodular densities, measuring up to 4 mm. For patients at low risk (minimal or absent history of smoking and of other known risk factors), no routine follow-up is indicated. For patients at high risk (history of smoking or of other known risk factors), consider optional CT Chest at 12 months. (Reference: Grace) 4. Additional findings, as above. REFERENCES: 1. Judah Francis et al., Radiological Society of [place] Expert Consensus Statement on Reporting Chest CT Findings Related to COVID-19. Endorsed by the Society of Thoracic Radiology, the [place] [employer], and RSNA. Published October 23, 2019. 2. Grace West et al. Guidelines for Management of Incidental Pulmonary Nodules Detected on CT Images: From the Fleischner Society 2017. Radiology. 2017;284(1):228-243. Electronically signed by: Gagandeep Corral On 09/03/2020 18:25:04 PM
[2020-09-03 20:42] VITALS: O2SAT 97
[2020-09-03 20:43] VITALS: BP 137/79
--- NOTE | 2020-09-05 10:14 | ED PDOC ---
Post-Departure Follow-Up [facility] faxed formal report of ct abd/p for fu Chantal Loomis MD Sep 05, 2020 10:14
== END 2020-09-03 20:48 | disposition home or self-care (01) ==
LOC: M ED 15:44
DX: Z11.52 Encounter for screening for COVID-19 (principal); R91.8 Other nonspecific abnormal finding of lung field; N18.30 Chronic kidney disease, stage 3 unspecified; E78.5 Hyperlipidemia, unspecified; F33.9 Major depressive disorder, recurrent, unspecified; F41.9 Anxiety disorder, unspecified; R91.1 Solitary pulmonary nodule; K21.9 Gastro-esophageal reflux disease without esophagitis; G43.909 Migraine, unspecified, not intractable, without status migrainosus; Z79.899 Other long term (current) drug therapy; Z88.1 Allergy status to other antibiotic agents; Z88.8 Allergy status to other drugs, medicaments and biological substances; F17.210 Nicotine dependence, cigarettes, uncomplicated; F12.20 Cannabis dependence, uncomplicated
CPT/HCPCS: 36415; 74176; 80048; 80076; 81001; 83690; 85025; 87804; 99284; U0003

== ENCOUNTER → 2020-10-08 | Outpatient (CLI) | payer OTHER ==
[~2020-10-08] MED LIST changes: +HYDR1TAB33 PO; +METH-1164 PO; +PROHANCE 279.3MG/ML 15ML VIAL As Ordered ONE; +PROHANCE 279.3MG/ML 5ML VIAL As Ordered ONE
--- NOTE | 2020-10-08 12:34 | REP ---
INDICATION: LUNG NODULES COMPARISON: 12/17/2018 TECHNIQUE: Axial noncontrast images from the thoracic inlet to the upper abdomen with coronal and sagittal reformations. This CT examination was performed using the following dose reduction techniques: Automated exposure control, adjustment of mA and/or kv according to the patient's size, and use of iterative reconstruction technique. FINDINGS: There is a stable 1.8 cm calcified granuloma at the left apex along with few small nonspecific and likely insignificant nodular densities measuring up to 3 mm, 1 of which remains stable as compared with 12/17/2018 and the others may have been obscured by atelectasis and technique. No new significant nodule, or mass lesion. No consolidation or effusion. No pneumothorax. Tracheobronchial tree is patent. The mediastinum demonstrates relatively normal thoracic aorta, pulmonary vasculature, and heart/pericardium. No obvious adenopathy. Surrounding musculoskeletal structures without acute osseous abnormality. IMPRESSION: Findings as described above likely represent sequelae of prior granulomatous disease. No acute/significant mediastinal or pleuroparenchymal process is appreciated. <Electronically signed by Shyam Baptiste > 10/08/20 [id number]
--- NOTE | 2020-10-08 13:39 | REP ---
INDICATION: NEW DAILY PERSISTENT HEADACHE. COMPARISON: Comparison MRI study April 16, 2015. Comparison is made with CT images from maxillofacial CT study April 28, 2019. There is a CT study of the brain from June 21, 2016.. TECHNIQUE: Axial and sagittal imaging planes are utilized for T1 and T2-weighted scans. Sequences include spin-echo, fast spin echo, FLAIR, and diffusion weighted sequences. 17 mL of intravenous ProHance is administered and T1 weighted post gadolinium enhanced images are acquired in all 3 planes. FINDINGS: The bony calvarium is intact. Craniocervical junction and upper cervical cord are normal in appearance. There is no evidence of intraorbital abnormality on either side. There is moderate mucosal thickening affecting the right maxillary sinus. No other evidence of significant paranasal sinus disease is seen. There is no evidence of of acute ischemia on diffusion-weighted scans. No acute intracranial hemorrhage is seen. There is however a new lesion in the right frontal lobe superiorly characterized by encephalomalacia in the white matter extending through the overlying castillo. On T2 weighted scans there is evidence of a thin hemosiderin ring surrounding the edge of this lesion. Lesions dimensions are 2.0 x 1.3 x 3.4 cm. This shows low T1 and high T2 signal intensity isointense with CSF consistent with this being a focal area of encephalomalacia. There is no observable mass effect. 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 However, it is new when compared with the available prior brain imaging studies from 2014, 2015, and 2018. There is no definite gadolinium enhancement within the lesion. No other abnormal gadolinium enhancement is seen. Castillo-white differentiation pattern is otherwise intact. No extra-axial fluid collection is seen. No mass lesion is observed. 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 This lesion was not observed on [address] The 2019 study was a maxillofacial study and may not have included the area of interest superiorly. No acute infarction is seen. Recommendation. Consider MR angiography of the brain and carotid sonography. <Electronically signed by Lg Ya > 10/08/20 [id number]
== END ==
LOC: M RAD 10:46
PROVIDERS: ATTEND Family Medicine
DX: G44.52 New daily persistent headache (NDPH) (principal); R91.8 Other nonspecific abnormal finding of lung field
CPT/HCPCS: 70553; 71250; A9576

== ENCOUNTER 2020-12-15 16:50 | Emergency (ER) | payer OTHER ==
[~2020-12-15] VITALS: Ht 170.2 cm; Wt 89.3 kg
[~2020-12-15 16:50] MED LIST changes: -PROHANCE 279.3MG/ML 15ML VIAL As Ordered ONE; -PROHANCE 279.3MG/ML 5ML VIAL As Ordered ONE
[2020-12-15] MEDS ORDERED: BOOSTRIX/ADACEL VACCINE (DIPHTH/PERTUSS/ACELL/TETANUS) 0.5ML SYR IM ONE (19:05)
[2020-12-15 19:28] VITALS: BP 147/81
== END 2020-12-15 19:35 | disposition home or self-care (01) ==
LOC: M ED 16:50
DX: S61.001A Unspecified open wound of right thumb without damage to nail, initial encounter (principal); W29.0XXA Contact with powered kitchen appliance, initial encounter; Y92.59 Other trade areas as the place of occurrence of the external cause; Y93.89 Activity, other specified; Y99.0 Civilian activity done for income or pay; F17.200 Nicotine dependence, unspecified, uncomplicated; Z79.899 Other long term (current) drug therapy; Z88.8 Allergy status to other drugs, medicaments and biological substances

== ENCOUNTER → 2021-01-05 | Outpatient (CLI) | payer OTHER ==
[2021-01-05 18:15] LABS: INR 0.84; PARTIAL THROMBOPLASTIN TIME 29.1 SECONDS (24.2-38.5); PROTHROMBIN TIME 11.7 SECONDS (12.5-14.3)
[2021-01-05 18:33] LABS: RHEUMATOID FACTOR QUANT < 10.0 IU/ML (<15.0); TOTAL PROTEIN 6.8 GM/DL (6.4-8.2)
[2021-01-05 18:39] LABS: HEMOGLOBIN A1c 5.4 %
[2021-01-06 13:07] LABS: DRVV SCREEN 38.1 SEC
[2021-01-06 13:14] LABS: PTT LUPUS TYPE ANTICOAG SCREEN 0.9 (0-1.2)
[2021-01-07 11:48] LABS: ALBUMIN 3.96 GM/DL (3.29-5.55); ALBUMIN % 58.2 % (55.8-66.1); ALPHA-1-GLOBULIN % 4.4 % (2.9-4.9); ALPHA-2-GLOBULINS 0.75 GM/DL (0.42-0.99); BETA-1-GLOBULINS 0.53 GM/DL (0.28-0.60); BETA-1-GLOBULINS % 7.8 % (4.7-7.2); BETA-2-GLOBULINS 0.41 GM/DL (0.19-0.55); BETA-2-GLOBULINS % 6.1 % (3.2-6.5); GAMMA GLOBULIN % 12.5 % (11.1-18.8); GAMMA GLOBULINS 0.85 GM/DL (0.65-1.58)
[2021-01-12 14:09] LABS: ANCA-ATYPICAL <1:20 titer (Neg:<1:20); ANTI DS-DNA AB Negative (Negative); ANTI THROMBIN 3 ANTIGEN IMMUNO 87 % (72-124); ANTINUCLEAR ANTIBODIES DIRECT Negative (Negative); CARDIOLIPIN IGA ANTIBODY <9 APL U/mL (0-11); CARDIOLIPIN IGG ANTIBODY <9 GPL U/mL (0-14); CARDIOLIPIN IGM ANTIBODY <9 MPL U/mL (0-12); COPPER PLASMA 110 ug/dL (80-158); CYTOPLASMIC NEUTROP AB ANCA-C <1:20 titer (Neg:<1:20); F8 ACTIVITY FOR F8 PANEL 95 % (56-140); F8 ACTIVITY vWB FOR F8 PANEL 75 % (50-200); F8 ANTIGEN FOR F8 PANEL 147 % (50-200); HOMOCYST(E)INE SERUM 10.1 umol/L (0.0-14.5); PERINUCLEAR AB ANCA-P <1:20 titer (Neg:<1:20); PROTEIN C FUNCTIONAL ACTIVITY 118 % (73-180); PROTEIN S FUNCTIONAL ACTIVITY 119 % (63-140); SJOGREN'S ANTI SS-A <0.2 AI (0.0-0.9); SJOGREN'S ANTI SS-B <0.2 AI (0.0-0.9); VITAMIN B1 LEVEL WHOLE BLOOD 117.2 nmol/L (66.5-200.0); VITAMIN B6,PYRIDOXAL PHOSPHATE 40.4 ug/L (2.0-32.8); VITAMIN E(ALPHA TOCOPHEROL) 12.6 mg/L (7.0-25.1); VITAMIN E(GAMMA TOCOPHEROL) 2.4 mg/L (0.5-5.5)
== END ==
LOC: M PLALAB 15:16
PROVIDERS: ATTEND Psychiatry & Neurology Neurology
DX: G62.9 Polyneuropathy, unspecified (principal); E11.9 Type 2 diabetes mellitus without complications; G37.3 Acute transverse myelitis in demyelinating disease of central nervous system; Z86.73 Personal history of transient ischemic attack (TIA), and cerebral infarction without residual deficits

== ENCOUNTER 2021-01-23 12:18 | Emergency (ER) | payer OTHER ==
[~2021-01-23 12:18] MED LIST changes: -DOXY100C37 PO; +DOXY1CAP62 PO
[2021-01-23] MEDS ORDERED: FLUORESCEIN OPHTH 1 MG STRIP OS ONE (14:00)
[2021-01-23] MEDS ORDERED: PROPARACAINE 0.5% OPHTH SOL 15ML OS ONE (14:00)
[2021-01-23 14:38] VITALS: BP 146/84
== END 2021-01-23 14:42 | disposition home or self-care (01) ==
LOC: M ED 12:18
DX: H57.9 Unspecified disorder of eye and adnexa (principal); I12.9 Hypertensive chronic kidney disease with stage 1 through stage 4 chronic kidney disease, or unspecified chronic kidney disease; N18.30 Chronic kidney disease, stage 3 unspecified; J45.909 Unspecified asthma, uncomplicated; E78.5 Hyperlipidemia, unspecified; G43.909 Migraine, unspecified, not intractable, without status migrainosus; Z79.899 Other long term (current) drug therapy; Z88.1 Allergy status to other antibiotic agents; Z88.8 Allergy status to other drugs, medicaments and biological substances; F17.210 Nicotine dependence, cigarettes, uncomplicated

== ENCOUNTER 2022-06-15 22:32 | Emergency (ER) | payer OTHER ==
[~2022-06-15] VITALS: Ht 170.2 cm; Wt 84.8 kg
[~2022-06-15 22:32] MED LIST changes: +DOXY-443 PO; -DOXY1CAP62 PO
[2022-06-16 00:01] LABS: RSV AMPLIFICATION NEGATIVE (NEGATIVE)
[2022-06-16] MEDS ORDERED: IPRATROPIUM 0.5MG/ALBUTEROL 2.5MG INH SOL UD 3ML (DUONEB) NEB ONE (02:50)
[2022-06-16] MEDS ORDERED: predniSONE 20 MG TAB PO ONE (02:50)
[2022-06-16 05:45] VITALS: BP 134/66
[2022-06-16] MEDS ORDERED: BENZ200C70 PO (05:58)
[2022-06-16] MEDS ORDERED: PRED20TA PO (05:58)
== END 2022-06-16 06:05 | disposition home or self-care (01) ==
LOC: M ED 22:32
DX: J20.9 Acute bronchitis, unspecified (principal); J45.909 Unspecified asthma, uncomplicated; E78.5 Hyperlipidemia, unspecified; F12.10 Cannabis abuse, uncomplicated; Z87.891 Personal history of nicotine dependence; Z88.1 Allergy status to other antibiotic agents; Z88.6 Allergy status to analgesic agent; Z79.51 Long term (current) use of inhaled steroids; Z79.899 Other long term (current) drug therapy
CPT/HCPCS: 71046; 87631; 94640; 99285; J7512

== ENCOUNTER → 2022-09-28 | Outpatient (REF) ==
[~2022-09-28] MED LIST changes: +BENZ200C70 PO
== END ==
LOC: M LAB 12:21
PROVIDERS: ATTEND Nurse Practitioner Adult Health
DX: Z02.1 Encounter for pre-employment examination (principal)

== ENCOUNTER 2023-01-03 15:57 | Emergency (ER) | payer OTHER ==
[~2023-01-03] VITALS: Ht 170.2 cm; Wt 83.7 kg
[2023-01-03 15:58] VITALS: BP 168/96; TEMP 96.4; O2SAT 100
== END 2023-01-04 00:18 | disposition left against medical advice (07) ==
LOC: M ED 15:57
DX: R10.2 Pelvic and perineal pain (principal); Z53.21 Procedure and treatment not carried out due to patient leaving prior to being seen by health care provider

== ENCOUNTER 2023-05-19 17:06 | Emergency (ER) | payer OTHER ==
[~2023-05-19] VITALS: Ht 170.2 cm; Wt 78.1 kg
[~2023-05-19 17:06] MED LIST changes: +LORA-1041 PO; -LORA-674 PO
[2023-05-19] MEDS ORDERED: ONDANSETRON 4MG 2ML VIAL IV ONE (17:25)
[2023-05-19] MEDS ORDERED: MORPHINE 2 MG/ML 1ML VIAL IV ONE (17:25)
[2023-05-19] MEDS ORDERED: ISOVUE-370 76% 100ML VIAL As Ordered ONE (17:44)
[2023-05-19 17:48] LABS: BASO # 0.1 10^3/uL (0.0-0.2); BASO % 0.5 % (0.0-1.0); EOS # 0.4 10^3/uL (0.0-0.5); EOS % 3.3 % (0.0-3.0); HEMATOCRIT 40.1 % (36.0-47.0); HEMOGLOBIN 13.9 g/dl (12.0-15.5); LYMPH # 3.7 10^3/uL (1.5-5.0); LYMPH % 28.3 % (24.0-44.0); MEAN CORPUSCULAR HEMOGLOBIN 30.5 pg (27.0-33.0); MEAN CORPUSCULAR HGB CONC 34.7 g/dl (32.0-36.5); MEAN CORPUSCULAR VOLUME 88.1 fl (80.0-96.0); MONO # 0.8 10^3/uL (0.0-0.8); MONO % 6.2 % (2.0-8.0); NEUTROPHILS # 8.2 10^3/uL (1.5-8.5); NEUTROPHILS % 61.5 % (36.0-66.0); PLATELET COUNT, AUTOMATED 308 10^3/uL (150-450); RED BLOOD COUNT 4.55 10^6/uL (4.00-5.40); WHITE BLOOD COUNT 13.2 10^3/uL (4.0-10.0)
[2023-05-19 18:04] LABS: URINE PREG TEST NEGATIVE (NEGATIVE)
[2023-05-19] MEDS ORDERED: MORPHINE 4 MG/ML 1ML VIAL IV ONE (19:40)
[2023-05-19 20:37] LABS: RSV AMPLIFICATION NEGATIVE (NEGATIVE)
[2023-05-19] MEDS ORDERED: oxyCODONE 5MG TAB PO ONE (21:25)
[2023-05-19 22:15] VITALS: BP 128/74; TEMP 97.5; O2SAT 99
[2023-05-20 09:17] LABS: ALKALINE PHOSPHATASE 96 U/L (35-104); AST/SGOT 14 U/L (5-40)
[2023-05-20 09:18] LABS: ALBUMIN 4.2 G/DL (3.9-5.0); BILIRUBIN,DIRECT < 0.2 MG/DL (0.1-0.4); BILIRUBIN,TOTAL < 0.7 MG/DL (0.2-1.3); LIPASE 78 U/L (13-60); TOTAL PROTEIN 7.1 G/DL (6.3-8.2)
== END 2023-05-19 22:47 | disposition short-term general hospital (02) ==
LOC: M ED 17:06
DX: K86.89 Other specified diseases of pancreas (principal); K76.89 Other specified diseases of liver; N18.30 Chronic kidney disease, stage 3 unspecified; E78.5 Hyperlipidemia, unspecified; J44.9 Chronic obstructive pulmonary disease, unspecified; F17.200 Nicotine dependence, unspecified, uncomplicated; Z79.899 Other long term (current) drug therapy; Z88.1 Allergy status to other antibiotic agents; Z88.8 Allergy status to other drugs, medicaments and biological substances
CPT/HCPCS: 74177; 80047; 80076; 81001; 83690; 84703; 85025; 87631; 96374; 96375; 96376; 99284; J2405; Q9967

== ENCOUNTER 2023-07-02 05:48 | Inpatient (IN) | payer OTHER ==
[~2023-07-02] VITALS: Ht 170.2 cm; Wt 75.8 kg
[~2023-07-02 05:48] MED LIST changes: +FAMO20TA PO; +GABA-1171 PO; +MIRT-10; +ONDA-84 PO; +OXYC-517; +PROC10TA5 PO; +SERT-141 PO
[2023-07-02] MEDS ORDERED: MORPHINE 4 MG/ML 1ML VIAL IV ONE (06:05)
[2023-07-02] MEDS ORDERED: ONDANSETRON 4MG 2ML VIAL IV ONE (06:05)
[2023-07-02] MEDS ORDERED: NS 1,000 ML IV ONE ×2 (06:05→10:40)
[2023-07-02 06:21] LABS: BASO % 0.3 % (0.0-1.0); EOS # 0.2 10^3/uL (0.0-0.5); EOS % 1.8 % (0.0-3.0); HEMATOCRIT 35.5 % (36.0-47.0); HEMOGLOBIN 12.3 g/dl (12.0-15.5); LYMPH # 1.6 10^3/uL (1.5-5.0); LYMPH % 13.6 % (24.0-44.0); MEAN CORPUSCULAR HEMOGLOBIN 30.3 pg (27.0-33.0); MEAN CORPUSCULAR HGB CONC 34.6 g/dl (32.0-36.5); MEAN CORPUSCULAR VOLUME 87.4 fl (80.0-96.0); MONO # 0.7 10^3/uL (0.0-0.8); MONO % 5.7 % (2.0-8.0); NEUTROPHILS # 9.3 10^3/uL (1.5-8.5); NEUTROPHILS % 78.5 % (36.0-66.0); PLATELET COUNT, AUTOMATED 210 10^3/uL (150-450); RED BLOOD COUNT 4.06 10^6/uL (4.00-5.40); WHITE BLOOD COUNT 11.8 10^3/uL (4.0-10.0)
[2023-07-02 06:49] LABS: LIPASE 31 U/L (12-53)
[2023-07-02 06:51] LABS: ALKALINE PHOSPHATASE 120 U/L (46-116); ALT/SGPT 12 U/L (7.0-40); AST/SGOT 11 U/L (<34); BILIRUBIN,DIRECT 0.2 MG/DL (<0.4); BILIRUBIN,TOTAL 0.6 MG/DL (0.3-1.2); TOTAL PROTEIN 6.4 G/DL (5.7-8.2)
[2023-07-02 07:41] LABS: HCG, SERUM QUALITATIVE NEGATIVE (NEGATIVE)
[2023-07-02 07:43] LABS: BLOOD UREA NITROGEN 10 MG/DL (9-23); CALCIUM LEVEL 8.3 MG/DL (8.5-10.1); CARBON DIOXIDE LEVEL 23 MMOL/L (20-31); CHLORIDE LEVEL 101 MMOL/L (98-107); CREATININE FOR GFR 0.59 MG/DL (0.55-1.30); GLOMERULAR FILTRATION RATE > 60.0 (>58); GLUCOSE, FASTING 445 MG/DL (60-100); POTASSIUM SERUM 4.2 MMOL/L (3.5-5.1); SODIUM LEVEL 133 MMOL/L (136-145)
[2023-07-02] MEDS ORDERED: PROMETHAZINE 25MG/ML 1ML VIAL IV ONE (08:00)
[2023-07-02] MEDS ORDERED: HYDROMORPHONE HCL 0.5 MG/ 0.5 ML SYRINGE IV PRN (08:00)
[2023-07-02 08:30] LABS: HEMOGLOBIN A1c 8.4 % (4.0-6.0)
[2023-07-02] MEDS ORDERED: ISOVUE-370 76% 100ML VIAL As Ordered ONE (08:33)
[2023-07-02] MEDS ORDERED: MED REC IN PROGRESS XX SCH (10:35)
[2023-07-02] MEDS ORDERED: APIXABAN 5 MG TAB (ELIQUIS) PO SCH (10:40)
[2023-07-02] MEDS ORDERED: ONDANSETRON 4MG 2ML VIAL IV PRN (10:40)
[2023-07-02] MEDS ORDERED: NALOXONE INJ 0.4MG/1ML VIAL IV PRN (10:40)
[2023-07-02] MEDS ORDERED: EPIDURAL/PCA KEYS XX PRN (10:40)
[2023-07-02] MEDS ORDERED: MORPHINE 1MG/ML IN 0.9% NACL 100ML IV BAG IV PRN (10:40)
[2023-07-02] MEDS ORDERED: NS 1,000 ML IV SCH (10:40)
[2023-07-02] MEDS ORDERED: diphenhydrAMINE 50MG/ML VIAL IV PRN (10:40)
[2023-07-02] MEDS ORDERED: Juice Plus PO (10:46)
[2023-07-02] MEDS ORDERED: SERT-141 PO (10:46)
[2023-07-02] MEDS ORDERED: HOME MED LIST COMPLETE! XX SCH (10:55)
[2023-07-02] MEDS ORDERED: HYDROMORPHONE HCL 0.5 MG/ 0.5 ML SYRINGE IV ONE (11:05)
[2023-07-02 11:23] LABS: INR 1.2; PARTIAL THROMBOPLASTIN TIME 27.5 SECONDS (24.8-34.2); PROTHROMBIN TIME 14.9 SECONDS (12.5-14.5)
[2023-07-02] MEDS ORDERED: HEPARIN SOD (PORCINE) 5000UNITS/ML 1ML VIAL/SYRINGE IV PRN (11:40)
[2023-07-02 11:41] LABS: RSV AMPLIFICATION NEGATIVE (NEGATIVE)
[2023-07-02] MEDS ORDERED: DEXTROSE 50% 50ML SYRINGE IV PRN (12:05)
[2023-07-02] MEDS ORDERED: GLUCAGON INJ 1MG VIAL SC PRN (12:05)
[2023-07-02] MEDS ORDERED: GLUCOSE 4GM CHEW TABLET PO PRN (12:05)
[2023-07-02] MEDS: PROMETHAZINE 25MG/ML 1ML VIAL IV PRN ×2 (12:06→21:46)
[2023-07-02] MEDS: PERCOCET 5MG/325MG TAB PO PRN ×3 (12:06→16:52)
[2023-07-02] MEDS: NS 1,000 ML IV SCH ×2 (12:43→21:57)
[2023-07-02] MEDS ORDERED: LEVEMIR (INSULIN DETEMIR) 1 UNITS/0.01ML SC ONE (12:45)
[2023-07-02] MEDS ORDERED: HEPARIN SOD (PORCINE) 5000UNITS/ML 1ML VIAL/SYRINGE IV ONE (12:45)
[2023-07-02] MEDS: HEPARIN DRIP 25,000 UNITS in IV 1 EA IV SCH (14:23)
[2023-07-02 16:20] VITALS: BP 134/86; TEMP 98.6; O2SAT 98
[2023-07-02] MEDS: INSULIN LISPRO (NovoLOG) PER UNIT SC SCH ×3 (17:30→21:00)
[2023-07-02] MEDS: LEVEMIR (INSULIN DETEMIR) 1 UNITS/0.01ML SC SCH (21:49)
[2023-07-02 22:00] VITALS: BP 139/85; TEMP 97.6; O2SAT 99
[2023-07-02] MEDS ORDERED: ULTRACET TAB PO ONE (23:00)
[2023-07-02] MEDS ORDERED: PANTOPRAZOLE 40MG TAB (PROTONIX) PO ONE (23:00)
[2023-07-03] MEDS: PERCOCET 5MG/325MG TAB PO PRN ×3 (00:43→20:24)
[2023-07-03 04:00] LABS: BASO % 0.4 % (0.0-1.0); EOS # 0.3 10^3/uL (0.0-0.5); EOS % 4.7 % (0.0-3.0); HEMATOCRIT 29.4 % (36.0-47.0); LYMPH # 2.9 10^3/uL (1.5-5.0); MEAN CORPUSCULAR HEMOGLOBIN 30.3 pg (27.0-33.0); MEAN CORPUSCULAR HGB CONC 34.4 g/dl (32.0-36.5); MEAN CORPUSCULAR VOLUME 88.3 fl (80.0-96.0); MONO # 0.6 10^3/uL (0.0-0.8); MONO % 8.1 % (2.0-8.0); NEUTROPHILS # 3.1 10^3/uL (1.5-8.5); NEUTROPHILS % 44.5 % (36.0-66.0); PLATELET COUNT, AUTOMATED 162 10^3/uL (150-450); RED BLOOD COUNT 3.33 10^6/uL (4.00-5.40)
[2023-07-03 04:07] LABS: HEMOGLOBIN 10.1 g/dl (12.0-15.5)
[2023-07-03 04:30] LABS: ALBUMIN 2.4 G/DL (3.2-5.2); ALKALINE PHOSPHATASE 89 U/L (46-116); ALT/SGPT 12 U/L (7.0-40); AST/SGOT 30 U/L (<34); BILIRUBIN,TOTAL 0.2 MG/DL (0.3-1.2); BLOOD UREA NITROGEN < 5 MG/DL (9-23); CALCIUM LEVEL 7.7 MG/DL (8.5-10.1); CARBON DIOXIDE LEVEL 24 MMOL/L (20-31); CHLORIDE LEVEL 110 MMOL/L (98-107); CREATININE FOR GFR 0.55 MG/DL (0.55-1.30); GLOMERULAR FILTRATION RATE > 60.0 (>58); GLUCOSE, FASTING 131 MG/DL (60-100); LIPASE 20 U/L (12-53); MAGNESIUM LEVEL 1.6 MG/DL (1.8-2.4); POTASSIUM SERUM 4.4 MMOL/L (3.5-5.1); SODIUM LEVEL 142 MMOL/L (136-145); TOTAL PROTEIN 5.2 G/DL (5.7-8.2)
[2023-07-03 06:00] VITALS: BP 147/77; TEMP 97.9; O2SAT 98
[2023-07-03] MEDS: NS 1,000 ML IV SCH ×2 (08:06→18:31)
[2023-07-03] MEDS: INSULIN LISPRO (NovoLOG) PER UNIT SC SCH ×7 (09:17→20:15)
[2023-07-03] MEDS: MAGNESIUM OXIDE 400MG TAB (MAG-OX) PO SCH ×2 (09:18→20:23)
[2023-07-03] MEDS: HEPARIN DRIP 25,000 UNITS in IV 1 EA IV SCH (09:36)
[2023-07-03] MEDS ORDERED: MORPHINE 2 MG/ML 1ML VIAL IV PRN (09:55)
[2023-07-03] MEDS ORDERED: PERCOCET 5MG/325MG TAB PO PRN (09:55)
[2023-07-03] MEDS ORDERED: PERCOCET 5MG/325MG TAB PO ONE (09:55)
[2023-07-03] MEDS ORDERED: MAG SULF 1GM/100ML (MAG RUN) 1 GM in IV 1 EA IV ONE (10:00)
[2023-07-03 14:07] VITALS: BP 141/92; TEMP 97.8; O2SAT 97
[2023-07-03 18:19] LABS: INR 1.16; PROTHROMBIN TIME 14.5 SECONDS (12.5-14.5)
[2023-07-03 18:20] LABS: PARTIAL THROMBOPLASTIN TIME 70.9 SECONDS (24.8-34.2)
[2023-07-03 20:09] VITALS: BP 157/92; TEMP 97.9; O2SAT 99
[2023-07-03] MEDS: LEVEMIR (INSULIN DETEMIR) 1 UNITS/0.01ML SC SCH (20:23)
[2023-07-03 22:00] VITALS: BP 154/90; TEMP 97.6; O2SAT 99
[2023-07-04 01:14] LABS: INR 1.1; PROTHROMBIN TIME 13.9 SECONDS (12.5-14.5)
[2023-07-04 01:15] LABS: PARTIAL THROMBOPLASTIN TIME 61.4 SECONDS (24.8-34.2)
[2023-07-04] MEDS: PERCOCET 5MG/325MG TAB PO PRN (03:43)
[2023-07-04] MEDS: HEPARIN DRIP 25,000 UNITS in IV 1 EA IV SCH (04:40)
[2023-07-04 06:00] VITALS: BP 142/88; TEMP 97.1; O2SAT 96
[2023-07-04 06:24] LABS: BASO % 0.5 % (0.0-1.0); EOS # 0.3 10^3/uL (0.0-0.5); EOS % 3.6 % (0.0-3.0); HEMATOCRIT 31.8 % (36.0-47.0); HEMOGLOBIN 10.9 g/dl (12.0-15.5); LYMPH # 2.4 10^3/uL (1.5-5.0); LYMPH % 30.1 % (24.0-44.0); MEAN CORPUSCULAR HEMOGLOBIN 29.9 pg (27.0-33.0); MEAN CORPUSCULAR HGB CONC 34.3 g/dl (32.0-36.5); MEAN CORPUSCULAR VOLUME 87.4 fl (80.0-96.0); MONO # 0.6 10^3/uL (0.0-0.8); MONO % 7.1 % (2.0-8.0); NEUTROPHILS # 4.7 10^3/uL (1.5-8.5); NEUTROPHILS % 58.3 % (36.0-66.0); PLATELET COUNT, AUTOMATED 166 10^3/uL (150-450); RED BLOOD COUNT 3.64 10^6/uL (4.00-5.40); WHITE BLOOD COUNT 8.1 10^3/uL (4.0-10.0)
[2023-07-04 06:40] LABS: INR 1.14; PROTHROMBIN TIME 14.3 SECONDS (12.5-14.5)
[2023-07-04 06:42] LABS: PARTIAL THROMBOPLASTIN TIME 65.6 SECONDS (24.8-34.2)
[2023-07-04 07:00] LABS: LIPASE 21 U/L (12-53)
[2023-07-04 07:04] LABS: ALBUMIN 2.4 G/DL (3.2-5.2); ALKALINE PHOSPHATASE 98 U/L (46-116); ALT/SGPT 12 U/L (7.0-40); AST/SGOT 11 U/L (<34); BILIRUBIN,TOTAL 0.3 MG/DL (0.3-1.2); BLOOD UREA NITROGEN < 5 MG/DL (9-23); CALCIUM LEVEL 7.9 MG/DL (8.5-10.1); CARBON DIOXIDE LEVEL 24 MMOL/L (20-31); CHLORIDE LEVEL 109 MMOL/L (98-107); CREATININE FOR GFR 0.57 MG/DL (0.55-1.30); GLOMERULAR FILTRATION RATE > 60.0 (>58); GLUCOSE, FASTING 112 MG/DL (60-100); MAGNESIUM LEVEL 1.7 MG/DL (1.8-2.4); POTASSIUM SERUM 3.6 MMOL/L (3.5-5.1); SODIUM LEVEL 140 MMOL/L (136-145); TOTAL PROTEIN 5.3 G/DL (5.7-8.2)
[2023-07-04 08:22] VITALS: BP 141/89; O2SAT 98
[2023-07-04] MEDS: MAGNESIUM OXIDE 400MG TAB (MAG-OX) PO SCH (08:43)
[2023-07-04] MEDS: MAG SULF 1GM/100ML (MAG RUN) 1 GM in IV 1 EA IV SCH ×2 (08:51→10:59)
[2023-07-04] MEDS: INSULIN LISPRO (NovoLOG) PER UNIT SC SCH ×2 (08:57→13:09)
[2023-07-04 09:20] LABS: CK-MB VALUE MASS < 1.0 NG/ML (<3.6)
[2023-07-04 09:21] LABS: CPK CREATINE PHOSPHOKINASE 29 U/L (34-145); MB/CK RELATIVE INDEX 3.44 (< OR =4)
[2023-07-04] MEDS: PROMETHAZINE 25MG/ML 1ML VIAL IV PRN (10:07)
[2023-07-04] MEDS ORDERED: PANTOPRAZOLE 40MG VIAL IV SCH (11:00)
[2023-07-04] MEDS ORDERED: BLOOKIT21 XX (11:53)
[2023-07-04] MEDS ORDERED: PEN-308 SC (11:53)
[2023-07-04] MEDS ORDERED: MAGN400T2 PO (11:53)
[2023-07-04] MEDS ORDERED: ALCOPAD25 TOP (11:53)
[2023-07-04] MEDS ORDERED: ADME100I2 SC (11:53)
[2023-07-04] MEDS ORDERED: GLUC1TES2 XX (11:53)
[2023-07-04] MEDS ORDERED: LANC30MI XX (11:53)
[2023-07-04] MEDS ORDERED: INSU100I48 SQ (11:53)
[2023-07-04] MEDS ORDERED: ELIQ5TAB4 PO (11:53)
[2023-07-04] MEDS ORDERED: INSULIN LISPRO (NovoLOG) PER UNIT SC SCH (12:00)
[2023-07-04] MEDS ORDERED: FAMO20TA PO (12:02)
[2023-07-04] MEDS ORDERED: OXYC-517 PO (12:02)
== END 2023-07-04 13:30 | disposition home or self-care (01) | DRG 281 ==
LOC: M ED 05:48 → M ED INP 05:49 → OBSVTOIN 11:36 → ENRESERV 14:16 → M MS4PR 16:20
PROVIDERS: ADMIT General Practice; ATTEND General Practice
DX: C25.9 Malignant neoplasm of pancreas, unspecified (principal); I81 Portal vein thrombosis; C78.7 Secondary malignant neoplasm of liver and intrahepatic bile duct; R56.9 Unspecified convulsions; G89.3 Neoplasm related pain (acute) (chronic); E66.9 Obesity, unspecified; F10.10 Alcohol abuse, uncomplicated; F17.200 Nicotine dependence, unspecified, uncomplicated; E78.2 Mixed hyperlipidemia; F12.90 Cannabis use, unspecified, uncomplicated

== ENCOUNTER 2023-08-04 19:35 | Emergency (ER) | payer OTHER ==
[~2023-08-04] VITALS: Ht 165.1 cm; Wt 75.8 kg
[~2023-08-04 19:35] MED LIST changes: +ADME100I2 SC; +ALCOPAD25 TOP; +BLOOKIT21 XX; +CIPR500T39 PO; +ELIQ5TAB PO; +ELIQ5TAB4 PO; +FAMO1TAB11 PO; +GLUC1TES2 XX; +INSU100I48 SQ; +Juice Plus PO; +LANC30MI XX; +MAGN400T2 PO; +MAGN400T35 PO; +METR-265 PO; +OXYC-517 PO; +PEN-308 SC; +PERC10TA26 PO
[2023-08-04] MEDS ORDERED: ACETAMINOPHEN *IV* 1,000 MG in IV 1 EA IV ONE (19:45)
[2023-08-04 20:01] LABS: BASO % 0.3 % (0.0-1.0); EOS % 0.9 % (0.0-3.0); HEMATOCRIT 29.8 % (36.0-47.0); HEMOGLOBIN 10.1 g/dl (12.0-15.5); LYMPH # 0.2 10^3/uL (1.5-5.0); LYMPH % 6.1 % (24.0-44.0); MEAN CORPUSCULAR HEMOGLOBIN 29.8 pg (27.0-33.0); MEAN CORPUSCULAR HGB CONC 33.9 g/dl (32.0-36.5); MEAN CORPUSCULAR VOLUME 87.9 fl (80.0-96.0); MONO # 0.3 10^3/uL (0.0-0.8); MONO % 7.2 % (2.0-8.0); NEUTROPHILS % 85.2 % (36.0-66.0); PLATELET COUNT, AUTOMATED 115 10^3/uL (150-450); RED BLOOD COUNT 3.39 10^6/uL (4.00-5.40); WHITE BLOOD COUNT 3.5 10^3/uL (4.0-10.0)
[2023-08-04 20:13] LABS: INR 1.36; PARTIAL THROMBOPLASTIN TIME 32.3 SECONDS (24.8-34.2); PROTHROMBIN TIME 16.3 SECONDS (12.5-14.5)
[2023-08-04 20:34] LABS: AMYLASE 36 U/L (30-118)
[2023-08-04 20:35] LABS: ALBUMIN 2.9 G/DL (3.2-5.2); ALKALINE PHOSPHATASE 95 U/L (46-116); ALT/SGPT 19 U/L (7.0-40); AST/SGOT 18 U/L (<34); BILIRUBIN,DIRECT 0.1 MG/DL (<0.4); BILIRUBIN,TOTAL 0.3 MG/DL (0.3-1.2); BLOOD UREA NITROGEN 8 MG/DL (9-23); CALCIUM LEVEL 8.3 MG/DL (8.5-10.1); CARBON DIOXIDE LEVEL 20 MMOL/L (20-31); CHLORIDE LEVEL 108 MMOL/L (98-107); CREATININE FOR GFR 0.59 MG/DL (0.55-1.30); GLOMERULAR FILTRATION RATE > 60.0 (>58); GLUCOSE, FASTING 191 MG/DL (60-100); POTASSIUM SERUM 3.7 MMOL/L (3.5-5.1); SODIUM LEVEL 137 MMOL/L (136-145); TOTAL PROTEIN 5.6 G/DL (5.7-8.2)
[2023-08-04] MEDS ORDERED: MORPHINE 4 MG/ML 1ML VIAL IV ONE (20:35)
[2023-08-04] MEDS ORDERED: NS 2,270 ML in IV 1 EA IV ONE (20:35)
[2023-08-04] MEDS ORDERED: ALPRAZolam 0.5 MG TAB PO ONE (20:35)
[2023-08-04] MEDS ORDERED: OSELTAMIVIR PHOSPHATE 75 MG CAP (TAMIFLU) PO ONE (22:35)
[2023-08-04 23:44] LABS: APPEARANCE, URINE CLEAR (CLEAR); BACTERIA, URINE AUTO 1+ (NEGATIVE); BILIRUBIN, URINE AUTO NEGATIVE (NEGATIVE); BLOOD, URINE BLOOD NEGATIVE (NEGATIVE); COLOR, URINE YELLOW (YELLOW); GLUCOSE, URINE (UA) AUTO NEGATIVE (NEGATIVE); KETONE, URINE AUTO NEGATIVE (NEGATIVE); LEUKOCYTE ESTERASE, URINE AUTO NEGATIVE (NEGATIVE); NITRITE, URINE AUTO NEGATIVE (NEGATIVE); PROTEIN, URINE AUTO NEGATIVE (NEGATIVE); RBC, URINE AUTO 0 /HPF (0-3); SPECIFIC GRAVITY URINE AUTO 1.012 (1.002-1.035); SQUAMOUS EPITHELIAL CELL UR AU 1 /HPF (0-6); UROBILINOGEN, URINE AUTO 0.2 mg/dL (0.0-2.0); WBC, URINE AUTO 0 /HPF (0-3)
[2023-08-04] MEDS ORDERED: MORPHINE 2 MG/ML 1ML VIAL IV ONE (23:45)
[2023-08-05 00:30] VITALS: BP 117/66
[2023-08-05] MEDS ORDERED: OSEL75CA PO (00:32)
[2023-08-05 00:38] VITALS: O2SAT 97
[2023-08-05 00:39] VITALS: TEMP 99.3
== END 2023-08-05 00:40 | disposition home or self-care (01) ==
LOC: EDBD 19:35 → M ED 19:35 → EDSEX 19:35 → M ED 08-05 00:40
DX: J09.X9 Influenza due to identified novel influenza A virus with other manifestations (principal); R53.1 Weakness; E11.9 Type 2 diabetes mellitus without complications; Z79.4 Long term (current) use of insulin; F32.A Depression, unspecified; Z88.1 Allergy status to other antibiotic agents; Z88.8 Allergy status to other drugs, medicaments and biological substances; Z79.899 Other long term (current) drug therapy; Z79.891 Long term (current) use of opiate analgesic
CPT/HCPCS: 71045; 80047; 80048; 80076; 81001; 82150; 83605; 84145; 85025; 85610; 85730; 86140; 86850; 86900; 86901; 87040; 87086; 87486; 87581; 87633; 87798; 93041; 94760; 96361; 96365; 96375; 99285; J0131

== ENCOUNTER → 2023-08-17 | Outpatient (CLI) | payer OTHER ==
[~2023-08-17] VITALS: Ht 170.2 cm; Wt 73.2 kg
[~2023-08-17] MED LIST changes: +FLUO20CA22 PO; +MORP-69 PO; +MORP15TA2 PO; +ONDA4TAB6 PO; +OSEL75CA PO; +OXYC-1 PO; +XANA0.5T PO
[2023-08-17 14:38] VITALS: BP 142/89; O2SAT 97
== END ==
LOC: M PAL 14:03
PROVIDERS: ATTEND Nurse Practitioner Adult Health
DX: G89.3 Neoplasm related pain (acute) (chronic) (principal); C25.8 Malignant neoplasm of overlapping sites of pancreas; C78.7 Secondary malignant neoplasm of liver and intrahepatic bile duct; R11.0 Nausea; F41.9 Anxiety disorder, unspecified; F32.A Depression, unspecified; Z51.5 Encounter for palliative care; Z79.01 Long term (current) use of anticoagulants; Z79.4 Long term (current) use of insulin; Z79.891 Long term (current) use of opiate analgesic; Z79.899 Other long term (current) drug therapy; Z88.1 Allergy status to other antibiotic agents; Z88.8 Allergy status to other drugs, medicaments and biological substances; Z90.710 Acquired absence of both cervix and uterus; Z92.21 Personal history of antineoplastic chemotherapy

== ENCOUNTER → 2023-08-24 | Outpatient (CLI) | payer OTHER ==
[~2023-08-24] VITALS: Ht 170.2 cm; Wt 72.8 kg
[2023-08-24 08:10] VITALS: BP 140/101; O2SAT 98
[2023-08-24 08:50] VITALS: BP 124/90
== END ==
LOC: M PAL 07:44
PROVIDERS: ATTEND Nurse Practitioner Adult Health
DX: G89.3 Neoplasm related pain (acute) (chronic) (principal); C25.8 Malignant neoplasm of overlapping sites of pancreas; C78.7 Secondary malignant neoplasm of liver and intrahepatic bile duct; C78.00 Secondary malignant neoplasm of unspecified lung; R11.0 Nausea; F41.9 Anxiety disorder, unspecified; F32.A Depression, unspecified; Z66 Do not resuscitate; Z51.5 Encounter for palliative care; Z79.01 Long term (current) use of anticoagulants; Z79.4 Long term (current) use of insulin; Z79.891 Long term (current) use of opiate analgesic; Z79.899 Other long term (current) drug therapy; Z88.1 Allergy status to other antibiotic agents; Z88.8 Allergy status to other drugs, medicaments and biological substances; Z90.710 Acquired absence of both cervix and uterus; Z92.21 Personal history of antineoplastic chemotherapy

== ENCOUNTER 2023-09-08 17:58 | Emergency (ER) | payer OTHER ==
[~2023-09-08] VITALS: Ht 170.2 cm; Wt 69.7 kg
[2023-09-08 17:59] VITALS: BP 118/76; TEMP 96.3; O2SAT 96
[2023-09-08] MEDS: SODIUM CHLORIDE 0.9% INJ 10 ML SYR IV ONE (19:34)
== END 2023-09-08 21:28 | disposition home or self-care (01) ==
LOC: M ED 17:58
DX: Z45.2 Encounter for adjustment and management of vascular access device (principal); E78.5 Hyperlipidemia, unspecified; N18.30 Chronic kidney disease, stage 3 unspecified; F41.9 Anxiety disorder, unspecified; F32.A Depression, unspecified; R91.8 Other nonspecific abnormal finding of lung field; G43.909 Migraine, unspecified, not intractable, without status migrainosus; C25.9 Malignant neoplasm of pancreas, unspecified; Z79.01 Long term (current) use of anticoagulants; Z88.8 Allergy status to other drugs, medicaments and biological substances; Z79.899 Other long term (current) drug therapy; Z79.4 Long term (current) use of insulin

== ENCOUNTER 2023-09-17 23:07 | Inpatient (IN) | payer OTHER ==
[~2023-09-17] VITALS: Ht 170.2 cm; Wt 67.5 kg
[2023-09-18] MEDS: PROMETHAZINE 25MG/ML 1ML VIAL IV ONE (00:48)
[2023-09-18] MEDS: MORPHINE 4 MG/ML 1ML VIAL IV PRN (00:49)
[2023-09-18 00:54] LABS: BASO % 0.8 % (0.0-1.0); EOS # 0.1 10^3/uL (0.0-0.5); EOS % 2.3 % (0.0-3.0); HEMATOCRIT 31.4 % (36.0-47.0); HEMOGLOBIN 10.7 g/dl (12.0-15.5); LYMPH # 1.7 10^3/uL (1.5-5.0); LYMPH % 62.9 % (24.0-44.0); MEAN CORPUSCULAR HEMOGLOBIN 30.1 pg (27.0-33.0); MEAN CORPUSCULAR HGB CONC 34.1 g/dl (32.0-36.5); MEAN CORPUSCULAR VOLUME 88.5 fl (80.0-96.0); MONO # 0.4 10^3/uL (0.0-0.8); PLATELET COUNT, AUTOMATED 103 10^3/uL (150-450); RED BLOOD COUNT 3.55 10^6/uL (4.00-5.40); WHITE BLOOD COUNT 2.6 10^3/uL (4.0-10.0)
[2023-09-18 01:07] LABS: INR 1.24; PROTHROMBIN TIME 15.2 SECONDS (12.5-14.5)
[2023-09-18 01:08] LABS: PARTIAL THROMBOPLASTIN TIME 30.2 SECONDS (24.8-34.2)
[2023-09-18 01:16] LABS: LIPASE 23 U/L (12-53)
[2023-09-18 01:19] LABS: ALBUMIN 3.3 G/DL (3.2-5.2); ALKALINE PHOSPHATASE 99 U/L (46-116); ALT/SGPT 16 U/L (7.0-40); AST/SGOT 16 U/L (<34); BILIRUBIN,DIRECT 0.1 MG/DL (<0.4); BILIRUBIN,TOTAL 0.4 MG/DL (0.3-1.2); BLOOD UREA NITROGEN 13 MG/DL (9-23); CALCIUM LEVEL 8.9 MG/DL (8.5-10.1); CARBON DIOXIDE LEVEL 22 MMOL/L (20-31); CHLORIDE LEVEL 110 MMOL/L (98-107); CREATININE FOR GFR 0.69 MG/DL (0.55-1.30); GLOMERULAR FILTRATION RATE > 60.0 (>58); GLUCOSE, FASTING 140 MG/DL (60-100); POTASSIUM SERUM 3.6 MMOL/L (3.5-5.1); SODIUM LEVEL 141 MMOL/L (136-145); TOTAL PROTEIN 6.4 G/DL (5.7-8.2)
[2023-09-18 01:43] LABS: NEUTROPHILS # 0.5 10^3/uL (1.5-8.5)
[2023-09-18] MEDS ORDERED: ISOVUE-370 76% 100ML VIAL As Ordered ONE (01:47)
[2023-09-18 03:56] LABS: RSV AMPLIFICATION NEGATIVE (NEGATIVE)
[2023-09-18] MEDS ORDERED: FAMO20TA4 PO (04:20)
[2023-09-18] MEDS ORDERED: HOME MED LIST COMPLETE! XX SCH (04:25)
[2023-09-18] MEDS: NS 1,000 ML IV SCH (04:35)
[2023-09-18 06:01] VITALS: BP 121/83; TEMP 97.9; O2SAT 100
[2023-09-18] MEDS ORDERED: GLUCOSE 4GM CHEW TABLET PO PRN (06:55)
[2023-09-18] MEDS ORDERED: GLUCAGON INJ 1MG VIAL SC PRN (06:55)
[2023-09-18] MEDS ORDERED: DEXTROSE 50% 50ML SYRINGE IV PRN (06:55)
[2023-09-18] MEDS: PROMETHAZINE 25MG/ML 1ML VIAL IV PRN (07:01)
[2023-09-18] MEDS: MORPHINE 2 MG/ML 1ML VIAL IV PRN (07:02)
[2023-09-18] MEDS ORDERED: CEPACOL LOZENGE PO PRN (07:10)
[2023-09-18] MEDS ORDERED: CHLORASEPTIC SPRAY MT PRN (07:55)
[2023-09-18 08:00] VITALS: BP 136/86; TEMP 98.4; O2SAT 99
[2023-09-18] MEDS: GABAPENTIN 300 MG CAP PO SCH (08:43)
[2023-09-18] MEDS: APIXABAN 5 MG TAB (ELIQUIS) PO SCH (08:43)
[2023-09-18] MEDS: FLUoxetine 20MG CAP PO SCH (08:45)
[2023-09-18] MEDS: FAMOTIDINE 20 MG TAB PO SCH (08:45)
[2023-09-18] MEDS: MORPHINE 15 MG SA TAB PO SCH (08:45)
[2023-09-18] MEDS: CHLORASEPTIC SPRAY MT SCH (09:00)
[2023-09-18] MEDS: HYDROMORPHONE HCL 0.5 MG/ 0.5 ML SYRINGE IV PRN (10:13)
[2023-09-18] MEDS: INSULIN LISPRO (NovoLOG) PER UNIT SC SCH (12:00)
[2023-09-18 14:00] VITALS: BP 113/66; TEMP 98.1; O2SAT 99
[2023-09-18] MEDS ORDERED: NYST-38 SS (17:21)
[2023-09-18] MEDS ORDERED: CHLORSP MT (17:22)
[2023-09-18] MEDS ORDERED: LEVEMIR (INSULIN DETEMIR) 1 UNITS/0.01ML SC SCH (21:00)
[2023-09-19] MEDS ORDERED: GABA-282 PO (09:17)
[2023-09-19] MEDS ORDERED: FLUO20CA22 PO (09:17)
[2023-09-19] MEDS ORDERED: PROC10TA5 PO (09:17)
== END 2023-09-18 17:51 | disposition home or self-care (01) | DRG 247 ==
LOC: M ED 23:07 → M ED INP 09-18 04:32 → ENRESERV 09-18 04:52 → M MSPAV 09-18 05:52
PROVIDERS: ADMIT Family Medicine; ATTEND Student in an Organized Health Care Education/Training Program
DX: K56.609 Unspecified intestinal obstruction, unspecified as to partial versus complete obstruction (principal); C78.7 Secondary malignant neoplasm of liver and intrahepatic bile duct; R56.9 Unspecified convulsions; I82.890 Acute embolism and thrombosis of other specified veins; C25.9 Malignant neoplasm of pancreas, unspecified; E66.9 Obesity, unspecified; F32.A Depression, unspecified; E78.2 Mixed hyperlipidemia; J45.20 Mild intermittent asthma, uncomplicated; G89.3 Neoplasm related pain (acute) (chronic); F41.0 Panic disorder [episodic paroxysmal anxiety]; F17.210 Nicotine dependence, cigarettes, uncomplicated; Z90.49 Acquired absence of other specified parts of digestive tract; Z90.79 Acquired absence of other genital organ(s); E11.9 Type 2 diabetes mellitus without complications; Z79.01 Long term (current) use of anticoagulants; Z79.4 Long term (current) use of insulin; Z79.891 Long term (current) use of opiate analgesic; Z79.899 Other long term (current) drug therapy; Z88.8 Allergy status to other drugs, medicaments and biological substances; Z20.822 Contact with and (suspected) exposure to COVID-19; Z66 Do not resuscitate

== ENCOUNTER → 2023-09-19 | Outpatient (CLI) | payer OTHER ==
[~2023-09-19] VITALS: Ht 170.2 cm; Wt 67.5 kg
[~2023-09-19] MED LIST changes: +CHLORSP MT; +FAMO20TA4 PO; +NYST-38 SS
[2023-09-19 08:46] VITALS: BP 118/76; O2SAT 99
== END ==
LOC: M PAL 08:30
PROVIDERS: ATTEND Nurse Practitioner Adult Health
DX: G89.3 Neoplasm related pain (acute) (chronic) (principal); G62.0 Drug-induced polyneuropathy; C25.8 Malignant neoplasm of overlapping sites of pancreas; C78.7 Secondary malignant neoplasm of liver and intrahepatic bile duct; C78.00 Secondary malignant neoplasm of unspecified lung; F41.9 Anxiety disorder, unspecified; F32.A Depression, unspecified; Z66 Do not resuscitate; Z51.5 Encounter for palliative care; Z79.01 Long term (current) use of anticoagulants; Z79.4 Long term (current) use of insulin; Z79.891 Long term (current) use of opiate analgesic; Z79.899 Other long term (current) drug therapy; Z88.1 Allergy status to other antibiotic agents; Z88.8 Allergy status to other drugs, medicaments and biological substances; Z90.710 Acquired absence of both cervix and uterus; Z92.21 Personal history of antineoplastic chemotherapy; K21.9 Gastro-esophageal reflux disease without esophagitis

== ENCOUNTER 2023-10-04 07:04 | Emergency (ER) | payer OTHER ==
[~2023-10-04] VITALS: Ht 170.2 cm; Wt 67.3 kg
[~2023-10-04 07:04] MED LIST changes: +ACYC1TAB PO
[2023-10-04] MEDS: NS 1,000 ML IV ONE (10:19)
[2023-10-04] MEDS: ONDANSETRON 4MG 2ML VIAL IV ONE (10:19)
[2023-10-04 10:27] LABS: BASO % 0.3 % (0.0-1.0); EOS % 0.3 % (0.0-3.0); HEMATOCRIT 30.4 % (36.0-47.0); HEMOGLOBIN 10.2 g/dl (12.0-15.5); LYMPH # 1.4 10^3/uL (1.5-5.0); LYMPH % 37.6 % (24.0-44.0); MEAN CORPUSCULAR HEMOGLOBIN 30.2 pg (27.0-33.0); MEAN CORPUSCULAR HGB CONC 33.6 g/dl (32.0-36.5); MEAN CORPUSCULAR VOLUME 89.9 fl (80.0-96.0); MONO # 0.1 10^3/uL (0.0-0.8); MONO % 2.4 % (2.0-8.0); NEUTROPHILS # 2.2 10^3/uL (1.5-8.5); NEUTROPHILS % 58.9 % (36.0-66.0); RED BLOOD COUNT 3.38 10^6/uL (4.00-5.40); WHITE BLOOD COUNT 3.7 10^3/uL (4.0-10.0)
[2023-10-04 10:43] LABS: BLOOD UREA NITROGEN 12 MG/DL (9-23); CALCIUM LEVEL 8.1 MG/DL (8.5-10.1); CARBON DIOXIDE LEVEL 24 MMOL/L (20-31); CHLORIDE LEVEL 106 MMOL/L (98-107); CREATININE FOR GFR 0.74 MG/DL (0.55-1.30); GLOMERULAR FILTRATION RATE > 60.0 (>58); GLUCOSE, FASTING 123 MG/DL (60-100); POTASSIUM SERUM 4.1 MMOL/L (3.5-5.1); SODIUM LEVEL 136 MMOL/L (136-145)
[2023-10-04 11:43] LABS: LIPASE 19 U/L (12-53)
[2023-10-04 11:45] LABS: ALBUMIN 3.1 G/DL (3.2-5.2); ALKALINE PHOSPHATASE 97 U/L (46-116); ALT/SGPT 26 U/L (7.0-40); AST/SGOT 19 U/L (<34); BILIRUBIN,DIRECT 0.2 MG/DL (<0.4); BILIRUBIN,TOTAL 0.5 MG/DL (0.3-1.2); TOTAL PROTEIN 5.8 G/DL (5.7-8.2)
[2023-10-04] MEDS: MORPHINE 4 MG/ML 1ML VIAL IV ONE (11:53)
[2023-10-04] MEDS: PROMETHAZINE 25MG/ML 1ML VIAL IM ONE (11:54)
[2023-10-04] MEDS: SODIUM CHLORIDE 0.9% INJ 10 ML SYR IV PRN (13:04)
[2023-10-04] MEDS ORDERED: PEPT262S PO (14:08)
[2023-10-04] MEDS ORDERED: MORP15TA2 PO (14:08)
[2023-10-04] MEDS ORDERED: ADME100I2 SC (14:08)
[2023-10-04] MEDS ORDERED: ALPR0.5T3 PO (14:08)
[2023-10-04] MEDS ORDERED: FLUO20CA22 PO (14:08)
[2023-10-04] MEDS ORDERED: GABA-282 PO (14:08)
[2023-10-04] MEDS ORDERED: ONDA-83 PO ×2 (14:08)
[2023-10-04] MEDS ORDERED: MORP-69 PO (14:08)
[2023-10-04] MEDS ORDERED: PROC10TA5 PO (14:08)
[2023-10-04] MEDS ORDERED: THERTAB52 PO (14:08)
[2023-10-04] MEDS ORDERED: HOME MED LIST COMPLETE! XX SCH (14:15)
[2023-10-04 14:40] VITALS: BP 112/76; TEMP 99; O2SAT 100
== END 2023-10-04 14:44 | disposition home or self-care (01) ==
LOC: EDBD 07:04 → M ED 07:04
DX: G89.3 Neoplasm related pain (acute) (chronic) (principal); R11.0 Nausea; C25.9 Malignant neoplasm of pancreas, unspecified; C78.00 Secondary malignant neoplasm of unspecified lung; C78.7 Secondary malignant neoplasm of liver and intrahepatic bile duct; Z92.21 Personal history of antineoplastic chemotherapy; E78.5 Hyperlipidemia, unspecified; R56.9 Unspecified convulsions; F10.10 Alcohol abuse, uncomplicated; F17.200 Nicotine dependence, unspecified, uncomplicated; Z79.01 Long term (current) use of anticoagulants; Z79.899 Other long term (current) drug therapy; Z88.1 Allergy status to other antibiotic agents; Z88.8 Allergy status to other drugs, medicaments and biological substances
CPT/HCPCS: 80048; 80076; 83690; 85025; 96361; 96372; 96374; 96375; 99284; J2405; J2550

== ENCOUNTER → 2023-10-17 | Outpatient (CLI) | payer OTHER ==
[~2023-10-17] MED LIST changes: +ALPR0.5T3 PO; +GASTROGRAFIN SOLUTION 30ML As Ordered ONE; +ISOVUE-370 76% 100ML VIAL As Ordered ONE; +LOMO2.5T PO; +OLAN1TAB16 PO; +ONDA-83 PO; +PEPT262S PO; +THERTAB52 PO
== END ==
LOC: M RAD 14:30
PROVIDERS: ATTEND Nurse Practitioner
DX: C25.1 Malignant neoplasm of body of pancreas (principal); K76.0 Fatty (change of) liver, not elsewhere classified; R59.0 Localized enlarged lymph nodes; C78.7 Secondary malignant neoplasm of liver and intrahepatic bile duct
CPT/HCPCS: 71260; 74177; Q9963; Q9967

== ENCOUNTER 2023-10-18 01:55 | Emergency (ER) | payer OTHER ==
[~2023-10-18] VITALS: Ht 165.1 cm; Wt 59.1 kg
[~2023-10-18 01:55] MED LIST changes: -GASTROGRAFIN SOLUTION 30ML As Ordered ONE; -ISOVUE-370 76% 100ML VIAL As Ordered ONE
[2023-10-18 02:05] VITALS: BP 142/74; TEMP 97.8; O2SAT 98
[2023-10-18] MEDS ORDERED: ONDA-83 PO (08:27)
== END 2023-10-18 02:55 | disposition left against medical advice (07) ==
LOC: M ED 01:55
DX: Z53.21 Procedure and treatment not carried out due to patient leaving prior to being seen by health care provider (principal)

== ENCOUNTER → 2023-10-31 | Outpatient (CLI) | payer OTHER | LOC: M PAL 07:56 | PROVIDERS: ATTEND Nurse Practitioner Family | DX: G89.3 Neoplasm related pain (acute) (chronic) (principal); C25.8 Malignant neoplasm of overlapping sites of pancreas; F41.9 Anxiety disorder, unspecified; R11.0 Nausea; R63.0 Anorexia; Z66 Do not resuscitate; R53.83 Other fatigue; Z51.5 Encounter for palliative care; Z79.01 Long term (current) use of anticoagulants; Z79.4 Long term (current) use of insulin; Z79.891 Long term (current) use of opiate analgesic; Z79.899 Other long term (current) drug therapy; Z88.1 Allergy status to other antibiotic agents; Z88.8 Allergy status to other drugs, medicaments and biological substances; Z90.710 Acquired absence of both cervix and uterus; Z92.21 Personal history of antineoplastic chemotherapy ==

== ENCOUNTER 2023-11-05 21:03 | Observation (INO) | payer OTHER ==
[~2023-11-05] VITALS: Ht 170.2 cm; Wt 66.1 kg
[2023-11-05] MEDS: OLANZapine 5 MG TAB PO SCH (21:00)
[2023-11-05 21:45] LABS: BASO % 0.5 % (0.0-1.0); EOS # 0.2 10^3/uL (0.0-0.5); EOS % 2.4 % (0.0-3.0); HEMATOCRIT 30.7 % (36.0-47.0); LYMPH # 1.9 10^3/uL (1.5-5.0); LYMPH % 23.1 % (24.0-44.0); MEAN CORPUSCULAR HEMOGLOBIN 30.3 pg (27.0-33.0); MEAN CORPUSCULAR HGB CONC 32.6 g/dl (32.0-36.5); MONO # 0.5 10^3/uL (0.0-0.8); NEUTROPHILS # 5.6 10^3/uL (1.5-8.5); NEUTROPHILS % 67.6 % (36.0-66.0); PLATELET COUNT, AUTOMATED 258 10^3/uL (150-450); WHITE BLOOD COUNT 8.2 10^3/uL (4.0-10.0)
[2023-11-05] MEDS: NS 500 ML IV ONE (21:55)
[2023-11-05] MEDS: NS 1,000 ML IV ONE (22:14)
[2023-11-05] MEDS: ONDANSETRON 4MG 2ML VIAL IV ONE (22:14)
[2023-11-05] MEDS: MORPHINE 4 MG/ML 1ML VIAL IV ONE (22:14)
[2023-11-05 22:19] LABS: ALBUMIN 2.5 G/DL (3.2-5.2); BILIRUBIN,DIRECT 0.1 MG/DL (<0.4); BILIRUBIN,TOTAL 0.4 MG/DL (0.3-1.2); TOTAL PROTEIN 5.5 G/DL (5.7-8.2)
[2023-11-05] MEDS: PROMETHAZINE 25MG/ML 1ML VIAL IV ONE (23:35)
[2023-11-06] MEDS: MORPHINE 4 MG/ML 1ML VIAL IV ONE (00:09)
[2023-11-06] MEDS: HALOPERIDOL 5MG/ML 1ML VIAL IV ONE (01:39)
[2023-11-06] MEDS ORDERED: PERCOCET 5MG/325MG TAB PO PRN ×2 (02:30)
[2023-11-06] MEDS ORDERED: MOM 30ML SUSPENSION UDC PO PRN (02:30)
[2023-11-06] MEDS ORDERED: GLUCOSE 4GM CHEW TABLET PO PRN (02:30)
[2023-11-06] MEDS ORDERED: GLUCAGON INJ 1MG VIAL SC PRN (02:30)
[2023-11-06] MEDS ORDERED: MAALOX 30 ML SUSP *UDC PO PRN (02:30)
[2023-11-06] MEDS ORDERED: DEXTROSE 50% 50ML SYRINGE IV PRN (02:30)
[2023-11-06] MEDS ORDERED: ACETAMINOPHEN TAB 650MG DOSE (2X325MG) PO PRN (02:30)
[2023-11-06] MEDS ORDERED: MORP-69 PO (02:40)
[2023-11-06] MEDS ORDERED: ALPR0.5T3 PO (02:40)
[2023-11-06] MEDS ORDERED: OLAN1TAB16 PO (02:40)
[2023-11-06] MEDS ORDERED: ALPRAZolam 0.5 MG TAB PO PRN (02:45)
[2023-11-06] MEDS ORDERED: PINK BISMUTH SUSP 524MG/30ML ORAL SYRINGE PO PRN (02:45)
[2023-11-06] MEDS ORDERED: HOME MED LIST COMPLETE! XX SCH (02:45)
[2023-11-06] MEDS: NS 1,000 ML IV SCH (02:57)
[2023-11-06] MEDS: MORPHINE 2 MG/ML 1ML VIAL IV PRN (03:01)
[2023-11-06] MEDS: FAMOTIDINE IV BAG 20 MG in IV 1 EA IV ONE (03:05)
[2023-11-06] MEDS ORDERED: MORP15TA2 PO (03:41)
[2023-11-06] MEDS: PROCHLORPERAZINE 5MG TAB PO PRN (03:45)
[2023-11-06 04:07] VITALS: BP 164/97; TEMP 97.7; O2SAT 97
[2023-11-06] MEDS: ONDANSETRON 4MG 2ML VIAL IV PRN (04:28)
[2023-11-06] MEDS: PROMETHAZINE 25MG/ML 1ML VIAL IV ONE (05:41)
[2023-11-06 07:01] LABS: HEMATOCRIT 31.9 % (36.0-47.0); HEMOGLOBIN 10.6 g/dl (12.0-15.5); MEAN CORPUSCULAR HEMOGLOBIN 30.7 pg (27.0-33.0); MEAN CORPUSCULAR HGB CONC 33.2 g/dl (32.0-36.5); MEAN CORPUSCULAR VOLUME 92.5 fl (80.0-96.0); PLATELET COUNT, AUTOMATED 255 10^3/uL (150-450); RED BLOOD COUNT 3.45 10^6/uL (4.00-5.40); WHITE BLOOD COUNT 7.8 10^3/uL (4.0-10.0)
[2023-11-06 07:14] LABS: INR 1.16; PARTIAL THROMBOPLASTIN TIME 28.5 SECONDS (24.8-34.2); PROTHROMBIN TIME 14.4 SECONDS (12.5-14.5)
[2023-11-06 07:26] LABS: ALBUMIN 2.6 G/DL (3.2-5.2); ALKALINE PHOSPHATASE 165 U/L (46-116); ALT/SGPT 13 U/L (7.0-40); AST/SGOT 20 U/L (<34); BILIRUBIN,TOTAL 0.5 MG/DL (0.3-1.2); BLOOD UREA NITROGEN 6 MG/DL (9-23); CALCIUM LEVEL 8.4 MG/DL (8.5-10.1); CARBON DIOXIDE LEVEL 26 MMOL/L (20-31); CHLORIDE LEVEL 105 MMOL/L (98-107); CREATININE FOR GFR 0.52 MG/DL (0.55-1.30); GLOMERULAR FILTRATION RATE > 60.0 (>58); GLUCOSE, FASTING 119 MG/DL (60-100); MAGNESIUM LEVEL 1.5 MG/DL (1.8-2.4); POTASSIUM SERUM 3.8 MMOL/L (3.5-5.1); SODIUM LEVEL 139 MMOL/L (136-145); TOTAL PROTEIN 5.7 G/DL (5.7-8.2)
[2023-11-06] MEDS: INSULIN LISPRO (NovoLOG) PER UNIT SC SCH ×2 (07:30→21:00)
[2023-11-06 07:32] LABS: PROCALCITONIN <0.04 ng/ml
[2023-11-06] MEDS: MORPHINE 30 MG TAB **MSIR PO PRN (07:43)
[2023-11-06] MEDS: DOCUSATE SODIUM 100MG CAPSULE PO SCH (09:00)
[2023-11-06] MEDS: FAMOTIDINE 20 MG TAB PO SCH (09:00)
[2023-11-06] MEDS: GABAPENTIN 300 MG CAP PO SCH (09:00)
[2023-11-06] MEDS: FLUoxetine 20MG CAP PO SCH (09:00)
[2023-11-06] MEDS: APIXABAN 5 MG TAB (ELIQUIS) PO SCH (09:00)
[2023-11-06] MEDS: MORPHINE 15 MG SA TAB PO SCH (11:33)
[2023-11-06 14:00] VITALS: BP 155/95; TEMP 98.9; O2SAT 98
[2023-11-06] MEDS: MAGNESIUM OXIDE 400MG TAB (MAG-OX) PO ONE (15:34)
[2023-11-06] MEDS: MAG SULF 1GM/100ML (MAG RUN) 1 GM in IV 1 EA IV ONE (15:34)
[2023-11-06 22:00] VITALS: BP 139/84; TEMP 97.7; O2SAT 96
[2023-11-07] MEDS ORDERED: SODIUM CHLORIDE 0.9% INJ 10 ML SYR IV PRN (00:15)
[2023-11-07] MEDS ORDERED: PILL CUTTER 1 EACH XX ONE (05:25)
[2023-11-07 05:44] VITALS: BP 136/84; TEMP 96.6; O2SAT 97
[2023-11-07 07:45] VITALS: TEMP 97.7; O2SAT 98
[2023-11-07] MEDS: SODIUM CHLORIDE 0.9% INJ 10 ML SYR IV SCH (08:33)
[2023-11-09] MEDS ORDERED: DEXA5TA PO (15:46)
== END 2023-11-07 14:05 | disposition home or self-care (01) ==
LOC: M ED 21:03 → M ED INP 21:04 → ENRESERVDT 11-06 03:36 → ENRESERVTM 11-06 03:36 → M MS5PR 11-06 04:10
PROVIDERS: ADMIT Preventive Medicine Undersea and Hyperbaric Medicine; ATTEND Hospitalist
DX: R10.9 Unspecified abdominal pain (principal); R11.2 Nausea with vomiting, unspecified; C78.7 Secondary malignant neoplasm of liver and intrahepatic bile duct; C25.9 Malignant neoplasm of pancreas, unspecified; G89.3 Neoplasm related pain (acute) (chronic); R18.8 Other ascites; D64.9 Anemia, unspecified; N18.30 Chronic kidney disease, stage 3 unspecified; F10.11 Alcohol abuse, in remission; E11.9 Type 2 diabetes mellitus without complications; R91.8 Other nonspecific abnormal finding of lung field; K21.9 Gastro-esophageal reflux disease without esophagitis; E78.5 Hyperlipidemia, unspecified; F32.A Depression, unspecified; R56.9 Unspecified convulsions; J45.909 Unspecified asthma, uncomplicated; R07.9 Chest pain, unspecified; R06.02 Shortness of breath; R19.7 Diarrhea, unspecified; R33.9 Retention of urine, unspecified; F41.0 Panic disorder [episodic paroxysmal anxiety]; R51.9 Headache, unspecified; Z88.8 Allergy status to other drugs, medicaments and biological substances; Z88.3 Allergy status to other anti-infective agents; Z87.891 Personal history of nicotine dependence; Z79.899 Other long term (current) drug therapy; Z79.01 Long term (current) use of anticoagulants; Z79.891 Long term (current) use of opiate analgesic; Z66 Do not resuscitate
CPT/HCPCS: 74176; 80047; 80053; 80076; 81001; 83690; 83735; 84145; 85025; 85027; 85610; 85730; 87486; 87581; 87633; 87798; 96361; 96365; 96375; 96376; 99284; J1630; J2405; J2550; J3475; S0028

== ENCOUNTER 2023-11-14 11:36 | Emergency (ER) | payer OTHER ==
[~2023-11-14] VITALS: Ht 170.2 cm; Wt 61.3 kg
[~2023-11-14 11:36] MED LIST changes: +DEXA5TA PO
[2023-11-14 12:48] LABS: BASO % 0.4 % (0.0-1.0); EOS # 0.1 10^3/uL (0.0-0.5); EOS % 1.3 % (0.0-3.0); HEMOGLOBIN 10.7 g/dl (12.0-15.5); LYMPH # 1.7 10^3/uL (1.5-5.0); MEAN CORPUSCULAR HEMOGLOBIN 30.9 pg (27.0-33.0); MEAN CORPUSCULAR HGB CONC 32.4 g/dl (32.0-36.5); MEAN CORPUSCULAR VOLUME 95.4 fl (80.0-96.0); MONO # 0.5 10^3/uL (0.0-0.8); MONO % 6.2 % (2.0-8.0); NEUTROPHILS # 5.6 10^3/uL (1.5-8.5); NEUTROPHILS % 70.8 % (36.0-66.0); PLATELET COUNT, AUTOMATED 160 10^3/uL (150-450); RED BLOOD COUNT 3.46 10^6/uL (4.00-5.40); WHITE BLOOD COUNT 7.9 10^3/uL (4.0-10.0)
[2023-11-14 13:23] LABS: BILIRUBIN,DIRECT 0.2 MG/DL (<0.4); BILIRUBIN,TOTAL 0.4 MG/DL (0.3-1.2); TOTAL PROTEIN 6.2 G/DL (5.7-8.2)
[2023-11-14] MEDS: MORPHINE 10MG/0.5ML ORAL CONCENTRATE SOLUTION U/D SL STA (14:53)
[2023-11-14] MEDS: ONDANSETRON 4MG 2ML VIAL IV ONE (14:53)
[2023-11-14] MEDS: NS 1,000 ML IV ONE (16:12)
[2023-11-14] MEDS: HYDROMORPHONE HCL 0.5 MG/ 0.5 ML SYRINGE IV ONE ×2 (16:13→17:54)
[2023-11-14 17:51] VITALS: BP 136/95; TEMP 99.5; O2SAT 98
== END 2023-11-14 18:09 | disposition home or self-care (01) ==
LOC: M ED 11:36
DX: G89.3 Neoplasm related pain (acute) (chronic) (principal); C25.9 Malignant neoplasm of pancreas, unspecified; C78.7 Secondary malignant neoplasm of liver and intrahepatic bile duct; E11.9 Type 2 diabetes mellitus without complications; E78.5 Hyperlipidemia, unspecified; Z87.442 Personal history of urinary calculi; Z87.448 Personal history of other diseases of urinary system; Z92.21 Personal history of antineoplastic chemotherapy; N18.30 Chronic kidney disease, stage 3 unspecified; Z86.718 Personal history of other venous thrombosis and embolism; Z87.891 Personal history of nicotine dependence; Z79.01 Long term (current) use of anticoagulants; Z79.4 Long term (current) use of insulin; Z79.899 Other long term (current) drug therapy; Z88.1 Allergy status to other antibiotic agents; Z88.8 Allergy status to other drugs, medicaments and biological substances; Z91.89 Other specified personal risk factors, not elsewhere classified
CPT/HCPCS: 74176; 80047; 80076; 81001; 83690; 85025; 96361; 96374; 96375; 96376; 99284; J1170; J2405

== ENCOUNTER 2023-11-15 10:30 | Observation (INO) | payer OTHER ==
[~2023-11-15] VITALS: Ht 170.2 cm; Wt 58.8 kg
[~2023-11-15 10:30] MED LIST changes: +DOXY-323 PO; -DOXY-443 PO
[2023-11-15 11:11] LABS: BASO % 0.4 % (0.0-1.0); EOS # 0.2 10^3/uL (0.0-0.5); EOS % 2.3 % (0.0-3.0); HEMATOCRIT 35.2 % (36.0-47.0); HEMOGLOBIN 11.4 g/dl (12.0-15.5); LYMPH # 1.7 10^3/uL (1.5-5.0); LYMPH % 20.4 % (24.0-44.0); MEAN CORPUSCULAR HEMOGLOBIN 30.8 pg (27.0-33.0); MEAN CORPUSCULAR HGB CONC 32.4 g/dl (32.0-36.5); MEAN CORPUSCULAR VOLUME 95.1 fl (80.0-96.0); MONO # 0.4 10^3/uL (0.0-0.8); MONO % 5.1 % (2.0-8.0); NEUTROPHILS % 71.6 % (36.0-66.0); PLATELET COUNT, AUTOMATED 182 10^3/uL (150-450); WHITE BLOOD COUNT 8.4 10^3/uL (4.0-10.0)
[2023-11-15 11:26] LABS: INR 1.11
[2023-11-15] MEDS ORDERED: PILL CUTTER 1 EACH XX ONE (12:30)
[2023-11-15] MEDS: MORPHINE 30 MG TAB **MSIR PO ONE (12:34)
[2023-11-15] MEDS: MORPHINE 15 MG SA TAB PO ONE (12:34)
[2023-11-15 12:42] LABS: BLOOD UREA NITROGEN 7 MG/DL (9-23); CALCIUM LEVEL 9.2 MG/DL (8.5-10.1); CARBON DIOXIDE LEVEL 21.9 MMOL/L (20-31); CHLORIDE LEVEL 107 MMOL/L (98-107); CREATININE FOR GFR 0.58 MG/DL (0.55-1.30); GLOMERULAR FILTRATION RATE > 60.0 (>58); GLUCOSE, FASTING 140 MG/DL (60-100); POTASSIUM SERUM 3.7 MMOL/L (3.5-5.1); SODIUM LEVEL 139 MMOL/L (136-145)
[2023-11-15 12:43] LABS: ALKALINE PHOSPHATASE 229 U/L (46-116); ALT/SGPT 16 U/L (7.0-40); AST/SGOT 17 U/L (<34); TOTAL PROTEIN 6.5 G/DL (5.7-8.2)
[2023-11-15 12:44] LABS: LIPASE 26 U/L (12-53)
[2023-11-15 13:08] LABS: BILIRUBIN,DIRECT 0.2 MG/DL (<0.4); BILIRUBIN,TOTAL 0.6 MG/DL (0.3-1.2)
[2023-11-15] MEDS ORDERED: GLUCOSE 4 GM CHEW PO PRN (14:40)
[2023-11-15] MEDS ORDERED: GLUCAGON INJ 1MG VIAL SC PRN (14:40)
[2023-11-15] MEDS ORDERED: DEXTROSE 50% 50ML SYRINGE IV PRN (14:40)
[2023-11-15] MEDS ORDERED: HOME MED LIST COMPLETE! XX SCH (15:15)
[2023-11-15] MEDS ORDERED: PROCHLORPERAZINE 5MG TAB PO PRN (15:20)
[2023-11-15] MEDS ORDERED: PINK BISMUTH SUSP 524MG/30ML ORAL SYRINGE PO PRN (15:20)
[2023-11-15] MEDS ORDERED: ONDANSETRON 4MG TAB PO PRN (15:20)
[2023-11-15] MEDS ORDERED: ALPRAZolam 0.5 MG TAB PO PRN (15:20)
[2023-11-15] MEDS: NS 1,000 ML IV SCH (15:24)
[2023-11-15] MEDS: FIDAXOMICIN 200 MG TAB (DIFICID) PO SCH (15:24)
[2023-11-15] MEDS ORDERED: PILL CUTTER 1 EACH XX PRN (15:30)
[2023-11-15] MEDS: MORPHINE 30 MG TAB **MSIR PO PRN (15:47)
[2023-11-15] MEDS: GABAPENTIN 300 MG CAP PO SCH (15:48)
[2023-11-15 16:30] VITALS: BP 136/89; TEMP 97.8; O2SAT 100
[2023-11-15] MEDS: INSULIN LISPRO (NovoLOG) PER UNIT SC SCH ×2 (17:37→21:00)
[2023-11-15 20:13] VITALS: BP 133/81; TEMP 97.5; O2SAT 99
[2023-11-15] MEDS: APIXABAN 5 MG TAB (ELIQUIS) PO SCH (22:33)
[2023-11-15] MEDS: OLANZapine 5 MG TAB PO SCH (22:34)
[2023-11-15] MEDS: FAMOTIDINE 20 MG TAB PO SCH (22:34)
[2023-11-15] MEDS: MORPHINE 15 MG SA TAB PO SCH (22:34)
[2023-11-15 23:24] VITALS: BP 165/91; TEMP 97.4; O2SAT 98
[2023-11-16 03:33] VITALS: BP 126/62; TEMP 97.3; O2SAT 98
[2023-11-16 06:07] LABS: BASO % 0.4 % (0.0-1.0); EOS # 0.3 10^3/uL (0.0-0.5); EOS % 3.9 % (0.0-3.0); HEMATOCRIT 32.3 % (36.0-47.0); HEMOGLOBIN 10.5 g/dl (12.0-15.5); LYMPH # 2.1 10^3/uL (1.5-5.0); LYMPH % 28.5 % (24.0-44.0); MEAN CORPUSCULAR HEMOGLOBIN 30.4 pg (27.0-33.0); MEAN CORPUSCULAR HGB CONC 32.5 g/dl (32.0-36.5); MEAN CORPUSCULAR VOLUME 93.6 fl (80.0-96.0); MONO # 0.6 10^3/uL (0.0-0.8); MONO % 8.5 % (2.0-8.0); NEUTROPHILS # 4.2 10^3/uL (1.5-8.5); NEUTROPHILS % 58.4 % (36.0-66.0); PLATELET COUNT, AUTOMATED 165 10^3/uL (150-450); RED BLOOD COUNT 3.45 10^6/uL (4.00-5.40); WHITE BLOOD COUNT 7.2 10^3/uL (4.0-10.0)
[2023-11-16 06:37] LABS: BLOOD UREA NITROGEN 6 MG/DL (9-23); CALCIUM LEVEL 8.5 MG/DL (8.5-10.1); CARBON DIOXIDE LEVEL 27 MMOL/L (20-31); CHLORIDE LEVEL 110 MMOL/L (98-107); CREATININE FOR GFR 0.57 MG/DL (0.55-1.30); GLOMERULAR FILTRATION RATE > 60.0 (>58); GLUCOSE, FASTING 116 MG/DL (60-100); MAGNESIUM LEVEL 1.5 MG/DL (1.8-2.4); SODIUM LEVEL 142 MMOL/L (136-145)
[2023-11-16 07:44] VITALS: BP 154/85; TEMP 98.2; O2SAT 98
[2023-11-16] MEDS ORDERED: MORP15TA2 PO (07:54)
[2023-11-16] MEDS ORDERED: ALPR0.5T3 PO (07:54)
[2023-11-16] MEDS ORDERED: FIDA200TA PO (08:20)
[2023-11-16] MEDS: ACETAMINOPHEN TAB 650MG DOSE (2X325MG) PO PRN (08:26)
[2023-11-16] MEDS: MULTIVITAMINS/MINERALS THERAP 1 TAB PO SCH (08:27)
[2023-11-16] MEDS: FLUoxetine 20MG CAP PO SCH (08:27)
[2023-11-16] MEDS: MAG SULF 1GM/100ML (MAG RUN) 1 GM in IV 1 EA IV SCH (08:29)
[2023-11-16] MEDS ORDERED: ENOXAPARIN 40MG/0.4ML SYRINGE (J1650 PER 10MG) SC SCH (09:00)
[2023-11-30] MEDS ORDERED: DEXA5TA PO ×2 (09:07→09:37)
== END 2023-11-16 14:08 | disposition home or self-care (01) ==
LOC: M ED 10:30 → M ED INP 14:07 → ENRESERV 15:13 → M PCU 16:40
PROVIDERS: ADMIT Internal Medicine; ATTEND Internal Medicine
DX: A04.72 Enterocolitis due to Clostridium difficile, not specified as recurrent (principal); C25.9 Malignant neoplasm of pancreas, unspecified; C78.7 Secondary malignant neoplasm of liver and intrahepatic bile duct; G89.3 Neoplasm related pain (acute) (chronic); E11.9 Type 2 diabetes mellitus without complications; E78.5 Hyperlipidemia, unspecified; R56.9 Unspecified convulsions; F51.9 Sleep disorder not due to a substance or known physiological condition, unspecified; F32.A Depression, unspecified; F41.0 Panic disorder [episodic paroxysmal anxiety]; F10.11 Alcohol abuse, in remission; Z87.891 Personal history of nicotine dependence; K21.9 Gastro-esophageal reflux disease without esophagitis; Z79.899 Other long term (current) drug therapy; Z79.4 Long term (current) use of insulin; Z79.01 Long term (current) use of anticoagulants; Z79.891 Long term (current) use of opiate analgesic; Z88.8 Allergy status to other drugs, medicaments and biological substances; Z88.3 Allergy status to other anti-infective agents; Z91.048 Other nonmedicinal substance allergy status; Z66 Do not resuscitate; Z87.442 Personal history of urinary calculi; Z87.448 Personal history of other diseases of urinary system; Z92.21 Personal history of antineoplastic chemotherapy; N18.30 Chronic kidney disease, stage 3 unspecified; Z86.718 Personal history of other venous thrombosis and embolism; Z88.1 Allergy status to other antibiotic agents; Z91.89 Other specified personal risk factors, not elsewhere classified
CPT/HCPCS: 36415; 74176; 80047; 80048; 80076; 81001; 83605; 83690; 83735; 84145; 85025; 85610; 86850; 86900; 86901; 87507; 96361; 96374; 96375; 96376; 99284; 99285; J1170; J1815; J2405; J3475

== ENCOUNTER 2023-11-16 14:13 | Outpatient (CLI) | payer OTHER ==
[~2023-11-16] VITALS: Ht 170.2 cm; Wt 58.8 kg
[~2023-11-16 14:13] MED LIST changes: -DOXY-323 PO; +DOXY-443 PO; +FIDA200TA PO
[2023-11-16 14:20] VITALS: BP 160/69; O2SAT 100
[2023-11-16] MEDS: BEZLOTOXUMAB 600 MG in NS 100 ML IV ONE (14:39)
[2023-11-16 15:40] VITALS: BP 147/78; O2SAT 97
== END 2023-11-16 15:40 | disposition home or self-care (01) ==
LOC: M INFU 14:13
DX: A04.72 Enterocolitis due to Clostridium difficile, not specified as recurrent (principal); C78.89 Secondary malignant neoplasm of other digestive organs; Z92.21 Personal history of antineoplastic chemotherapy
CPT/HCPCS: 96365; J0565

== ENCOUNTER → 2023-11-30 | Outpatient (CLI) | payer OTHER ==
[~2023-11-30] VITALS: Ht 170.2 cm; Wt 59.7 kg
[~2023-11-30] MED LIST changes: +DOXY-323 PO; -DOXY-443 PO
[2023-11-30 09:04] VITALS: BP 131/86; O2SAT 99
== END ==
LOC: M PAL 08:44
PROVIDERS: ATTEND Nurse Practitioner Adult Health
DX: G89.3 Neoplasm related pain (acute) (chronic) (principal); C25.8 Malignant neoplasm of overlapping sites of pancreas; C78.00 Secondary malignant neoplasm of unspecified lung; C78.7 Secondary malignant neoplasm of liver and intrahepatic bile duct; F41.9 Anxiety disorder, unspecified; Z66 Do not resuscitate; Z51.5 Encounter for palliative care; Z79.01 Long term (current) use of anticoagulants; Z79.4 Long term (current) use of insulin; Z79.52 Long term (current) use of systemic steroids; Z79.891 Long term (current) use of opiate analgesic; Z79.899 Other long term (current) drug therapy; Z88.1 Allergy status to other antibiotic agents; Z88.8 Allergy status to other drugs, medicaments and biological substances; Z90.710 Acquired absence of both cervix and uterus; Z91.048 Other nonmedicinal substance allergy status; Z92.21 Personal history of antineoplastic chemotherapy; K21.9 Gastro-esophageal reflux disease without esophagitis

== ENCOUNTER 2023-12-11 17:33 | Observation (INO) | payer OTHER ==
[~2023-12-11] VITALS: Ht 170.2 cm; Wt 56.8 kg
[2023-12-11] MEDS ORDERED: ISOVUE-370 76% 100ML VIAL As Ordered ONE (18:17)
[2023-12-11] MEDS: ONDANSETRON 4MG 2ML VIAL IV ONE (18:48)
[2023-12-11] MEDS: HYDROMORPHONE HCL 0.5 MG/ 0.5 ML SYRINGE IV ONE (18:48)
[2023-12-11] MEDS: NS 1,000 ML IV ONE (18:49)
[2023-12-11 18:56] LABS: BASO % 0.2 % (0.0-1.0); EOS # 0.1 10^3/uL (0.0-0.5); EOS % 0.4 % (0.0-3.0); HEMATOCRIT 34.1 % (36.0-47.0); HEMOGLOBIN 11.4 g/dl (12.0-15.5); LYMPH # 2.6 10^3/uL (1.5-5.0); LYMPH % 19.9 % (24.0-44.0); MEAN CORPUSCULAR HEMOGLOBIN 29.5 pg (27.0-33.0); MEAN CORPUSCULAR HGB CONC 33.4 g/dl (32.0-36.5); MEAN CORPUSCULAR VOLUME 88.3 fl (80.0-96.0); MONO % 7.3 % (2.0-8.0); NEUTROPHILS # 9.5 10^3/uL (1.5-8.5); NEUTROPHILS % 71.7 % (36.0-66.0); PLATELET COUNT, AUTOMATED 200 10^3/uL (150-450); RED BLOOD COUNT 3.86 10^6/uL (4.00-5.40); WHITE BLOOD COUNT 13.2 10^3/uL (4.0-10.0)
[2023-12-11 19:14] LABS: LIPASE 32 U/L (12-53)
[2023-12-11 19:16] LABS: ALKALINE PHOSPHATASE 289 U/L (46-116); ALT/SGPT 18 U/L (7.0-40); AST/SGOT 18 U/L (<34); BILIRUBIN,DIRECT 0.2 MG/DL (<0.4); BILIRUBIN,TOTAL 0.5 MG/DL (0.3-1.2); BLOOD UREA NITROGEN 12 MG/DL (9-23); CALCIUM LEVEL 9.3 MG/DL (8.5-10.1); CARBON DIOXIDE LEVEL 27 MMOL/L (20-31); CHLORIDE LEVEL 103 MMOL/L (98-107); CK-MB VALUE MASS < 1.0 NG/ML (<3.6); CPK CREATINE PHOSPHOKINASE 29 U/L (34-145); CREATININE FOR GFR 0.58 MG/DL (0.55-1.30); GLOMERULAR FILTRATION RATE > 60.0 (>58); GLUCOSE, FASTING 78 MG/DL (60-100); MB/CK RELATIVE INDEX 3.44 (< OR =4); POTASSIUM SERUM 3.3 MMOL/L (3.5-5.1); SODIUM LEVEL 138 MMOL/L (136-145); TOTAL PROTEIN 6.1 G/DL (5.7-8.2)
[2023-12-11 19:20] LABS: INR 1.28; PROTHROMBIN TIME 15.6 SECONDS (12.5-14.5)
[2023-12-11] MEDS ORDERED: HEPARIN SOD (PORCINE) 5000UNITS/ML 1ML VIAL/SYRINGE IV PRN (19:50)
[2023-12-11 20:09] LABS: PARTIAL THROMBOPLASTIN TIME 25.2 SECONDS (24.8-34.2)
[2023-12-11] MEDS ORDERED: HOME MED LIST COMPLETE! XX SCH (20:25)
[2023-12-11] MEDS: MORPHINE 4 MG/ML 1ML VIAL IV ONE (20:29)
[2023-12-11] MEDS: POTASSIUM CHLORIDE 10% LIQ 20MEQ/15ML UDC PO ONE (20:34)
[2023-12-11] MEDS: HEPARIN SOD (PORCINE) 5000UNITS/ML 1ML VIAL/SYRINGE IV ONE (20:36)
[2023-12-11] MEDS: HEPARIN DRIP 25,000 UNITS in IV 1 EA IV SCH (20:37)
[2023-12-11] MEDS: INSULIN LISPRO (NovoLOG) PER UNIT SC SCH (21:00)
[2023-12-11] MEDS ORDERED: ACETAMINOPHEN TAB 650MG DOSE (2X325MG) PO PRN (22:05)
[2023-12-11] MEDS ORDERED: ONDANSETRON 4MG TAB PO PRN (22:20)
[2023-12-11] MEDS ORDERED: DEXTROSE 50% 50ML SYRINGE IV PRN (22:20)
[2023-12-11] MEDS ORDERED: GLUCOSE 4 GM CHEW PO PRN (22:20)
[2023-12-11] MEDS ORDERED: PINK BISMUTH SUSP 524MG/30ML ORAL SYRINGE PO PRN (22:20)
[2023-12-11] MEDS ORDERED: GLUCAGON INJ 1MG VIAL SC PRN (22:20)
[2023-12-11] MEDS ORDERED: ALPRAZolam 0.5 MG TAB PO PRN (22:20)
[2023-12-11 23:09] LABS: CK-MB VALUE MASS < 1.0 NG/ML (<3.6)
[2023-12-11 23:11] LABS: CPK CREATINE PHOSPHOKINASE 30 U/L (34-145); MB/CK RELATIVE INDEX 3.33 (< OR =4)
[2023-12-11] MEDS: FAMOTIDINE 20 MG TAB PO SCH (23:47)
[2023-12-11] MEDS: GABAPENTIN 300 MG CAP PO SCH (23:47)
[2023-12-11] MEDS: ENOXAPARIN 60MG/0.6ML SYRINGE (J1650 PER 10MG) SC SCH (23:48)
[2023-12-11] MEDS: PIPERACILLIN/TAZOBACTAM SOD 4.5 GM in D5W MINI-BAG PLUS 50 ML IV SCH (23:48)
[2023-12-12] MEDS: HYDROMORPHONE HCL 0.5 MG/ 0.5 ML SYRINGE IV PRN ×2 (01:05→12:25)
[2023-12-12 06:16] LABS: HEMATOCRIT 33.4 % (36.0-47.0); MEAN CORPUSCULAR HEMOGLOBIN 29.6 pg (27.0-33.0); MEAN CORPUSCULAR HGB CONC 32.9 g/dl (32.0-36.5); MEAN CORPUSCULAR VOLUME 89.8 fl (80.0-96.0); PLATELET COUNT, AUTOMATED 158 10^3/uL (150-450); RED BLOOD COUNT 3.72 10^6/uL (4.00-5.40)
[2023-12-12 06:42] LABS: BLOOD UREA NITROGEN 11 MG/DL (9-23); CALCIUM LEVEL 8.7 MG/DL (8.5-10.1); CARBON DIOXIDE LEVEL 27 MMOL/L (20-31); CHLORIDE LEVEL 105 MMOL/L (98-107); CREATININE FOR GFR 0.66 MG/DL (0.55-1.30); GLOMERULAR FILTRATION RATE > 60.0 (>58); GLUCOSE, FASTING 112 MG/DL (60-100); MAGNESIUM LEVEL 1.5 MG/DL (1.8-2.4); POTASSIUM SERUM 3.6 MMOL/L (3.5-5.1); SODIUM LEVEL 140 MMOL/L (136-145)
[2023-12-12] MEDS ORDERED: LOVE0.4I2 SC (06:47)
[2023-12-12] MEDS: INSULIN LISPRO (NovoLOG) PER UNIT SC SCH (07:30)
[2023-12-12] MEDS: MAG SULF 1GM/100ML (MAG RUN) 1 GM in IV 1 EA IV SCH (08:24)
[2023-12-12 09:20] VITALS: BP 127/84; TEMP 97.8; O2SAT 95
[2023-12-12 09:30] VITALS: BP 127/84; O2SAT 95
[2023-12-12] MEDS: FLUoxetine 20MG CAP PO SCH (09:39)
[2023-12-12 10:00] VITALS: O2SAT 95
[2023-12-12] MEDS ORDERED: MORP15TA2 PO ×2 (10:14→13:40)
[2023-12-12 12:00] VITALS: BP 142/88; TEMP 97.8; O2SAT 99
[2023-12-12 12:25] VITALS: O2SAT 99
[2023-12-12] MEDS: SODIUM CHLORIDE 0.9% INJ 10 ML SYR IV SCH (12:40)
[2023-12-12] MEDS ORDERED: ALPR0.5T3 PO (13:40)
[2023-12-12] MEDS ORDERED: MORP-69 PO (13:40)
[2023-12-12] MEDS ORDERED: FAMO20TA4 PO (13:40)
[2023-12-12] MEDS ORDERED: OLANZapine 5 MG TAB PO SCH (21:00)
== END 2023-12-12 12:45 | disposition home or self-care (01) ==
LOC: M ED 17:33 → INTOOBSV 21:58 → M ED INP 21:58 → M ICU 12-12 09:21
PROVIDERS: ADMIT Family Medicine; ATTEND Family Medicine
DX: I26.99 Other pulmonary embolism without acute cor pulmonale (principal); R07.1 Chest pain on breathing; C78.7 Secondary malignant neoplasm of liver and intrahepatic bile duct; C25.0 Malignant neoplasm of head of pancreas; D73.89 Other diseases of spleen; R00.0 Tachycardia, unspecified; E11.42 Type 2 diabetes mellitus with diabetic polyneuropathy; R56.9 Unspecified convulsions; R51.9 Headache, unspecified; Z86.718 Personal history of other venous thrombosis and embolism; K21.9 Gastro-esophageal reflux disease without esophagitis; F32.A Depression, unspecified; F41.0 Panic disorder [episodic paroxysmal anxiety]; E78.5 Hyperlipidemia, unspecified; Z87.891 Personal history of nicotine dependence; F10.21 Alcohol dependence, in remission; R63.4 Abnormal weight loss; R63.0 Anorexia; R11.0 Nausea; R12 Heartburn; R53.83 Other fatigue; Z88.8 Allergy status to other drugs, medicaments and biological substances; Z91.048 Other nonmedicinal substance allergy status; Z88.3 Allergy status to other anti-infective agents; Z79.899 Other long term (current) drug therapy; Z79.01 Long term (current) use of anticoagulants; Z79.4 Long term (current) use of insulin; Z79.891 Long term (current) use of opiate analgesic; Z92.21 Personal history of antineoplastic chemotherapy; Z90.710 Acquired absence of both cervix and uterus; Z90.89 Acquired absence of other organs; Z95.9 Presence of cardiac and vascular implant and graft, unspecified; Z66 Do not resuscitate
CPT/HCPCS: 36415; 71045; 71260; 74177; 80048; 80076; 82550; 82553; 83690; 83735; 83880; 84484; 85025; 85027; 85610; 85730; 93005; 93041; 93970; 94760; 96361; 96365; 96366; 96367; 96372; 96375; 96376; 99285; J1170; J1650; J2405; J2543; J3475; Q9967

== ENCOUNTER 2023-12-13 07:44 | Emergency (ER) | payer OTHER ==
[~2023-12-13] VITALS: Ht 170.2 cm; Wt 56.3 kg
[~2023-12-13 07:44] MED LIST changes: +LOVE0.4I2 SC
[2023-12-13] MEDS ORDERED: SODIUM CHLORIDE 0.9% INJ 10 ML SYR IV PRN (09:00)
[2023-12-13] MEDS ORDERED: PILL CUTTER 1 EACH XX ONE (09:37)
[2023-12-13 09:41] LABS: BASO % 0.4 % (0.0-1.0); EOS # 0.1 10^3/uL (0.0-0.5); EOS % 1.7 % (0.0-3.0); HEMATOCRIT 33.4 % (36.0-47.0); HEMOGLOBIN 11.1 g/dl (12.0-15.5); LYMPH # 1.9 10^3/uL (1.5-5.0); LYMPH % 22.7 % (24.0-44.0); MEAN CORPUSCULAR HEMOGLOBIN 30.1 pg (27.0-33.0); MEAN CORPUSCULAR HGB CONC 33.2 g/dl (32.0-36.5); MEAN CORPUSCULAR VOLUME 90.5 fl (80.0-96.0); MONO # 0.7 10^3/uL (0.0-0.8); MONO % 7.8 % (2.0-8.0); NEUTROPHILS # 5.7 10^3/uL (1.5-8.5); NEUTROPHILS % 66.9 % (36.0-66.0); PLATELET COUNT, AUTOMATED 175 10^3/uL (150-450); RED BLOOD COUNT 3.69 10^6/uL (4.00-5.40); WHITE BLOOD COUNT 8.5 10^3/uL (4.0-10.0)
[2023-12-13] MEDS: ONDANSETRON 4MG ORAL DISINTEGRATING TAB PO ONE (09:41)
[2023-12-13] MEDS: MORPHINE 30 MG TAB **MSIR PO PRN (09:41)
[2023-12-13] MEDS: ENOXAPARIN 60MG/0.6ML SYRINGE (J1650 PER 10MG) SC ONE (09:42)
[2023-12-13 09:56] LABS: INR 1.41; PARTIAL THROMBOPLASTIN TIME 30.1 SECONDS (24.8-34.2); PROTHROMBIN TIME 16.8 SECONDS (12.5-14.5)
[2023-12-13 10:06] LABS: LIPASE 40 U/L (12-53)
[2023-12-13 10:08] LABS: ALKALINE PHOSPHATASE 284 U/L (46-116); ALT/SGPT 18 U/L (7.0-40); AST/SGOT 22 U/L (<34); BILIRUBIN,DIRECT 0.2 MG/DL (<0.4); BILIRUBIN,TOTAL 0.6 MG/DL (0.3-1.2); BLOOD UREA NITROGEN 8 MG/DL (9-23); CALCIUM LEVEL 8.5 MG/DL (8.5-10.1); CARBON DIOXIDE LEVEL 26 MMOL/L (20-31); CHLORIDE LEVEL 103 MMOL/L (98-107); CREATININE FOR GFR 0.64 MG/DL (0.55-1.30); GLOMERULAR FILTRATION RATE > 60.0 (>58); GLUCOSE, FASTING 192 MG/DL (60-100); POTASSIUM SERUM 3.5 MMOL/L (3.5-5.1); SODIUM LEVEL 137 MMOL/L (136-145); TOTAL PROTEIN 5.9 G/DL (5.7-8.2)
[2023-12-13 11:03] VITALS: BP 130/79; TEMP 97.7; O2SAT 98
== END 2023-12-13 11:50 | disposition home or self-care (01) ==
LOC: M ED 07:44
DX: I26.99 Other pulmonary embolism without acute cor pulmonale (principal); Z87.891 Personal history of nicotine dependence; F41.9 Anxiety disorder, unspecified; F32.A Depression, unspecified; C25.9 Malignant neoplasm of pancreas, unspecified; F10.10 Alcohol abuse, uncomplicated; Z79.4 Long term (current) use of insulin; Z79.899 Other long term (current) drug therapy; Z88.1 Allergy status to other antibiotic agents; Z88.8 Allergy status to other drugs, medicaments and biological substances; Z91.89 Other specified personal risk factors, not elsewhere classified
CPT/HCPCS: 71045; 80048; 80076; 83690; 85025; 85610; 85730; 86850; 86900; 86901; 93005; 96374; 96375; 99284; J1650

== ENCOUNTER → 2023-12-29 | Outpatient (CLI) | payer OTHER ==
[~2023-12-29] MED LIST changes: +FLUO-365 PO; -FLUO20CA22 PO; +GASTROGRAFIN SOLUTION 30ML As Ordered ONE; +INSU100I48 SC; +ISOVUE-370 76% 100ML VIAL As Ordered ONE; +ONDA-282 PO; -ONDA4TAB6 PO
== END ==
LOC: M RAD 12:45
PROVIDERS: ATTEND Nurse Practitioner Adult Health
DX: C25.9 Malignant neoplasm of pancreas, unspecified (principal); J98.11 Atelectasis; I81 Portal vein thrombosis; C78.7 Secondary malignant neoplasm of liver and intrahepatic bile duct; R18.8 Other ascites; K82.8 Other specified diseases of gallbladder; C78.89 Secondary malignant neoplasm of other digestive organs
CPT/HCPCS: 74177; Q9963; Q9967

== ENCOUNTER → 2023-12-29 | Outpatient (CLI) | payer OTHER ==
[~2023-12-29] VITALS: Ht 170.2 cm; Wt 59.3 kg
[~2023-12-29] MED LIST changes: -FLUO-365 PO; +FLUO20CA22 PO; -GASTROGRAFIN SOLUTION 30ML As Ordered ONE; -INSU100I48 SC; -ISOVUE-370 76% 100ML VIAL As Ordered ONE; -ONDA-282 PO; +ONDA4TAB6 PO
[2023-12-29 08:08] VITALS: BP 103/76; O2SAT 99
== END ==
LOC: M PAL 08:03
PROVIDERS: ATTEND Nurse Practitioner Adult Health
DX: G89.3 Neoplasm related pain (acute) (chronic) (principal); C25.8 Malignant neoplasm of overlapping sites of pancreas; C78.00 Secondary malignant neoplasm of unspecified lung; C78.7 Secondary malignant neoplasm of liver and intrahepatic bile duct; F32.A Depression, unspecified; F41.9 Anxiety disorder, unspecified; Z86.711 Personal history of pulmonary embolism; Z51.5 Encounter for palliative care; Z79.01 Long term (current) use of anticoagulants; Z79.4 Long term (current) use of insulin; Z79.52 Long term (current) use of systemic steroids; Z79.891 Long term (current) use of opiate analgesic; Z79.899 Other long term (current) drug therapy; Z88.1 Allergy status to other antibiotic agents; Z88.8 Allergy status to other drugs, medicaments and biological substances; Z90.710 Acquired absence of both cervix and uterus; Z91.048 Other nonmedicinal substance allergy status; Z92.21 Personal history of antineoplastic chemotherapy; K21.9 Gastro-esophageal reflux disease without esophagitis; R11.0 Nausea

== ENCOUNTER 2024-01-08 06:04 | Emergency (ER) | payer OTHER ==
[~2024-01-08] VITALS: Ht 170.2 cm; Wt 57.5 kg
[~2024-01-08 06:04] MED LIST changes: +FLUO-365 PO; -FLUO20CA22 PO; +INSU100I48 SC; +ONDA-282 PO; -ONDA4TAB6 PO
[2024-01-08] MEDS: ONDANSETRON 4MG 2ML VIAL IV ONE (07:04)
[2024-01-08] MEDS: MORPHINE 4 MG/ML 1ML VIAL IV ONE (07:05)
[2024-01-08 07:26] LABS: BASO % 0.3 % (0.0-1.0); EOS # 0.3 10^3/uL (0.0-0.5); EOS % 3.3 % (0.0-3.0); HEMATOCRIT 34.2 % (36.0-47.0); LYMPH # 1.7 10^3/uL (1.5-5.0); LYMPH % 21.9 % (24.0-44.0); MEAN CORPUSCULAR HGB CONC 32.2 g/dl (32.0-36.5); MEAN CORPUSCULAR VOLUME 90.2 fl (80.0-96.0); MONO # 0.7 10^3/uL (0.0-0.8); MONO % 8.2 % (2.0-8.0); NEUTROPHILS # 5.2 10^3/uL (1.5-8.5); NEUTROPHILS % 65.9 % (36.0-66.0); PLATELET COUNT, AUTOMATED 213 10^3/uL (150-450); RED BLOOD COUNT 3.79 10^6/uL (4.00-5.40); WHITE BLOOD COUNT 7.9 10^3/uL (4.0-10.0)
[2024-01-08] MEDS ORDERED: ISOVUE-370 76% 100ML VIAL As Ordered ONE (07:42)
[2024-01-08 07:44] LABS: INR 1.23; PROTHROMBIN TIME 15.1 SECONDS (12.5-14.5)
[2024-01-08 08:06] LABS: ALBUMIN 2.8 G/DL (3.2-5.2); BILIRUBIN,DIRECT 0.4 MG/DL (<0.4); BILIRUBIN,TOTAL 0.8 MG/DL (0.3-1.2); TOTAL PROTEIN 5.8 G/DL (5.7-8.2)
[2024-01-08 08:31] VITALS: BP 131/88; TEMP 97.7; O2SAT 100
[2024-01-08] MEDS ORDERED: CREO3000 PO (14:59)
[2024-01-08] MEDS ORDERED: OXYC10TA12 PO ×2 (15:48→15:49)
[2024-01-08] MEDS ORDERED: TRAZ-252 PO ×2 (15:51)
== END 2024-01-08 09:10 | disposition home or self-care (01) ==
LOC: M ED 06:04
DX: R93.3 Abnormal findings on diagnostic imaging of other parts of digestive tract (principal); E11.9 Type 2 diabetes mellitus without complications; Z85.07 Personal history of malignant neoplasm of pancreas; Z86.718 Personal history of other venous thrombosis and embolism; F17.200 Nicotine dependence, unspecified, uncomplicated; Z79.4 Long term (current) use of insulin; Z79.899 Other long term (current) drug therapy; Z88.1 Allergy status to other antibiotic agents; Z88.8 Allergy status to other drugs, medicaments and biological substances; Z91.89 Other specified personal risk factors, not elsewhere classified
CPT/HCPCS: 74177; 80047; 80076; 83690; 85025; 85610; 96374; 96375; 99284; J2405; Q9967

== ENCOUNTER 2024-01-10 10:59 | Emergency (ER) | payer OTHER ==
[~2024-01-10] VITALS: Ht 170.2 cm; Wt 58.5 kg
[~2024-01-10 10:59] MED LIST changes: +CREO3000 PO; +OXYC10TA12 PO; +TRAZ-252 PO
[2024-01-10] MEDS: fentaNYL 100 MCG/2 ML INJECTION IV ONE (12:47)
[2024-01-10] MEDS: ONDANSETRON 4MG 2ML VIAL IV ONE (12:47)
[2024-01-10] MEDS: NS 1,000 ML IV ONE (12:47)
[2024-01-10 13:09] LABS: BASO % 0.5 % (0.0-1.0); EOS # 0.2 10^3/uL (0.0-0.5); EOS % 2.6 % (0.0-3.0); HEMATOCRIT 28.3 % (36.0-47.0); HEMOGLOBIN 9.1 g/dl (12.0-15.5); LYMPH % 15.2 % (24.0-44.0); MEAN CORPUSCULAR HEMOGLOBIN 29.4 pg (27.0-33.0); MEAN CORPUSCULAR HGB CONC 32.2 g/dl (32.0-36.5); MEAN CORPUSCULAR VOLUME 91.3 fl (80.0-96.0); MONO # 0.6 10^3/uL (0.0-0.8); MONO % 9.2 % (2.0-8.0); NEUTROPHILS # 4.7 10^3/uL (1.5-8.5); NEUTROPHILS % 72.2 % (36.0-66.0); PLATELET COUNT, AUTOMATED 164 10^3/uL (150-450); WHITE BLOOD COUNT 6.5 10^3/uL (4.0-10.0)
[2024-01-10 13:35] LABS: LIPASE 17 U/L (12-53)
[2024-01-10 13:39] LABS: ALBUMIN 2.4 G/DL (3.2-5.2); ALKALINE PHOSPHATASE 195 U/L (46-116); ALT/SGPT 18 U/L (7.0-40); AST/SGOT 21 U/L (<34); BILIRUBIN,DIRECT 0.4 MG/DL (<0.4); BILIRUBIN,TOTAL 0.7 MG/DL (0.3-1.2); BLOOD UREA NITROGEN 8 MG/DL (9-23); CALCIUM LEVEL 8.3 MG/DL (8.5-10.1); CARBON DIOXIDE LEVEL 24 MMOL/L (20-31); CHLORIDE LEVEL 107 MMOL/L (98-107); CREATININE FOR GFR 0.52 MG/DL (0.55-1.30); GLOMERULAR FILTRATION RATE > 60.0 (>58); GLUCOSE, FASTING 145 MG/DL (60-100); POTASSIUM SERUM 3.9 MMOL/L (3.5-5.1); SODIUM LEVEL 136 MMOL/L (136-145)
[2024-01-10] MEDS: HYDROMORPHONE HCL 0.5 MG/ 0.5 ML SYRINGE IV PRN (13:42)
[2024-01-10] MEDS ORDERED: MORP15TASA PO (14:23)
[2024-01-10 14:30] VITALS: BP 107/61; TEMP 98.2
[2024-01-10] MEDS: SODIUM CHLORIDE 0.9% INJ 10 ML SYR IV SCH (14:37)
[2024-01-10 15:06] VITALS: O2SAT 96
== END 2024-01-10 15:08 | disposition home or self-care (01) ==
LOC: M ED 10:59
DX: G89.3 Neoplasm related pain (acute) (chronic) (principal); R10.9 Unspecified abdominal pain; R78.5 Finding of other psychotropic drug in blood; F41.9 Anxiety disorder, unspecified; F32.9 Major depressive disorder, single episode, unspecified; R56.9 Unspecified convulsions; G43.909 Migraine, unspecified, not intractable, without status migrainosus; M54.50 Low back pain, unspecified; N18.30 Chronic kidney disease, stage 3 unspecified; Z85.07 Personal history of malignant neoplasm of pancreas; F17.200 Nicotine dependence, unspecified, uncomplicated; K76.89 Other specified diseases of liver; K82.8 Other specified diseases of gallbladder; Z96.89 Presence of other specified functional implants; Z79.4 Long term (current) use of insulin; Z79.899 Other long term (current) drug therapy; Z88.1 Allergy status to other antibiotic agents; Z88.8 Allergy status to other drugs, medicaments and biological substances; Z91.89 Other specified personal risk factors, not elsewhere classified
CPT/HCPCS: 76700; 80048; 80076; 81001; 83605; 83690; 85025; 87040; 93005; 93041; 96361; 96374; 96375; 96376; 99285; J1170; J2405; J3010

== ENCOUNTER → 2024-01-11 | Outpatient (CLI) | payer OTHER ==
[~2024-01-11] MED LIST changes: +MORP15TASA PO
== END ==
LOC: M ONCR 10:47
PROVIDERS: ATTEND General Practice
DX: C25.0 Malignant neoplasm of head of pancreas (principal); C78.7 Secondary malignant neoplasm of liver and intrahepatic bile duct; Z92.21 Personal history of antineoplastic chemotherapy; N20.0 Calculus of kidney; Z71.2 Person consulting for explanation of examination or test findings; Z79.891 Long term (current) use of opiate analgesic; Z79.4 Long term (current) use of insulin; Z79.899 Other long term (current) drug therapy; Z88.1 Allergy status to other antibiotic agents; Z90.710 Acquired absence of both cervix and uterus; Z91.048 Other nonmedicinal substance allergy status

== ENCOUNTER 2024-01-14 21:42 | Emergency (ER) | payer OTHER ==
[~2024-01-14] VITALS: Ht 170.2 cm; Wt 57.0 kg
[2024-01-14 21:42] VITALS: BP 119/81; TEMP 98.3; O2SAT 100
== END 2024-01-14 21:52 | disposition left against medical advice (07) ==
LOC: M ED 21:42
DX: Z53.21 Procedure and treatment not carried out due to patient leaving prior to being seen by health care provider (principal)

== ENCOUNTER → 2024-01-22 | Outpatient (CLI) | payer OTHER ==
[~2024-01-22] MED LIST changes: +DILA8TAB5 PO; +ZYPR5TAB2 PO
== END ==
LOC: M PAL 07:40
PROVIDERS: ATTEND Nurse Practitioner Adult Health
DX: C25.8 Malignant neoplasm of overlapping sites of pancreas (principal); C78.00 Secondary malignant neoplasm of unspecified lung; G89.3 Neoplasm related pain (acute) (chronic); C78.7 Secondary malignant neoplasm of liver and intrahepatic bile duct; F32.A Depression, unspecified; F41.9 Anxiety disorder, unspecified; Z51.5 Encounter for palliative care; Z86.711 Personal history of pulmonary embolism; Z79.01 Long term (current) use of anticoagulants; Z79.4 Long term (current) use of insulin; Z79.52 Long term (current) use of systemic steroids; Z79.891 Long term (current) use of opiate analgesic; Z79.899 Other long term (current) drug therapy; Z88.1 Allergy status to other antibiotic agents; Z88.8 Allergy status to other drugs, medicaments and biological substances; Z90.710 Acquired absence of both cervix and uterus; Z91.048 Other nonmedicinal substance allergy status; Z92.21 Personal history of antineoplastic chemotherapy; K21.9 Gastro-esophageal reflux disease without esophagitis; R11.0 Nausea

== ENCOUNTER 2024-01-24 13:05 | Outpatient (RCR) | payer OTHER ==
[~2024-01-24 13:05] MED LIST changes: -DILA8TAB5 PO; -ZYPR5TAB2 PO
== END 2024-01-28 ==
LOC: M ONCR 13:05
PROVIDERS: ATTEND General Practice
DX: Z51.0 Encounter for antineoplastic radiation therapy (principal); C25.9 Malignant neoplasm of pancreas, unspecified

== ENCOUNTER 2024-01-29 13:52 | Outpatient (RCR) | payer OTHER ==
[2024-01-30] MEDS ORDERED: ZYPR5TAB2 PO (09:55)
[2024-01-30] MEDS ORDERED: DILA8TAB5 PO (11:45)
[2024-01-30] MEDS ORDERED: LOVE0.4I2 SC (11:47)
== END 2024-01-30 ==
LOC: M ONCR 13:52
PROVIDERS: ATTEND General Practice
DX: Z51.0 Encounter for antineoplastic radiation therapy (principal); C25.9 Malignant neoplasm of pancreas, unspecified

== ENCOUNTER 2024-01-30 06:33 | Emergency (ER) | payer OTHER ==
[~2024-01-30] VITALS: Ht 170.2 cm; Wt 54.0 kg
[2024-01-30] MEDS: NS 1,000 ML IV ONE ×2 (07:28→09:40)
[2024-01-30] MEDS: MORPHINE 4 MG/ML 1ML VIAL IV PRN (07:28)
[2024-01-30] MEDS: METOCLOPRAMIDE INJ 10MG/2ML VIAL IV ONE (07:28)
[2024-01-30 07:30] LABS: BASO % 0.4 % (0.0-1.0); EOS # 0.3 10^3/uL (0.0-0.5); EOS % 3.1 % (0.0-3.0); HEMATOCRIT 34.7 % (36.0-47.0); HEMOGLOBIN 11.2 g/dl (12.0-15.5); LYMPH # 1.3 10^3/uL (1.5-5.0); LYMPH % 15.6 % (24.0-44.0); MEAN CORPUSCULAR HEMOGLOBIN 28.4 pg (27.0-33.0); MEAN CORPUSCULAR HGB CONC 32.3 g/dl (32.0-36.5); MEAN CORPUSCULAR VOLUME 88.1 fl (80.0-96.0); MONO # 0.7 10^3/uL (0.0-0.8); MONO % 8.2 % (2.0-8.0); NEUTROPHILS # 5.8 10^3/uL (1.5-8.5); NEUTROPHILS % 72.5 % (36.0-66.0); RED BLOOD COUNT 3.94 10^6/uL (4.00-5.40); WHITE BLOOD COUNT 8.1 10^3/uL (4.0-10.0)
[2024-01-30 07:40] LABS: INR 1.51; PROTHROMBIN TIME 17.7 SECONDS (12.5-14.5)
[2024-01-30 07:52] LABS: LIPASE 18 U/L (12-53)
[2024-01-30 07:54] LABS: ALKALINE PHOSPHATASE 423 U/L (46-116); ALT/SGPT 23 U/L (7.0-40); AST/SGOT 55 U/L (<34); BILIRUBIN,DIRECT 0.5 MG/DL (<0.4); BILIRUBIN,TOTAL 1.2 MG/DL (0.3-1.2); BLOOD UREA NITROGEN 8 MG/DL (9-23); CALCIUM LEVEL 8.9 MG/DL (8.5-10.1); CARBON DIOXIDE LEVEL 28 MMOL/L (20-31); CHLORIDE LEVEL 102 MMOL/L (98-107); GLOMERULAR FILTRATION RATE > 60.0 (>58); GLUCOSE, FASTING 132 MG/DL (60-100); POTASSIUM SERUM 4.1 MMOL/L (3.5-5.1); SODIUM LEVEL 136 MMOL/L (136-145); TOTAL PROTEIN 6.3 G/DL (5.7-8.2)
[2024-01-30 07:58] LABS: PLATELET COUNT, AUTOMATED 156 10^3/uL (150-450)
[2024-01-30] MEDS ORDERED: ISOVUE-370 76% 100ML VIAL As Ordered ONE (08:16)
[2024-01-30] MEDS ORDERED: ZYPR5TAB2 PO (09:55)
[2024-01-30] MEDS ORDERED: HOME MED LIST COMPLETE! XX SCH (10:00)
[2024-01-30] MEDS: HYDROMORPHONE HCL 0.5 MG/ 0.5 ML SYRINGE IV PRN (11:31)
[2024-01-30] MEDS ORDERED: DILA8TAB5 PO (11:45)
[2024-01-30] MEDS ORDERED: LOVE0.4I2 SC (11:47)
[2024-01-30 13:18] VITALS: BP 107/59; TEMP 96.8; O2SAT 98
== END 2024-01-30 13:26 | disposition home or self-care (01) ==
LOC: M ED 06:33 → EDBD 06:33 → M ED 13:26
DX: C25.9 Malignant neoplasm of pancreas, unspecified (principal); C78.7 Secondary malignant neoplasm of liver and intrahepatic bile duct; E86.0 Dehydration; I46.9 Cardiac arrest, cause unspecified; Z92.21 Personal history of antineoplastic chemotherapy; R16.1 Splenomegaly, not elsewhere classified; J45.909 Unspecified asthma, uncomplicated; F17.200 Nicotine dependence, unspecified, uncomplicated; R91.1 Solitary pulmonary nodule; Z79.4 Long term (current) use of insulin; Z79.899 Other long term (current) drug therapy; Z91.89 Other specified personal risk factors, not elsewhere classified; Z88.1 Allergy status to other antibiotic agents; Z88.8 Allergy status to other drugs, medicaments and biological substances
CPT/HCPCS: 71045; 72128; 72131; 74177; 80048; 80076; 83690; 85025; 85610; 92950; 93005; 93041; 94760; 96361; 96374; 96375; 96376; 99284; 99285; J0171; J0612; J1170; J2765; Q9967

== ENCOUNTER 2024-01-30 19:02 | Emergency (ER) | payer OTHER ==
[~2024-01-30 19:02] MED LIST changes: +DILA8TAB5 PO; +ZYPR5TAB2 PO
[2024-01-30] MEDS ORDERED: CALCIUM GLUCONATE 1,000MG/10ML VIAL (100MG/ML) ONE (19:06)
[2024-01-30] MEDS ORDERED: SODIUM BICARBONATE 8.4% INJ 50ML SYRINGE ONE (19:06)
[2024-01-30] MEDS ORDERED: EPINEPHrine 1MG/10ML SYRINGE 1.5IN ONE (19:06)
[2024-01-30] MEDS ORDERED: NOREPINEPHRINE 4MG IN D5 250ML 4 MG in IV 1 EA IV SCH (19:20)
== END 2024-01-30 23:58 | disposition expired ==
LOC: M ED 19:02 → EDBD 19:02 → M ED 23:58
DX: I46.9 Cardiac arrest, cause unspecified (principal); C25.9 Malignant neoplasm of pancreas, unspecified; K21.9 Gastro-esophageal reflux disease without esophagitis; N18.9 Chronic kidney disease, unspecified; F32.A Depression, unspecified; G43.909 Migraine, unspecified, not intractable, without status migrainosus; Z79.4 Long term (current) use of insulin; Z79.899 Other long term (current) drug therapy; Z88.1 Allergy status to other antibiotic agents; Z88.8 Allergy status to other drugs, medicaments and biological substances; Z91.89 Other specified personal risk factors, not elsewhere classified